=== PATIENT | female | born 1950 | race Caucasian/White ===

== ENCOUNTER 2023-11-07 19:32 | Inpatient (IN) | payer MEDICARE, MEDICAID, SELFPAY ==
[2023-11-07 19:58] VITALS: BP 188/77; PULSE 77; RESP 18; TEMP 36.8; O2SAT 96
[2023-11-07 21:52] VITALS: BP 170/71; PULSE 74; RESP 18; O2SAT 98
[2023-11-07] MEDS: Albuterol Sulfate 90 MCG 8 GM INHALER 2 PUFF INHALE (22:56)
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
[2023-11-08] MEDS: Acetaminophen 325 MG TABLET 650 MG PO ×2 (05:09→11:20)
[2023-11-08 08:00] VITALS: BP 153/76; PULSE 71; RESP 18; TEMP 36.4; O2SAT 98
[2023-11-08] MEDS: Loratadine 10 MG TABLET PO (08:22)
[2023-11-08] MEDS: Cyanocobalamin (Vitamin B-12) 1,000 MCG TABLET 1000 MCG PO (08:22)
[2023-11-08] MEDS: Cholecalciferol (Vitamin D3) 25 MCG TABLET PO (08:22)
[2023-11-08 08:36] LABS: Estimated Average Glucose 103 mg/dL; Hemoglobin A1C 114.7067 umol/L; Hemoglobin A1c % 5.2 % (<6.0); Total Hemoglobin (HGBA1C) 3445.2923 umol/L
[2023-11-08 08:48] LABS: Alanine Aminotransferase 20 U/L (0-31); Albumin Level 4.5 g/dL (3.5-5.0); Alkaline Phosphatase 65 U/L (39-117); Anion Gap 10 (12-20); Aspartate Amino Transferase 27 U/L (5-31); Bilirubin Total 0.5 mg/dL (0.0-1.0); Blood Urea Nitrogen 9 mg/dL (9-16); Calcium 9.6 mg/dL (8.4-10.2); Carbon Dioxide 29 mmol/L (22-29); Chloride 108 mmol/L (96-108); Cholesterol 183 mg/dL (<200); Estimated Glomerular Filt Rate > 60; Glucose Fasting 92 mg/dL (60-99); HDL Cholesterol 46 mg/dL (>40); LDL Cholesterol Calculated 103 mg/dL (<100); Potassium 4.2 mmol/L (3.3-5.1); Sodium 143 mmol/L (135-145); Total Protein 7.1 g/dL (6.5-8.0); Triglycerides 171 mg/dL (<150)
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
[2023-11-08] MEDS: Albuterol Sulfate 90 MCG 8 GM INHALER 2 PUFF INHALE (14:40)
[2023-11-08 20:00] VITALS: BP 137/72; PULSE 71; RESP 18; TEMP 36.8; O2SAT 99
[2023-11-09 08:49] VITALS: BP 146/65; PULSE 77; RESP 18; TEMP 36.4; O2SAT 100
[2023-11-09] MEDS: Cyanocobalamin (Vitamin B-12) 1,000 MCG TABLET 1000 MCG PO (09:33)
[2023-11-09] MEDS: Loratadine 10 MG TABLET PO (09:33)
[2023-11-09] MEDS: Cholecalciferol (Vitamin D3) 25 MCG TABLET PO (09:33)
[2023-11-09 13:58] VITALS: BMI 25.2
[2023-11-09] MEDS: Acetaminophen 325 MG TABLET 650 MG PO (14:15)
--- NOTE | 2023-11-09 15:44 | P.PNPSI_ITS ---
Subjective Subjective Date of Service: 11/09/23 Reason For Visit: Bipolar disorder Subjective Notes: Conditional Voluntary Interim History: The nursing staff reported the patient had been social pleasant, slept 2 hours. The hospital social worker reported that she was discharged last week from another hospital to the [facility] living room. On interview the patient remains with fast speech but easily redirectable. Mental Status Exam Mental Status Exam Patient Appearance: Appropriate Patient Orientation: Person and Situation Level of Consciousness: Awake and Appropriate Patient Behavior: Guarded and Passive Mood Description: Withdrawn Affect Description: Constricted Patient Cognition Impaired: Yes Ability to Follow Directions: Good Speech Pattern: Clear Hallucinations: None Delusions: Not Present Thought Process: Distracted and Slowed Thinking Thought Content: positive for [place] and positive for Poverty of Content Judgement: Fair Diagnostics Vital Signs (24Hr): Vital Signs - 24 hr 11/08/23 20:00 11/09/23 08:49 Temperature 98.3 F 97.6 F Pulse Rate 71 77 Respiratory Rate 18 18 Blood Pressure 137/72 146/65 H Pulse Oximetry 99 100 Oxygen Delivery Method Room Air Room Air BMI result Body Mass Index 25.2 Labs 11/08/23 08:20 Labs: Laboratory Results - last 48 hr 11/08/23 08:20 Sodium 143 Potassium 4.2 Chloride 108 Carbon Dioxide 29 Anion Gap 10 L BUN 9 Creatinine 0.81 Estim Creat Clear Calc TNP Estimated GFR > 60 Fasting Glucose 92 Estimat Average Glucose 103 Hemoglobin A1c % 5.2 Calcium 9.6 Total Bilirubin 0.5 AST 27 ALT 20 Alkaline Phosphatase 65 Total Protein 7.1 Albumin 4.5 Triglycerides 171 H Cholesterol 183 LDL Cholesterol, Calc 103 H HDL Cholesterol 46 TSH 2.90 Medications Medications Current Medications Acetaminophen (Acetaminophen 325 Mg Tablet) 650 mg PO Q6H PRN PRN Reason: Headache/Pain Mild Scale (1-3) Last Admin: 11/09/23 14:15 Dose: 650 mg Al Hydroxide/Mg Hydroxide (Magnesium Hydrox/Alum Hydrox 30 Ml Oral.Susp) 30 ml PO Q6H PRN PRN Reason: Heartburn/Nausea Albuterol Sulfate (Albuterol Sulfate 90 Mcg 8 Gm Inhaler) 2 puff INHALE Q4H PRN PRN Reason: wheezing Last Admin: 11/08/23 14:40 Dose: 2 puff Cyanocobalamin (Cyanocobalamin (Vitamin B-12) 1,000 Mcg Tablet) 1,000 mcg PO DAILY [facility] Last Admin: 11/09/23 09:33 Dose: 1,000 mcg Loratadine (Loratadine 10 Mg Tablet) 10 mg PO DAILY [facility] Last Admin: 11/09/23 09:33 Dose: 10 mg Magnesium Hydroxide (Milk Of Magnesia 30 Ml Oral.Susp) 30 ml PO DAILY PRN PRN Reason: Constipation Nicotine (Nicotine 21 Mg Patch.Td24) 21 mg TRANSDERMA DAILY PRN PRN Reason: smoking cessation Nicotine Polacrilex (Nicotine Polacrilex 2 Mg Gum) 4 mg BUCCAL Q2H PRN PRN Reason: Nicotine Cravings Olanzapine (Olanzapine 2.5 Mg Tablet) 2.5 mg PO TID PRN PRN Reason: agitation Olanzapine (Olanzapine 2.5 Mg Tablet) 2.5 mg PO BEDTIME [facility] Last Admin: 11/08/23 20:32 Dose: Not Given Trazodone HCl (Trazodone Hcl 25 Mg Halftab) 25 mg PO BEDTIME MRX1 PRN PRN Reason: Insomnia Vitamin D (Cholecalciferol (Vitamin D3) 25 Mcg Tablet) 25 mcg PO DAILY [facility] Last Admin: 11/09/23 09:33 Dose: 25 mcg Allergies Allergies Allergy/AdvReac Type Severity Reaction Status Date / Time gluten Allergy Unknown Verified 11/07/23 21:02 ibuprofen Allergy Unknown Verified 11/07/23 21:02 lactose Allergy Unknown Verified 11/07/23 21:02 lamotrigine Allergy Unknown Verified 11/07/23 21:02 Peanut (Legumes) Allergy Unknown Verified 11/07/23 21:02 Assessment & Plan Assessment & Plan (1) Bipolar disorder: Status: Acute Code(s): F31.9 - Bipolar disorder, unspecified (2) Alcohol use disorder in remission: Status: Acute Code(s): F10.91 - Alcohol use, unspecified, in remission Plan The patient is an elderly female with a past history of bipolar disorder and chronic homelessness who was admitted from the emergency room of [facility] after she came in complaining of some somatic complaints but it was evident that she was grossly manic. She is chronically homeless with poor social support. Plan 1. Gather collateral information. 2. The patient is able to contract for safety and she sinus CV 50 minute checks. 3. Continue with Zyprexa as prescribed. 4. Blood work 5. Reassessment with results. Reason for continued inpatient stay Substantial Risk for: inability to function, rapid decompensation and med/psych decompensation Time Spent With Patient Time: Total time managing care of this patient today __20__ minutes.
--- NOTE | 2023-11-09 15:49 | HO.PSYCHPN ---
Subjective Subjective Date of Service: 11/09/23 Reason For Visit: Bipolar disorder Subjective Notes: Conditional Voluntary Diagnostics Vital Signs (24Hr): Vital Signs - 24 hr 11/08/23 20:00 11/09/23 08:49 Temperature 98.3 F 97.6 F Pulse Rate 71 77 Respiratory Rate 18 18 Blood Pressure 137/72 146/65 H Pulse Oximetry 99 100 Oxygen Delivery Method Room Air Room Air BMI result Body Mass Index 25.2 Labs 11/08/23 08:20 Labs: Laboratory Results - last 48 hr 11/08/23 08:20 Sodium 143 Potassium 4.2 Chloride 108 Carbon Dioxide 29 Anion Gap 10 L BUN 9 Creatinine 0.81 Estim Creat Clear Calc TNP Estimated GFR > 60 Fasting Glucose 92 Estimat Average Glucose 103 Hemoglobin A1c % 5.2 Calcium 9.6 Total Bilirubin 0.5 AST 27 ALT 20 Alkaline Phosphatase 65 Total Protein 7.1 Albumin 4.5 Triglycerides 171 H Cholesterol 183 LDL Cholesterol, Calc 103 H HDL Cholesterol 46 TSH 2.90 Medications Medications Current Medications Acetaminophen (Acetaminophen 325 Mg Tablet) 650 mg PO Q6H PRN PRN Reason: Headache/Pain Mild Scale (1-3) Last Admin: 11/09/23 14:15 Dose: 650 mg Al Hydroxide/Mg Hydroxide (Magnesium Hydrox/Alum Hydrox 30 Ml Oral.Susp) 30 ml PO Q6H PRN PRN Reason: Heartburn/Nausea Albuterol Sulfate (Albuterol Sulfate 90 Mcg 8 Gm Inhaler) 2 puff INHALE Q4H PRN PRN Reason: wheezing Last Admin: 11/08/23 14:40 Dose: 2 puff Cyanocobalamin (Cyanocobalamin (Vitamin B-12) 1,000 Mcg Tablet) 1,000 mcg PO DAILY [facility] Last Admin: 11/09/23 09:33 Dose: 1,000 mcg Loratadine (Loratadine 10 Mg Tablet) 10 mg PO DAILY [facility] Last Admin: 11/09/23 09:33 Dose: 10 mg Magnesium Hydroxide (Milk Of Magnesia 30 Ml Oral.Susp) 30 ml PO DAILY PRN PRN Reason: Constipation Nicotine (Nicotine 21 Mg Patch.Td24) 21 mg TRANSDERMA DAILY PRN PRN Reason: smoking cessation Nicotine Polacrilex (Nicotine Polacrilex 2 Mg Gum) 4 mg BUCCAL Q2H PRN PRN Reason: Nicotine Cravings Olanzapine (Olanzapine 2.5 Mg Tablet) 2.5 mg PO TID PRN PRN Reason: agitation Olanzapine (Olanzapine 2.5 Mg Tablet) 2.5 mg PO BEDTIME [facility] Last Admin: 11/08/23 20:32 Dose: Not Given Trazodone HCl (Trazodone Hcl 25 Mg Halftab) 25 mg PO BEDTIME MRX1 PRN PRN Reason: Insomnia Vitamin D (Cholecalciferol (Vitamin D3) 25 Mcg Tablet) 25 mcg PO DAILY [facility] Last Admin: 11/09/23 09:33 Dose: 25 mcg Allergies Allergies Allergy/AdvReac Type Severity Reaction Status Date / Time gluten Allergy Unknown Verified 11/07/23 21:02 ibuprofen Allergy Unknown Verified 11/07/23 21:02 lactose Allergy Unknown Verified 11/07/23 21:02 lamotrigine Allergy Unknown Verified 11/07/23 21:02 Peanut (Legumes) Allergy Unknown Verified 11/07/23 21:02 Assessment & Plan Assessment & Plan (1) Bipolar disorder: Status: Acute Code(s): F31.9 - Bipolar disorder, unspecified (2) Alcohol use disorder in remission: Status: Acute Code(s): F10.91 - Alcohol use, unspecified, in remission Plan The patient is an elderly female with a past history of bipolar disorder and chronic homelessness who was admitted from the emergency room of [facility] after she came in complaining of some somatic complaints but it was evident that she was grossly manic. She is chronically homeless with poor social support. Plan 1. Gather collateral information. 2. The patient is able to contract for safety and she sinus CV 50 minute checks. 3. Continue with Zyprexa as prescribed. 4. Blood work 5. Reassessment with results. Time Spent With Patient Time: Total time managing care of this patient today ____ minutes.
[2023-11-09 20:00] VITALS: BP 118/63; PULSE 78; RESP 16; TEMP 36.2; O2SAT 100
[2023-11-10] MEDS: Cholecalciferol (Vitamin D3) 25 MCG TABLET PO (08:15)
[2023-11-10] MEDS: Loratadine 10 MG TABLET PO (08:15)
[2023-11-10 08:23] VITALS: BP 157/81; PULSE 84; RESP 16; TEMP 36.7; O2SAT 96
--- NOTE | 2023-11-10 09:16 | P.PNPSI_ITS ---
Subjective Subjective Date of Service: 11/10/23 Reason For Visit: Bipolar disorder Subjective Notes: Conditional Voluntary Interim History: The nursing staff reported the patient had been refusing Zyprexa but she slept poorly last night, easily redirectable with fast speech. On interview the patient denies new symptoms Mental Status Exam Mental Status Exam Patient Appearance: Appropriate Patient Orientation: Person and Situation Level of Consciousness: Awake and Appropriate Patient Behavior: Guarded and Passive Mood Description: Withdrawn Affect Description: Constricted Patient Cognition Impaired: Yes Ability to Follow Directions: Good Speech Pattern: Clear Hallucinations: None Delusions: Not Present Thought Process: Racing, Distracted and Evasive Thought Content: positive for Circumstantial Judgement: Poor Diagnostics Vital Signs (24Hr): Vital Signs - 24 hr 11/09/23 20:00 Temperature 97.2 F Pulse Rate 78 Respiratory Rate 16 Blood Pressure 118/63 Pulse Oximetry 100 Oxygen Delivery Method Room Air BMI result Body Mass Index 25.2 Labs 11/08/23 08:20 Medications Medications Current Medications Acetaminophen (Acetaminophen 325 Mg Tablet) 650 mg PO Q6H PRN PRN Reason: Headache/Pain Mild Scale (1-3) Last Admin: 11/09/23 14:15 Dose: 650 mg Al Hydroxide/Mg Hydroxide (Magnesium Hydrox/Alum Hydrox 30 Ml Oral.Susp) 30 ml PO Q6H PRN PRN Reason: Heartburn/Nausea Albuterol Sulfate (Albuterol Sulfate 90 Mcg 8 Gm Inhaler) 2 puff INHALE Q4H PRN PRN Reason: wheezing Last Admin: 11/08/23 14:40 Dose: 2 puff Cyanocobalamin (Cyanocobalamin (Vitamin B-12) 1,000 Mcg Tablet) 1,000 mcg PO DAILY [facility] Last Admin: 11/09/23 09:33 Dose: 1,000 mcg Loratadine (Loratadine 10 Mg Tablet) 10 mg PO DAILY [facility] Last Admin: 11/09/23 09:33 Dose: 10 mg Magnesium Hydroxide (Milk Of Magnesia 30 Ml Oral.Susp) 30 ml PO DAILY PRN PRN Reason: Constipation Nicotine (Nicotine 21 Mg Patch.Td24) 21 mg TRANSDERMA DAILY PRN PRN Reason: smoking cessation Nicotine Polacrilex (Nicotine Polacrilex 2 Mg Gum) 4 mg BUCCAL Q2H PRN PRN Reason: Nicotine Cravings Olanzapine (Olanzapine 2.5 Mg Tablet) 2.5 mg PO TID PRN PRN Reason: agitation Olanzapine (Olanzapine 2.5 Mg Tablet) 2.5 mg PO BEDTIME [facility] Last Admin: 11/09/23 20:44 Dose: Not Given Trazodone HCl (Trazodone Hcl 25 Mg Halftab) 25 mg PO BEDTIME MRX1 PRN PRN Reason: Insomnia Vitamin D (Cholecalciferol (Vitamin D3) 25 Mcg Tablet) 25 mcg PO DAILY [facility] Last Admin: 11/09/23 09:33 Dose: 25 mcg Zinc Acetate/Diphenhydramine (Diphenhydramine Hcl 2 % Cream 28 Gm Tube) 1 appl TOPICAL QID PRN; Protocol PRN Reason: Itching Allergies Allergies Allergy/AdvReac Type Severity Reaction Status Date / Time gluten Allergy Unknown Verified 11/07/23 21:02 ibuprofen Allergy Unknown Verified 11/07/23 21:02 lactose Allergy Unknown Verified 11/07/23 21:02 lamotrigine Allergy Unknown Verified 11/07/23 21:02 Peanut (Legumes) Allergy Unknown Verified 11/07/23 21:02 Assessment & Plan Assessment & Plan (1) Bipolar disorder: Status: Acute Code(s): F31.9 - Bipolar disorder, unspecified (2) Alcohol use disorder in remission: Status: Acute Code(s): F10.91 - Alcohol use, unspecified, in remission Plan The patient is an elderly female, chronically homeless with a past history of mental illness who was transferred to this facility after she had medical problems and it was evident the patient was manic with dementia. Plan 1. Continue with same treatment. 2. Referred for placement. Reason for continued inpatient stay Substantial Risk for: inability to function, rapid decompensation and med/psych decompensation Time Spent With Patient Time: Total time managing care of this patient today __20__ minutes.
[2023-11-10] MEDS: Cyanocobalamin (Vitamin B-12) 1,000 MCG TABLET 1000 MCG PO (10:43)
[2023-11-10] MEDS: diphenhydrAMINE HCl 2 % Cream 28 GM TUBE 1 APPL TOPICAL (15:58)
[2023-11-10 20:00] VITALS: BP 124/72; PULSE 76; RESP 16; TEMP 36.8; O2SAT 96
[2023-11-11] MEDS: Acetaminophen 325 MG TABLET 650 MG PO ×2 (02:55→10:19)
[2023-11-11] MEDS: diphenhydrAMINE HCl 2 % Cream 28 GM TUBE 1 APPL TOPICAL (02:56)
[2023-11-11 08:16] VITALS: BP 158/74; PULSE 78; RESP 16; TEMP 36.9; O2SAT 100
[2023-11-11] MEDS: Cholecalciferol (Vitamin D3) 25 MCG TABLET PO (09:15)
[2023-11-11] MEDS: Cyanocobalamin (Vitamin B-12) 1,000 MCG TABLET 1000 MCG PO (09:15)
[2023-11-11] MEDS: Loratadine 10 MG TABLET PO (09:15)
[2023-11-11] MEDS: Albuterol Sulfate 90 MCG 8 GM INHALER 2 PUFF INHALE (11:07)
--- NOTE | 2023-11-11 15:56 | P.PNPSI_ITS ---
Subjective Subjective Date of Service: 11/11/23 Reason For Visit: Bipolar disorder Subjective Notes: Conditional Voluntary Interim History: The nursing staff reported the patient refused her Zyprexa at night she took Tylenol and Benadryl slept 6 hours. 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 On interview the patient denies new symptoms, waiting for placement. Mental Status Exam Mental Status Exam Patient Appearance: Appropriate Patient Orientation: Person and Situation Level of Consciousness: Awake and Appropriate Patient Behavior: Guarded and Passive Mood Description: Withdrawn Affect Description: Constricted Patient Cognition Impaired: Yes Ability to Follow Directions: Good Speech Pattern: Clear Hallucinations: None Delusions: Ideas of Reference Thought Process: Racing and Distracted Thought Content: positive for [place] and positive for Poverty of Content Judgement: Poor Diagnostics Vital Signs (24Hr): Vital Signs - 24 hr 11/10/23 20:00 11/11/23 08:16 Temperature 98.2 F 98.4 F Pulse Rate 76 78 Respiratory Rate 16 16 Blood Pressure 124/72 158/74 H Pulse Oximetry 96 100 Oxygen Delivery Method Room Air Room Air BMI result Body Mass Index 25.2 Labs 11/08/23 08:20 Medications Medications Current Medications Acetaminophen (Acetaminophen 325 Mg Tablet) 650 mg PO Q6H PRN PRN Reason: Headache/Pain Mild Scale (1-3) Last Admin: 11/11/23 10:19 Dose: 650 mg Al Hydroxide/Mg Hydroxide (Magnesium Hydrox/Alum Hydrox 30 Ml Oral.Susp) 30 ml PO Q6H PRN PRN Reason: Heartburn/Nausea Albuterol Sulfate (Albuterol Sulfate 90 Mcg 8 Gm Inhaler) 2 puff INHALE Q4H PRN PRN Reason: wheezing Last Admin: 11/11/23 11:07 Dose: 2 puff Cyanocobalamin (Cyanocobalamin (Vitamin B-12) 1,000 Mcg Tablet) 1,000 mcg PO DAILY [facility] Last Admin: 11/11/23 09:15 Dose: 1,000 mcg Loratadine (Loratadine 10 Mg Tablet) 10 mg PO DAILY [facility] Last Admin: 11/11/23 09:15 Dose: 10 mg Magnesium Hydroxide (Milk Of Magnesia 30 Ml Oral.Susp) 30 ml PO DAILY PRN PRN Reason: Constipation Nicotine (Nicotine 21 Mg Patch.Td24) 21 mg TRANSDERMA DAILY PRN PRN Reason: smoking cessation Nicotine Polacrilex (Nicotine Polacrilex 2 Mg Gum) 4 mg BUCCAL Q2H PRN PRN Reason: Nicotine Cravings Olanzapine (Olanzapine 2.5 Mg Tablet) 2.5 mg PO TID PRN PRN Reason: agitation Olanzapine (Olanzapine 2.5 Mg Tablet) 2.5 mg PO BEDTIME [facility] Last Admin: 11/10/23 20:19 Dose: Not Given Trazodone HCl (Trazodone Hcl 25 Mg Halftab) 25 mg PO BEDTIME MRX1 PRN PRN Reason: Insomnia Vitamin D (Cholecalciferol (Vitamin D3) 25 Mcg Tablet) 25 mcg PO DAILY [facility] Last Admin: 11/11/23 09:15 Dose: 25 mcg Zinc Acetate/Diphenhydramine (Diphenhydramine Hcl 2 % Cream 28 Gm Tube) 1 appl TOPICAL QID PRN; Protocol PRN Reason: Itching Last Admin: 11/11/23 02:56 Dose: 1 appl Allergies Allergies Allergy/AdvReac Type Severity Reaction Status Date / Time gluten Allergy Unknown Verified 11/07/23 21:02 ibuprofen Allergy Unknown Verified 11/07/23 21:02 lactose Allergy Unknown Verified 11/07/23 21:02 lamotrigine Allergy Unknown Verified 11/07/23 21:02 Peanut (Legumes) Allergy Unknown Verified 11/07/23 21:02 Assessment & Plan Assessment & Plan (1) Bipolar disorder: Status: Acute Code(s): F31.9 - Bipolar disorder, unspecified (2) Alcohol use disorder in remission: Status: Acute Code(s): F10.91 - Alcohol use, unspecified, in remission Plan The patient is an elderly female, chronically homeless with a past history of mental illness who was transferred to this facility after she had medical problems and it was evident the patient was manic with dementia. Plan 1. Continue with same treatment. 2. Referred for placement. Reason for continued inpatient stay Substantial Risk for: inability to function, rapid decompensation and med/psych decompensation Time Spent With Patient Time: Total time managing care of this patient today _20___ minutes.
[2023-11-11 20:00] VITALS: BP 134/64; PULSE 74; RESP 18; TEMP 36.3; O2SAT 99
[2023-11-12] MEDS: Acetaminophen 325 MG TABLET 650 MG PO ×2 (01:32→08:12)
[2023-11-12] MEDS: Albuterol Sulfate 90 MCG 8 GM INHALER 2 PUFF INHALE (05:12)
[2023-11-12 08:08] VITALS: BP 141/67; PULSE 79; RESP 18; TEMP 36.4; O2SAT 100
[2023-11-12] MEDS: Cyanocobalamin (Vitamin B-12) 1,000 MCG TABLET 1000 MCG PO (08:12)
[2023-11-12] MEDS: Cholecalciferol (Vitamin D3) 25 MCG TABLET PO (08:12)
[2023-11-12] MEDS: Loratadine 10 MG TABLET PO (08:12)
--- NOTE | 2023-11-12 10:57 | HO.PSYCHPN ---
Subjective Subjective Date of Service: 11/12/23 Reason For Visit: Bipolar disorder Subjective Notes: Conditional Voluntary Interim History: Patient was seen and discussed in rounds today. Records and plans were reviewed. She is awaiting placement. She refused her Zyprexa again. No major behavioral issues. This morning she is complaining of severe headache which did not respond to Tylenol and she is allergic to ibuprofen. I ordered 1 dose of Fioricet. Eating and sleeping adequately for the most part. She is upset about some medication changes that have been made for her but I did not change or add anything else. Review of Systems Review of Systems Severe headache Yes all other systems are reviewed and are negative Mental Status Exam Mental Status Exam Patient Appearance: Appropriate Patient Orientation: Person and Situation Level of Consciousness: Awake and Appropriate Patient Behavior: Guarded and Passive Mood Description: Withdrawn Affect Description: Constricted Patient Cognition Impaired: Yes Ability to Follow Directions: Good Speech Pattern: Clear Hallucinations: None Delusions: Ideas of Reference Thought Process: Racing and Distracted Thought Content: positive for [place] and positive for Poverty of Content Judgement: Poor Diagnostics Vital Signs (24Hr): Vital Signs - 24 hr 11/11/23 20:00 11/12/23 08:08 Temperature 97.3 F 97.6 F Pulse Rate 74 79 Respiratory Rate 18 18 Blood Pressure 134/64 141/67 H Pulse Oximetry 99 100 Oxygen Delivery Method Room Air Room Air BMI result Body Mass Index 25.2 Labs 11/08/23 08:20 Medications Medications Current Medications Acetaminophen (Acetaminophen 325 Mg Tablet) 650 mg PO Q6H PRN PRN Reason: Headache/Pain Mild Scale (1-3) Last Admin: 11/12/23 08:12 Dose: 650 mg Al Hydroxide/Mg Hydroxide (Magnesium Hydrox/Alum Hydrox 30 Ml Oral.Susp) 30 ml PO Q6H PRN PRN Reason: Heartburn/Nausea Albuterol Sulfate (Albuterol Sulfate 90 Mcg 8 Gm Inhaler) 2 puff INHALE Q4H PRN PRN Reason: wheezing Last Admin: 11/12/23 05:12 Dose: 2 puff Cyanocobalamin (Cyanocobalamin (Vitamin B-12) 1,000 Mcg Tablet) 1,000 mcg PO DAILY [facility] Last Admin: 11/12/23 08:12 Dose: 1,000 mcg Loratadine (Loratadine 10 Mg Tablet) 10 mg PO DAILY [facility] Last Admin: 11/12/23 08:12 Dose: 10 mg Magnesium Hydroxide (Milk Of Magnesia 30 Ml Oral.Susp) 30 ml PO DAILY PRN PRN Reason: Constipation Nicotine (Nicotine 21 Mg Patch.Td24) 21 mg TRANSDERMA DAILY PRN PRN Reason: smoking cessation Nicotine Polacrilex (Nicotine Polacrilex 2 Mg Gum) 4 mg BUCCAL Q2H PRN PRN Reason: Nicotine Cravings Olanzapine (Olanzapine 2.5 Mg Tablet) 2.5 mg PO TID PRN PRN Reason: agitation Olanzapine (Olanzapine 2.5 Mg Tablet) 2.5 mg PO BEDTIME [facility] Last Admin: 11/11/23 20:57 Dose: Not Given Trazodone HCl (Trazodone Hcl 25 Mg Halftab) 25 mg PO BEDTIME MRX1 PRN PRN Reason: Insomnia Vitamin D (Cholecalciferol (Vitamin D3) 25 Mcg Tablet) 25 mcg PO DAILY [facility] Last Admin: 11/12/23 08:12 Dose: 25 mcg Zinc Acetate/Diphenhydramine (Diphenhydramine Hcl 2 % Cream 28 Gm Tube) 1 appl TOPICAL QID PRN; Protocol PRN Reason: Itching Last Admin: 11/11/23 02:56 Dose: 1 appl Allergies Allergies Allergy/AdvReac Type Severity Reaction Status Date / Time nut - unspecified Allergy Severe Anaphylaxis Verified 11/12/23 09:54 tree nut Allergy Severe Anaphylaxis Verified 11/12/23 09:53 gluten Allergy Unknown Verified 11/07/23 21:02 ibuprofen Allergy Unknown Verified 11/07/23 21:02 lactose Allergy Unknown Verified 11/07/23 21:02 lamotrigine Allergy Unknown Verified 11/07/23 21:02 Peanut (Legumes) Allergy Unknown Verified 11/07/23 21:02 Assessment & Plan Assessment & Plan (1) Bipolar disorder: Status: Acute Code(s): F31.9 - Bipolar disorder, unspecified (2) Alcohol use disorder in remission: Status: Acute Code(s): F10.91 - Alcohol use, unspecified, in remission Plan The patient is an elderly female, chronically homeless with a past history of mental illness who was transferred to this facility after she had medical problems and it was evident the patient was manic with dementia. Plan 1. Continue with same treatment. 2. Referred for placement. 11/11: Continue current regimen and plans Reason for continued inpatient stay Substantial Risk for: med/psych decompensation Time Spent With Patient Time: Total time managing care of this patient today ____ minutes.
[2023-11-12] MEDS: Butalb/Acetamin/Caff 50/325/40 TABLET 1 TAB PO (11:55)
[2023-11-12 20:00] VITALS: BP 148/88; PULSE 83; RESP 16; TEMP 36.8; O2SAT 99
[2023-11-13 07:45] VITALS: BP 144/66; PULSE 73; RESP 18; TEMP 36.6; O2SAT 97
--- NOTE | 2023-11-13 08:24 | P.PNPSI_ITS ---
Subjective Subjective Date of Service: 11/13/23 Reason For Visit: Bipolar disorder Subjective Notes: Conditional Voluntary Interim History: Patient was seen and discussed in rounds today. Records and plans were reviewed. She states that she is confused as to why she is on psychiatric unit. She went through a hole written list of questions and problems that led to her coming here. She is also wanting to know why she was not put on her Paxil and BuSpar which she will talk to her doctor tomorrow. She has been refusing the olanzapine. She had a severe headache yesterday that was not relieved by Tylenol but was with Fioricet. Review of Systems Review of Systems Yes all other systems are reviewed and are negative Mental Status Exam Mental Status Exam Patient Appearance: Appropriate Patient Orientation: Person and Situation Level of Consciousness: Awake and Appropriate Patient Behavior: Guarded and Passive Mood Description: Withdrawn Affect Description: Constricted Patient Cognition Impaired: Yes Ability to Follow Directions: Good Speech Pattern: Clear Hallucinations: None Delusions: Ideas of Reference Thought Process: Racing and Distracted Thought Content: positive for [place] and positive for Poverty of Content Judgement: Poor Diagnostics Vital Signs (24Hr): Vital Signs - 24 hr 11/12/23 20:00 11/13/23 07:45 Temperature 98.2 F 97.8 F Pulse Rate 83 73 Respiratory Rate 16 18 Blood Pressure 148/88 H 144/66 H Pulse Oximetry 99 97 Oxygen Delivery Method Room Air Room Air BMI result Body Mass Index 25.2 Labs 11/08/23 08:20 Medications Medications Current Medications Acetaminophen (Acetaminophen 325 Mg Tablet) 650 mg PO Q6H PRN PRN Reason: Headache/Pain Mild Scale (1-3) Last Admin: 11/12/23 08:12 Dose: 650 mg Al Hydroxide/Mg Hydroxide (Magnesium Hydrox/Alum Hydrox 30 Ml Oral.Susp) 30 ml PO Q6H PRN PRN Reason: Heartburn/Nausea Albuterol Sulfate (Albuterol Sulfate 90 Mcg 8 Gm Inhaler) 2 puff INHALE Q4H PRN PRN Reason: wheezing Last Admin: 11/12/23 05:12 Dose: 2 puff Cyanocobalamin (Cyanocobalamin (Vitamin B-12) 1,000 Mcg Tablet) 1,000 mcg PO DAILY [facility] Last Admin: 11/12/23 08:12 Dose: 1,000 mcg Loratadine (Loratadine 10 Mg Tablet) 10 mg PO DAILY [facility] Last Admin: 11/12/23 08:12 Dose: 10 mg Magnesium Hydroxide (Milk Of Magnesia 30 Ml Oral.Susp) 30 ml PO DAILY PRN PRN Reason: Constipation Nicotine (Nicotine 21 Mg Patch.Td24) 21 mg TRANSDERMA DAILY PRN PRN Reason: smoking cessation Nicotine Polacrilex (Nicotine Polacrilex 2 Mg Gum) 4 mg BUCCAL Q2H PRN PRN Reason: Nicotine Cravings Olanzapine (Olanzapine 2.5 Mg Tablet) 2.5 mg PO TID PRN PRN Reason: agitation Olanzapine (Olanzapine 2.5 Mg Tablet) 2.5 mg PO BEDTIME [facility] Last Admin: 11/12/23 20:35 Dose: Not Given Trazodone HCl (Trazodone Hcl 25 Mg Halftab) 25 mg PO BEDTIME MRX1 PRN PRN Reason: Insomnia Vitamin D (Cholecalciferol (Vitamin D3) 25 Mcg Tablet) 25 mcg PO DAILY [facility] Last Admin: 11/12/23 08:12 Dose: 25 mcg Zinc Acetate/Diphenhydramine (Diphenhydramine Hcl 2 % Cream 28 Gm Tube) 1 appl TOPICAL QID PRN; Protocol PRN Reason: Itching Last Admin: 11/11/23 02:56 Dose: 1 appl Allergies Allergies Allergy/AdvReac Type Severity Reaction Status Date / Time nut - unspecified Allergy Severe Anaphylaxis Verified 11/12/23 09:54 tree nut Allergy Severe Anaphylaxis Verified 11/12/23 09:53 gluten Allergy Unknown Verified 11/07/23 21:02 ibuprofen Allergy Unknown Verified 11/07/23 21:02 lactose Allergy Unknown Verified 11/07/23 21:02 lamotrigine Allergy Unknown Verified 11/07/23 21:02 Peanut (Legumes) Allergy Unknown Verified 11/07/23 21:02 Assessment & Plan Assessment & Plan (1) Bipolar disorder: Status: Acute Code(s): F31.9 - Bipolar disorder, unspecified (2) Alcohol use disorder in remission: Status: Acute Code(s): F10.91 - Alcohol use, unspecified, in remission Plan The patient is an elderly female, chronically homeless with a past history of mental illness who was transferred to this facility after she had medical problems and it was evident the patient was manic with dementia. Plan 1. Continue with same treatment. 2. Referred for placement. 11/11: Continue current regimen and plans 11/12: Continue current regimen and plans Reason for continued inpatient stay Substantial Risk for: med/psych decompensation Time Spent With Patient Time: Total time managing care of this patient today ____ minutes.
[2023-11-13] MEDS: Loratadine 10 MG TABLET PO (08:38)
[2023-11-13] MEDS: Cyanocobalamin (Vitamin B-12) 1,000 MCG TABLET 1000 MCG PO (08:38)
[2023-11-13] MEDS: Cholecalciferol (Vitamin D3) 25 MCG TABLET PO (08:38)
[2023-11-13] MEDS: Acetaminophen 325 MG TABLET 650 MG PO (09:18)
[2023-11-13] MEDS: Albuterol Sulfate 90 MCG 8 GM INHALER 2 PUFF INHALE (09:18)
[2023-11-13] MEDS: Butalb/Acetamin/Caff 50/325/40 TABLET 1 TAB PO (11:16)
[2023-11-13 20:00] VITALS: BP 143/80; PULSE 84; RESP 16; TEMP 36.8; O2SAT 98
[2023-11-13] MEDS: Lidocaine 4 % Patch ADH..PATCH 2 PATCH TRANSDERMA (23:00)
[2023-11-14 08:05] VITALS: BP 160/82; PULSE 85; RESP 18; TEMP 36.8; O2SAT 99
[2023-11-14] MEDS: Loratadine 10 MG TABLET PO (08:36)
[2023-11-14] MEDS: Cholecalciferol (Vitamin D3) 25 MCG TABLET PO (08:36)
[2023-11-14] MEDS: Cyanocobalamin (Vitamin B-12) 1,000 MCG TABLET 1000 MCG PO (08:36)
[2023-11-14] MEDS: Albuterol Sulfate 90 MCG 8 GM INHALER 2 PUFF INHALE (08:40)
[2023-11-14] MEDS: Acetaminophen 325 MG TABLET 650 MG PO ×2 (09:38→21:42)
--- NOTE | 2023-11-14 13:56 | HO.PSYCHPN ---
Subjective Subjective Date of Service: 11/14/23 Reason For Visit: Bipolar disorder Subjective Notes: Conditional Voluntary Interim History: The nursing staff reported the patient refused her medications at night she has been pleasant, cooperative. The occupational therapist did an Pop test and she scored 5.0 her Mason test is 23/30. Her roommate needed to be changed since the patient was blocking her to live her room, very intrusive but redirectable. No insight into her condition. On interview the patient states that she wants to find placement as soon as possible but she is technically homeless. Mental Status Exam Mental Status Exam Patient Appearance: Appropriate Patient Orientation: Person and Situation Level of Consciousness: Awake and Appropriate Patient Behavior: Guarded and Passive Mood Description: Withdrawn Affect Description: Constricted Patient Cognition Impaired: Yes Ability to Follow Directions: Good Speech Pattern: Clear Hallucinations: None Delusions: Not Present Thought Process: Distracted and Slowed Thinking Thought Content: positive for [place] and positive for Poverty of Content Judgement: Fair Diagnostics Vital Signs (24Hr): Vital Signs - 24 hr 11/13/23 20:00 11/14/23 08:05 Temperature 98.2 F 98.2 F Pulse Rate 84 85 Respiratory Rate 16 18 Blood Pressure 143/80 H 160/82 H Pulse Oximetry 98 99 Oxygen Delivery Method Room Air Room Air BMI result Body Mass Index 25.2 Labs 11/08/23 08:20 Medications Medications Current Medications Acetaminophen (Acetaminophen 325 Mg Tablet) 650 mg PO Q6H PRN PRN Reason: Headache/Pain Mild Scale (1-3) Last Admin: 11/14/23 09:38 Dose: 650 mg Al Hydroxide/Mg Hydroxide (Magnesium Hydrox/Alum Hydrox 30 Ml Oral.Susp) 30 ml PO Q6H PRN PRN Reason: Heartburn/Nausea Albuterol Sulfate (Albuterol Sulfate 90 Mcg 8 Gm Inhaler) 2 puff INHALE Q4H PRN PRN Reason: wheezing Last Admin: 11/14/23 08:40 Dose: 2 puff Cyanocobalamin (Cyanocobalamin (Vitamin B-12) 1,000 Mcg Tablet) 1,000 mcg PO DAILY [facility] Last Admin: 11/14/23 08:36 Dose: 1,000 mcg Loratadine (Loratadine 10 Mg Tablet) 10 mg PO DAILY [facility] Last Admin: 11/14/23 08:36 Dose: 10 mg Magnesium Hydroxide (Milk Of Magnesia 30 Ml Oral.Susp) 30 ml PO DAILY PRN PRN Reason: Constipation Nicotine (Nicotine 21 Mg Patch.Td24) 21 mg TRANSDERMA DAILY PRN PRN Reason: smoking cessation Nicotine Polacrilex (Nicotine Polacrilex 2 Mg Gum) 4 mg BUCCAL Q2H PRN PRN Reason: Nicotine Cravings Olanzapine (Olanzapine 2.5 Mg Tablet) 2.5 mg PO TID PRN PRN Reason: agitation Olanzapine (Olanzapine 2.5 Mg Tablet) 2.5 mg PO BEDTIME [facility] Last Admin: 11/13/23 20:04 Dose: Not Given Trazodone HCl (Trazodone Hcl 25 Mg Halftab) 25 mg PO BEDTIME MRX1 PRN PRN Reason: Insomnia Vitamin D (Cholecalciferol (Vitamin D3) 25 Mcg Tablet) 25 mcg PO DAILY [facility] Last Admin: 11/14/23 08:36 Dose: 25 mcg Zinc Acetate/Diphenhydramine (Diphenhydramine Hcl 2 % Cream 28 Gm Tube) 1 appl TOPICAL QID PRN; Protocol PRN Reason: Itching Last Admin: 11/11/23 02:56 Dose: 1 appl Allergies Allergies Allergy/AdvReac Type Severity Reaction Status Date / Time nut - unspecified Allergy Severe Anaphylaxis Verified 11/12/23 09:54 tree nut Allergy Severe Anaphylaxis Verified 11/12/23 09:53 gluten Allergy Unknown Verified 11/07/23 21:02 ibuprofen Allergy Unknown Verified 11/07/23 21:02 lactose Allergy Unknown Verified 11/07/23 21:02 lamotrigine Allergy Unknown Verified 11/07/23 21:02 Peanut (Legumes) Allergy Unknown Verified 11/07/23 21:02 Assessment & Plan Assessment & Plan (1) Bipolar disorder: Status: Acute Code(s): F31.9 - Bipolar disorder, unspecified (2) Alcohol use disorder in remission: Status: Acute Code(s): F10.91 - Alcohol use, unspecified, in remission Plan The patient is an elderly female, chronically homeless with a past history of mental illness who was transferred to this facility after she had medical problems and it was evident the patient was manic with dementia. Plan 1. Continue with same treatment. 2. Referred for placement. 3. Encourage compliance Reason for continued inpatient stay Substantial Risk for: inability to function, rapid decompensation and med/psych decompensation Time Spent With Patient Time: Total time managing care of this patient today __20__ minutes.
[2023-11-14 20:00] VITALS: BP 146/77; PULSE 79; TEMP 36.3; O2SAT 99
[2023-11-15 08:03] VITALS: BP 160/84; PULSE 88; RESP 18; TEMP 36.1; O2SAT 98
[2023-11-15] MEDS: Cyanocobalamin (Vitamin B-12) 1,000 MCG TABLET 1000 MCG PO (08:30)
[2023-11-15] MEDS: Cholecalciferol (Vitamin D3) 25 MCG TABLET PO (08:31)
[2023-11-15] MEDS: Loratadine 10 MG TABLET PO (08:31)
[2023-11-15] MEDS: Albuterol Sulfate 90 MCG 8 GM INHALER 2 PUFF INHALE ×2 (08:36→14:02)
--- NOTE | 2023-11-15 11:36 | HO.PSYCHPN ---
Subjective Subjective Date of Service: 11/15/23 Reason For Visit: Bipolar disorder Subjective Notes: Conditional Voluntary Interim History: The nursing staff reported the patient has refused Zyprexa she remains labile with anxiety and reported depression. She slept well. The social science analyst reported that [facility] will assess her today. On interview the patient denies new symptoms she states that she is not bipolar that she was misdiagnosed but it is evident that she has hypomania. Even though, no behavioral disturbances. Mental Status Exam Mental Status Exam Patient Appearance: Well Grooomed and Appropriate Patient Orientation: Person and Situation Level of Consciousness: Awake and Appropriate Patient Behavior: Guarded and Passive Mood Description: Calm Affect Description: Constricted Patient Cognition Impaired: Yes Ability to Follow Directions: Good Speech Pattern: Clear Hallucinations: None Delusions: Not Present Thought Process: Distracted and Evasive Thought Content: positive for [place] and positive for Poverty of Content Judgement: Fair Diagnostics Vital Signs (24Hr): Vital Signs - 24 hr 11/14/23 20:00 11/15/23 08:03 Temperature 97.3 F 96.9 F Pulse Rate 79 88 Respiratory Rate 18 Blood Pressure 146/77 H 160/84 H Pulse Oximetry 99 98 Oxygen Delivery Method Room Air Room Air BMI result Body Mass Index 25.2 Labs 11/08/23 08:20 Medications Medications Current Medications Acetaminophen (Acetaminophen 325 Mg Tablet) 650 mg PO Q6H PRN PRN Reason: Headache/Pain Mild Scale (1-3) Last Admin: 11/14/23 21:42 Dose: 650 mg Al Hydroxide/Mg Hydroxide (Magnesium Hydrox/Alum Hydrox 30 Ml Oral.Susp) 30 ml PO Q6H PRN PRN Reason: Heartburn/Nausea Albuterol Sulfate (Albuterol Sulfate 90 Mcg 8 Gm Inhaler) 2 puff INHALE Q4H PRN PRN Reason: wheezing Last Admin: 11/15/23 08:36 Dose: 2 puff Cyanocobalamin (Cyanocobalamin (Vitamin B-12) 1,000 Mcg Tablet) 1,000 mcg PO DAILY [facility] Last Admin: 11/15/23 08:30 Dose: 1,000 mcg Loratadine (Loratadine 10 Mg Tablet) 10 mg PO DAILY [facility] Last Admin: 11/15/23 08:31 Dose: 10 mg Magnesium Hydroxide (Milk Of Magnesia 30 Ml Oral.Susp) 30 ml PO DAILY PRN PRN Reason: Constipation Nicotine (Nicotine 21 Mg Patch.Td24) 21 mg TRANSDERMA DAILY PRN PRN Reason: smoking cessation Nicotine Polacrilex (Nicotine Polacrilex 2 Mg Gum) 4 mg BUCCAL Q2H PRN PRN Reason: Nicotine Cravings Olanzapine (Olanzapine 2.5 Mg Tablet) 2.5 mg PO TID PRN PRN Reason: agitation Olanzapine (Olanzapine 2.5 Mg Tablet) 2.5 mg PO BEDTIME [facility] Last Admin: 11/14/23 21:01 Dose: Not Given Trazodone HCl (Trazodone Hcl 25 Mg Halftab) 25 mg PO BEDTIME MRX1 PRN PRN Reason: Insomnia Vitamin D (Cholecalciferol (Vitamin D3) 25 Mcg Tablet) 25 mcg PO DAILY [facility] Last Admin: 11/15/23 08:31 Dose: 25 mcg Zinc Acetate/Diphenhydramine (Diphenhydramine Hcl 2 % Cream 28 Gm Tube) 1 appl TOPICAL QID PRN; Protocol PRN Reason: Itching Last Admin: 11/11/23 02:56 Dose: 1 appl Allergies Allergies Allergy/AdvReac Type Severity Reaction Status Date / Time nut - unspecified Allergy Severe Anaphylaxis Verified 11/12/23 09:54 tree nut Allergy Severe Anaphylaxis Verified 11/12/23 09:53 gluten Allergy Unknown Verified 11/07/23 21:02 ibuprofen Allergy Unknown Verified 11/07/23 21:02 lactose Allergy Unknown Verified 11/07/23 21:02 lamotrigine Allergy Unknown Verified 11/07/23 21:02 Peanut (Legumes) Allergy Unknown Verified 11/07/23 21:02 Assessment & Plan Assessment & Plan (1) Bipolar disorder: Status: Acute Code(s): F31.9 - Bipolar disorder, unspecified (2) Alcohol use disorder in remission: Status: Acute Code(s): F10.91 - Alcohol use, unspecified, in remission Plan The patient is an elderly female, chronically homeless with a past history of mental illness who was transferred to this facility after she had medical problems and it was evident the patient was manic with dementia. Plan 1. Continue with same treatment. 2. Referred for placement. 3. Encourage compliance Reason for continued inpatient stay Substantial Risk for: inability to function, rapid decompensation and med/psych decompensation Time Spent With Patient Time: Total time managing care of this patient today __20__ minutes.
[2023-11-15] MEDS: Acetaminophen 325 MG TABLET 650 MG PO ×2 (14:00→20:15)
--- NOTE | 2023-11-15 17:30 | PC.NURSE ---
The patient signed a Three Day Notice today.
[2023-11-15 20:00] VITALS: BP 146/82; PULSE 83; RESP 18; TEMP 36.1; O2SAT 98
[2023-11-16] MEDS: Acetaminophen 325 MG TABLET 650 MG PO ×2 (05:13→15:33)
[2023-11-16 08:00] VITALS: BP 147/77; PULSE 82; RESP 18; TEMP 36.4; O2SAT 99
[2023-11-16] MEDS: Cyanocobalamin (Vitamin B-12) 1,000 MCG TABLET 1000 MCG PO (09:38)
[2023-11-16] MEDS: Cholecalciferol (Vitamin D3) 25 MCG TABLET PO (09:39)
[2023-11-16] MEDS: Loratadine 10 MG TABLET PO (09:39)
--- NOTE | 2023-11-16 13:52 | P.PNPSI_ITS ---
Subjective Subjective Date of Service: 11/16/23 Reason For Visit: Bipolar disorder Subjective Notes: Conditional Voluntary Interim History: Nursing staff reported the patient signed a 3 day notice last night but today in the morning she recanted. She had been talkative hyperverbal slept 7 hours. She has refused her medications. The vp digital marketing social media and crm is working with her for placement. She will have a visitor [facility] for tomorrow. On interview the patient denies new symptoms, waiting for placement. Mental Status Exam Mental Status Exam Patient Appearance: Well Grooomed and Appropriate Patient Orientation: Person and Situation Level of Consciousness: Awake and Appropriate Patient Behavior: Guarded and Passive Mood Description: Withdrawn Affect Description: Constricted Patient Cognition Impaired: Yes Ability to Follow Directions: Good Speech Pattern: Clear Hallucinations: None Delusions: Not Present Thought Process: Distracted and Slowed Thinking Thought Content: positive for [place] and positive for Poverty of Content Judgement: Fair Diagnostics Vital Signs (24Hr): Vital Signs - 24 hr 11/15/23 20:00 11/16/23 08:00 Temperature 97 F 97.6 F Pulse Rate 83 82 Respiratory Rate 18 18 Blood Pressure 146/82 H 147/77 H Pulse Oximetry 98 99 Oxygen Delivery Method Room Air Room Air BMI result Body Mass Index 25.2 Labs 11/08/23 08:20 Medications Medications Current Medications Acetaminophen (Acetaminophen 325 Mg Tablet) 650 mg PO Q6H PRN PRN Reason: Headache/Pain Mild Scale (1-3) Last Admin: 11/16/23 05:13 Dose: 650 mg Al Hydroxide/Mg Hydroxide (Magnesium Hydrox/Alum Hydrox 30 Ml Oral.Susp) 30 ml PO Q6H PRN PRN Reason: Heartburn/Nausea Albuterol Sulfate (Albuterol Sulfate 90 Mcg 8 Gm Inhaler) 2 puff INHALE Q4H PRN PRN Reason: wheezing Last Admin: 11/15/23 14:02 Dose: 2 puff Cyanocobalamin (Cyanocobalamin (Vitamin B-12) 1,000 Mcg Tablet) 1,000 mcg PO DAILY [facility] Last Admin: 11/16/23 09:38 Dose: 1,000 mcg Loratadine (Loratadine 10 Mg Tablet) 10 mg PO DAILY [facility] Last Admin: 11/16/23 09:39 Dose: 10 mg Magnesium Hydroxide (Milk Of Magnesia 30 Ml Oral.Susp) 30 ml PO DAILY PRN PRN Reason: Constipation Nicotine (Nicotine 21 Mg Patch.Td24) 21 mg TRANSDERMA DAILY PRN PRN Reason: smoking cessation Nicotine Polacrilex (Nicotine Polacrilex 2 Mg Gum) 4 mg BUCCAL Q2H PRN PRN Reason: Nicotine Cravings Olanzapine (Olanzapine 2.5 Mg Tablet) 2.5 mg PO TID PRN PRN Reason: agitation Olanzapine (Olanzapine 2.5 Mg Tablet) 2.5 mg PO BEDTIME [facility] Last Admin: 11/15/23 20:15 Dose: Not Given Trazodone HCl (Trazodone Hcl 25 Mg Halftab) 25 mg PO BEDTIME MRX1 PRN PRN Reason: Insomnia Vitamin D (Cholecalciferol (Vitamin D3) 25 Mcg Tablet) 25 mcg PO DAILY [facility] Last Admin: 11/16/23 09:39 Dose: 25 mcg Zinc Acetate/Diphenhydramine (Diphenhydramine Hcl 2 % Cream 28 Gm Tube) 1 appl TOPICAL QID PRN; Protocol PRN Reason: Itching Last Admin: 11/11/23 02:56 Dose: 1 appl Allergies Allergies Allergy/AdvReac Type Severity Reaction Status Date / Time nut - unspecified Allergy Severe Anaphylaxis Verified 11/12/23 09:54 tree nut Allergy Severe Anaphylaxis Verified 11/12/23 09:53 gluten Allergy Unknown Verified 11/07/23 21:02 ibuprofen Allergy Unknown Verified 11/07/23 21:02 lactose Allergy Unknown Verified 11/07/23 21:02 lamotrigine Allergy Unknown Verified 11/07/23 21:02 Peanut (Legumes) Allergy Unknown Verified 11/07/23 21:02 Assessment & Plan Assessment & Plan (1) Bipolar disorder: Status: Acute Code(s): F31.9 - Bipolar disorder, unspecified (2) Alcohol use disorder in remission: Status: Acute Code(s): F10.91 - Alcohol use, unspecified, in remission Plan The patient is an elderly female, chronically homeless with a past history of mental illness who was transferred to this facility after she had medical problems and it was evident the patient was manic with dementia. Plan 1. Continue with same treatment. 2. Referred for placement. 3. Encourage compliance Reason for continued inpatient stay Substantial Risk for: inability to function, rapid decompensation and med/psych decompensation Time Spent With Patient Time: Total time managing care of this patient today __20__ minutes.
[2023-11-16] MEDS: Albuterol Sulfate 90 MCG 8 GM INHALER 2 PUFF INHALE (15:36)
[2023-11-16 15:37] VITALS: BP 132/65; PULSE 88; RESP 18; TEMP 36.7; O2SAT 97
[2023-11-16] MEDS: diphenhydrAMINE HCl 2 % Cream 28 GM TUBE 1 APPL TOPICAL (17:48)
[2023-11-16 20:33] VITALS: BP 132/63; PULSE 80; TEMP 36.5; O2SAT 100
[2023-11-17] MEDS: Acetaminophen 325 MG TABLET 650 MG PO ×2 (06:11→12:26)
[2023-11-17 08:29] VITALS: BP 168/99; PULSE 91; RESP 16; TEMP 36.8; O2SAT 97
[2023-11-17] MEDS: Cyanocobalamin (Vitamin B-12) 1,000 MCG TABLET 1000 MCG PO (10:19)
[2023-11-17] MEDS: Loratadine 10 MG TABLET PO (10:20)
[2023-11-17] MEDS: Cholecalciferol (Vitamin D3) 25 MCG TABLET PO (10:20)
--- NOTE | 2023-11-17 12:11 | PC.NURSE ---
Pt's blood pressure was 168/[address] Bernal was made aware as pt does not have any cardiac meds ordered. Rechecked pt's blood pressure and it went down to 146/87 without any interventions. made aware.
[2023-11-17 13:02] VITALS: BP 152/89; PULSE 105; TEMP 36.1
--- NOTE | 2023-11-17 13:07 | HO.PSYCHPN ---
Subjective Subjective Date of Service: 11/17/23 Reason For Visit: Bipolar disorder Subjective Notes: Conditional Voluntary Interim History: Nursing staff reported the patient had been pleasant, requesting BuSpar and Paxil. She slept 8 hours. The staff reported headaches at 03:00 o'clock and received some Tylenol with for improvement. The social work lecturer reported that [facility] will come today and assess her. On interview the patient reported that she had back pain and requested lidocaine patches. No changes in her mental status. Mental Status Exam Mental Status Exam Patient Appearance: Appropriate Patient Orientation: Person and Situation Level of Consciousness: Awake and Appropriate Patient Behavior: Guarded and Passive Mood Description: Withdrawn Affect Description: Constricted Patient Cognition Impaired: Yes Ability to Follow Directions: Good Speech Pattern: Clear Hallucinations: None Delusions: Not Present Thought Process: Distracted and Slowed Thinking Thought Content: positive for [place] and positive for Poverty of Content Judgement: Fair Diagnostics Vital Signs (24Hr): Vital Signs - 24 hr 11/16/23 15:37 11/16/23 20:33 11/17/23 08:29 Temperature 98.1 F 97.7 F 98.3 F Pulse Rate 88 80 91 Respiratory Rate 18 16 Blood Pressure 132/65 132/63 168/99 H Pulse Oximetry 97 100 97 Oxygen Delivery Method Room Air Room Air Room Air 11/17/23 13:02 Temperature 97.0 F Pulse Rate 105 H Respiratory Rate Blood Pressure 152/89 H Pulse Oximetry Oxygen Delivery Method Room Air BMI result Body Mass Index 25.2 Labs 11/08/23 08:20 Medications Medications Current Medications Acetaminophen (Acetaminophen 325 Mg Tablet) 650 mg PO Q6H PRN PRN Reason: Headache/Pain Mild Scale (1-3) Last Admin: 11/17/23 12:26 Dose: 650 mg Al Hydroxide/Mg Hydroxide (Magnesium Hydrox/Alum Hydrox 30 Ml Oral.Susp) 30 ml PO Q6H PRN PRN Reason: Heartburn/Nausea Albuterol Sulfate (Albuterol Sulfate 90 Mcg 8 Gm Inhaler) 2 puff INHALE Q4H PRN PRN Reason: wheezing Last Admin: 11/16/23 15:36 Dose: 2 puff Cyanocobalamin (Cyanocobalamin (Vitamin B-12) 1,000 Mcg Tablet) 1,000 mcg PO DAILY [facility] Last Admin: 11/17/23 10:19 Dose: 1,000 mcg Lidocaine (Lidocaine 4 % Patch Adh..Patch) 2 patch TRANSDERMA ONCE ONE; Protocol Stop: 11/17/23 13:06 Lidocaine (Lidocaine 4 % Patch Adh..Patch) 2 patch TRANSDERMA DAILY [facility]; Protocol Loratadine (Loratadine 10 Mg Tablet) 10 mg PO DAILY [facility] Last Admin: 11/17/23 10:20 Dose: 10 mg Magnesium Hydroxide (Milk Of Magnesia 30 Ml Oral.Susp) 30 ml PO DAILY PRN PRN Reason: Constipation Nicotine (Nicotine 21 Mg Patch.Td24) 21 mg TRANSDERMA DAILY PRN PRN Reason: smoking cessation Nicotine Polacrilex (Nicotine Polacrilex 2 Mg Gum) 4 mg BUCCAL Q2H PRN PRN Reason: Nicotine Cravings Olanzapine (Olanzapine 2.5 Mg Tablet) 2.5 mg PO TID PRN PRN Reason: agitation Olanzapine (Olanzapine 2.5 Mg Tablet) 2.5 mg PO BEDTIME [facility] Last Admin: 11/16/23 20:20 Dose: Not Given Trazodone HCl (Trazodone Hcl 25 Mg Halftab) 25 mg PO BEDTIME MRX1 PRN PRN Reason: Insomnia Vitamin D (Cholecalciferol (Vitamin D3) 25 Mcg Tablet) 25 mcg PO DAILY [facility] Last Admin: 11/17/23 10:20 Dose: 25 mcg Zinc Acetate/Diphenhydramine (Diphenhydramine Hcl 2 % Cream 28 Gm Tube) 1 appl TOPICAL QID PRN; Protocol PRN Reason: Itching Last Admin: 11/16/23 17:48 Dose: 1 appl Allergies Allergies Allergy/AdvReac Type Severity Reaction Status Date / Time nut - unspecified Allergy Severe Anaphylaxis Verified 11/12/23 09:54 tree nut Allergy Severe Anaphylaxis Verified 11/12/23 09:53 gluten Allergy Unknown Verified 11/07/23 21:02 ibuprofen Allergy Unknown Verified 11/07/23 21:02 lactose Allergy Unknown Verified 11/07/23 21:02 lamotrigine Allergy Unknown Verified 11/07/23 21:02 Peanut (Legumes) Allergy Unknown Verified 11/07/23 21:02 Assessment & Plan Assessment & Plan (1) Bipolar disorder: Status: Acute Code(s): F31.9 - Bipolar disorder, unspecified (2) Alcohol use disorder in remission: Status: Acute Code(s): F10.91 - Alcohol use, unspecified, in remission Plan The patient is an elderly female, chronically homeless with a past history of mental illness who was transferred to this facility after she had medical problems and it was evident the patient was manic with dementia. Plan 1. Continue with same treatment. 2. Referred for placement. 3. Encourage compliance 4. Lidocaine patch for pain Reason for continued inpatient stay Substantial Risk for: inability to function, rapid decompensation and med/psych decompensation Time Spent With Patient Time: Total time managing care of this patient today __20__ minutes.
[2023-11-17 13:08] VITALS: BMI 24.8
[2023-11-17] MEDS: Lidocaine 4 % Patch ADH..PATCH 2 PATCH TRANSDERMA (13:24)
[2023-11-17 20:00] VITALS: BP 123/65; PULSE 86; RESP 16; TEMP 36.6; O2SAT 99
[2023-11-18] MEDS: Acetaminophen 325 MG TABLET 650 MG PO ×3 (04:35→16:25)
[2023-11-18 09:10] VITALS: BP 146/78; PULSE 80; RESP 15; TEMP 36.9; O2SAT 100
[2023-11-18] MEDS: Cyanocobalamin (Vitamin B-12) 1,000 MCG TABLET 1000 MCG PO (09:11)
[2023-11-18] MEDS: Loratadine 10 MG TABLET PO (09:11)
[2023-11-18] MEDS: Cholecalciferol (Vitamin D3) 25 MCG TABLET PO (09:11)
[2023-11-18] MEDS: busPIRone HCl 5 MG TABLET PO ×3 (09:16→20:04)
--- NOTE | 2023-11-18 14:48 | P.PNPSI_ITS ---
Subjective Subjective Date of Service: 11/18/23 Reason For Visit: Bipolar disorder Subjective Notes: Conditional Voluntary Interim History: The nursing staff reported the patient had been compliant partially with medications, she was anxious and weepy at times but very cheerful at others. The drug abuse social worker reported that she was accepted at [facility] for next week. On interview the patient denies new symptoms, waiting for placement Mental Status Exam Mental Status Exam Patient Appearance: Well Grooomed and Appropriate Patient Orientation: Person and Situation Level of Consciousness: Awake and Appropriate Patient Behavior: Guarded and Passive Mood Description: Withdrawn Affect Description: Constricted Patient Cognition Impaired: Yes Ability to Follow Directions: Good Speech Pattern: Clear Hallucinations: None Delusions: Grandiose Thought Process: Racing and Distracted Thought Content: positive for [place] and positive for Poverty of Content Judgement: Fair Diagnostics Vital Signs (24Hr): Vital Signs - 24 hr 11/17/23 20:00 11/18/23 09:10 Temperature 97.9 F 98.5 F Pulse Rate 86 80 Respiratory Rate 16 15 Blood Pressure 123/65 146/78 H Pulse Oximetry 99 100 Oxygen Delivery Method Room Air Room Air BMI result Body Mass Index 24.8 Labs 11/08/23 08:20 Medications Medications Current Medications Acetaminophen (Acetaminophen 325 Mg Tablet) 650 mg PO Q6H PRN PRN Reason: Headache/Pain Mild Scale (1-3) Last Admin: 11/18/23 10:57 Dose: 650 mg Al Hydroxide/Mg Hydroxide (Magnesium Hydrox/Alum Hydrox 30 Ml Oral.Susp) 30 ml PO Q6H PRN PRN Reason: Heartburn/Nausea Albuterol Sulfate (Albuterol Sulfate 90 Mcg 8 Gm Inhaler) 2 puff INHALE Q4H PRN PRN Reason: wheezing Last Admin: 11/16/23 15:36 Dose: 2 puff Buspirone HCl (Buspirone Hcl 5 Mg Tablet) 5 mg PO TID [facility] Last Admin: 11/18/23 09:16 Dose: 5 mg Cyanocobalamin (Cyanocobalamin (Vitamin B-12) 1,000 Mcg Tablet) 1,000 mcg PO DAILY [facility] Last Admin: 11/18/23 09:11 Dose: 1,000 mcg Lidocaine (Lidocaine 4 % Patch Adh..Patch) 2 patch TRANSDERMA DAILY [facility]; Protocol Last Admin: 11/18/23 09:14 Dose: Not Given Loratadine (Loratadine 10 Mg Tablet) 10 mg PO DAILY [facility] Last Admin: 11/18/23 09:11 Dose: 10 mg Magnesium Hydroxide (Milk Of Magnesia 30 Ml Oral.Susp) 30 ml PO DAILY PRN PRN Reason: Constipation Nicotine (Nicotine 21 Mg Patch.Td24) 21 mg TRANSDERMA DAILY PRN PRN Reason: smoking cessation Nicotine Polacrilex (Nicotine Polacrilex 2 Mg Gum) 4 mg BUCCAL Q2H PRN PRN Reason: Nicotine Cravings Olanzapine (Olanzapine 2.5 Mg Tablet) 2.5 mg PO TID PRN PRN Reason: agitation Olanzapine (Olanzapine 2.5 Mg Tablet) 2.5 mg PO BEDTIME [facility] Last Admin: 11/17/23 20:25 Dose: Not Given Trazodone HCl (Trazodone Hcl 25 Mg Halftab) 25 mg PO BEDTIME MRX1 PRN PRN Reason: Insomnia Vitamin D (Cholecalciferol (Vitamin D3) 25 Mcg Tablet) 25 mcg PO DAILY [facility] Last Admin: 11/18/23 09:11 Dose: 25 mcg Zinc Acetate/Diphenhydramine (Diphenhydramine Hcl 2 % Cream 28 Gm Tube) 1 appl TOPICAL QID PRN; Protocol PRN Reason: Itching Last Admin: 11/16/23 17:48 Dose: 1 appl Allergies Allergies Allergy/AdvReac Type Severity Reaction Status Date / Time nut - unspecified Allergy Severe Anaphylaxis Verified 11/12/23 09:54 tree nut Allergy Severe Anaphylaxis Verified 11/12/23 09:53 gluten Allergy Unknown Verified 11/07/23 21:02 ibuprofen Allergy Unknown Verified 11/07/23 21:02 lactose Allergy Unknown Verified 11/07/23 21:02 lamotrigine Allergy Unknown Verified 11/07/23 21:02 Peanut (Legumes) Allergy Unknown Verified 11/07/23 21:02 Assessment & Plan Assessment & Plan (1) Bipolar disorder: Status: Acute Code(s): F31.9 - Bipolar disorder, unspecified (2) Alcohol use disorder in remission: Status: Acute Code(s): F10.91 - Alcohol use, unspecified, in remission Plan The patient is an elderly female, chronically homeless with a past history of mental illness who was transferred to this facility after she had medical problems and it was evident the patient was manic with dementia. Plan 1. Continue with same treatment. 2. Referred for placement. 3. Encourage compliance 4. Lidocaine patch for pain Reason for continued inpatient stay Substantial Risk for: inability to function, rapid decompensation and med/psych decompensation Time Spent With Patient Time: Total time managing care of this patient today __20__ minutes.
[2023-11-18 20:00] VITALS: BP 126/61; PULSE 72; RESP 16; TEMP 36.2; O2SAT 100
[2023-11-19] MEDS: Albuterol Sulfate 90 MCG 8 GM INHALER 2 PUFF INHALE ×2 (02:47→12:23)
[2023-11-19 04:30] VITALS: BP 176/94; PULSE 90; RESP 16; TEMP 35.6; O2SAT 97
--- NOTE | 2023-11-19 04:42 | PC.NURSE ---
events transpired at 314 approximately 30 minutes after receiving 2 puffs of albuterol from inhaler with spacer. at 246 pt presented to nursing station c/o of mils SOB and wheezing. pt requested to use her Ventolin inhaler. at 314 pt again presented to nurses station stating that she was having an anxiety attack and that her eucerin cream was causing her to have itching. pt is anxious and talking rapidly. dorsum and skin surfaces inspected. no hives or dermatological abnormalities noted. resp effort is regular unlabored. there are no signs of compromising airway or impending hemodynamic collapse. pt was assisted by staff to shower. under female staff supervision, pt indulged her self in a long hot shower. after shower- 1. pt anxiety level has tempered downward 2. pt is convinced that inhaler caused her difficulties tonight 3. she states that she feels fine now 4. she states that she does have a headache 5. vital signs taken 96.1 p 90 bpm rr 16 sao2 97% b/p 176/94 6. pt offered Benadryl cream but declines 7. tylenol 650 mg po for headache will recheck b/p 0530 and continue to monitor
[2023-11-19] MEDS: Acetaminophen 325 MG TABLET 650 MG PO ×3 (04:54→20:06)
[2023-11-19 05:00] VITALS: BP 150/68; PULSE 80; RESP 16; TEMP 36.1; O2SAT 99
--- NOTE | 2023-11-19 11:06 | P.PNPSI_ITS ---
Subjective Subjective Date of Service: 11/19/23 Reason For Visit: Bipolar disorder Subjective Notes: Conditional Voluntary Healthcare Proxy: No Guardianship: No Interim History: Patient seen intermittently agitated anxious and ruminating refusing olanzapine some periods of irritability agitation on the unit somatically preoccupied Medication Compliance: Intermittent Mental Status Exam Mental Status Exam Patient Appearance: Well Grooomed and Appropriate Patient Orientation: Person and Situation Level of Consciousness: Awake and Appropriate Patient Behavior: Appropriate Mood Description: Labile and Apprehensive Affect Description: Constricted Patient Cognition Impaired: Yes Ability to Follow Directions: Good Speech Pattern: Clear Hallucinations: None Delusions: Grandiose Thought Process: Racing and Distracted Thought Content: positive for [place] Depressive Symptoms: Increased Anxiety and Increased Irritability Judgement: Fair Judgement and Insight: Question regarding insight into whether she has a cycling mood disorder does accept that she has a history of depression with anxiety family history of bipolar disorder Diagnostics Vital Signs (24Hr): Vital Signs - 24 hr 11/18/23 20:00 11/19/23 04:30 11/19/23 05:00 Temperature 97.2 F 96.1 F L 97 F Pulse Rate 72 90 80 Respiratory Rate 16 16 16 Blood Pressure 126/61 176/94 H 150/68 H Pulse Oximetry 100 97 99 Oxygen Delivery Method Room Air Room Air Room Air BMI result Body Mass Index 24.8 Labs 11/08/23 08:20 Medications Medications Current Medications Acetaminophen (Acetaminophen 325 Mg Tablet) 650 mg PO Q6H PRN PRN Reason: Headache/Pain Mild Scale (1-3) Last Admin: 11/19/23 04:54 Dose: 650 mg Al Hydroxide/Mg Hydroxide (Magnesium Hydrox/Alum Hydrox 30 Ml Oral.Susp) 30 ml PO Q6H PRN PRN Reason: Heartburn/Nausea Albuterol Sulfate (Albuterol Sulfate 90 Mcg 8 Gm Inhaler) 2 puff INHALE Q4H PRN PRN Reason: wheezing Last Admin: 11/19/23 02:47 Dose: 2 puff Buspirone HCl (Buspirone Hcl 5 Mg Tablet) 5 mg PO TID [facility] Last Admin: 11/18/23 20:04 Dose: 5 mg Cyanocobalamin (Cyanocobalamin (Vitamin B-12) 1,000 Mcg Tablet) 1,000 mcg PO DAILY [facility] Last Admin: 11/18/23 09:11 Dose: 1,000 mcg Lidocaine (Lidocaine 4 % Patch Adh..Patch) 2 patch TRANSDERMA DAILY [facility]; Protocol Last Admin: 11/18/23 09:14 Dose: Not Given Loratadine (Loratadine 10 Mg Tablet) 10 mg PO DAILY [facility] Last Admin: 11/18/23 09:11 Dose: 10 mg Magnesium Hydroxide (Milk Of Magnesia 30 Ml Oral.Susp) 30 ml PO DAILY PRN PRN Reason: Constipation Nicotine (Nicotine 21 Mg Patch.Td24) 21 mg TRANSDERMA DAILY PRN PRN Reason: smoking cessation Nicotine Polacrilex (Nicotine Polacrilex 2 Mg Gum) 4 mg BUCCAL Q2H PRN PRN Reason: Nicotine Cravings Olanzapine (Olanzapine 2.5 Mg Tablet) 2.5 mg PO TID PRN PRN Reason: agitation Olanzapine (Olanzapine 2.5 Mg Tablet) 2.5 mg PO BEDTIME [facility] Last Admin: 11/18/23 20:05 Dose: Not Given Trazodone HCl (Trazodone Hcl 25 Mg Halftab) 25 mg PO BEDTIME MRX1 PRN PRN Reason: Insomnia Vitamin D (Cholecalciferol (Vitamin D3) 25 Mcg Tablet) 25 mcg PO DAILY [facility] Last Admin: 11/18/23 09:11 Dose: 25 mcg Zinc Acetate/Diphenhydramine (Diphenhydramine Hcl 2 % Cream 28 Gm Tube) 1 appl TOPICAL QID PRN; Protocol PRN Reason: Itching Last Admin: 11/16/23 17:48 Dose: 1 appl Allergies Allergies Allergy/AdvReac Type Severity Reaction Status Date / Time nut - unspecified Allergy Severe Anaphylaxis Verified 11/12/23 09:54 tree nut Allergy Severe Anaphylaxis Verified 11/12/23 09:53 gluten Allergy Unknown Verified 11/07/23 21:02 ibuprofen Allergy Unknown Verified 11/07/23 21:02 lactose Allergy Unknown Verified 11/07/23 21:02 lamotrigine Allergy Unknown Verified 11/07/23 21:02 Peanut (Legumes) Allergy Unknown Verified 11/07/23 21:02 Assessment & Plan Assessment & Plan (1) Bipolar disorder: Status: Acute Code(s): F31.9 - Bipolar disorder, unspecified (2) Alcohol use disorder in remission: Status: Acute Code(s): F10.91 - Alcohol use, unspecified, in remission (3) Low back pain: Status: Acute Code(s): M54.50 - Low back pain, unspecified Plan Patient adamantly denies manic symptoms by history some periods of agitation disorganization severe anxiety she states she was stable on Paxil for many years this was recently discontinued reportedly she is on BuSpar Patient was well oriented with a clear sensorium very clear in detail oriented Consider Depakote patient might be bipolar 2 might have done well with the combination mood stabilizer an SSRI Patient educated on: diagnosis and medication risk/benefits Informed Consent: further education needed Reason for continued inpatient stay Substantial Risk for: inability to function and rapid decompensation Time Spent With Patient Time: Total time managing care of this patient today _25___ minutes.
[2023-11-19 12:19] VITALS: BP 153/84; PULSE 98; RESP 18; TEMP 36.2; O2SAT 99
[2023-11-19] MEDS: Cyanocobalamin (Vitamin B-12) 1,000 MCG TABLET 1000 MCG PO (12:19)
[2023-11-19] MEDS: Cholecalciferol (Vitamin D3) 25 MCG TABLET PO (12:19)
[2023-11-19] MEDS: Loratadine 10 MG TABLET PO (12:20)
[2023-11-19] MEDS: busPIRone HCl 5 MG TABLET PO (12:20)
--- NOTE | 2023-11-19 14:47 | PC.NURSE ---
Radha reported she gets frequent headaches and Tylenol is only partially effective and is concerned as headaches are recurrent. Denied any associated symptoms such as dizziness or double vision. Dr. Moreau notified.
[2023-11-19] MEDS: busPIRone HCl 10 MG TABLET PO ×2 (15:28→20:06)
[2023-11-19] MEDS: Calcium Oyster Shell Elemental 500 MG TABLET PO (15:28)
[2023-11-19] MEDS: Multivitamin TABLET 1 TAB PO (15:28)
[2023-11-19 20:00] VITALS: BP 156/84; PULSE 86; RESP 16; TEMP 36.6; O2SAT 99
[2023-11-20 08:55] VITALS: BP 137/87; PULSE 86; RESP 17; TEMP 36.2; O2SAT 100
[2023-11-20] MEDS: Cholecalciferol (Vitamin D3) 25 MCG TABLET PO (08:56)
[2023-11-20] MEDS: Loratadine 10 MG TABLET PO (08:57)
[2023-11-20] MEDS: busPIRone HCl 10 MG TABLET PO ×3 (08:57→20:49)
[2023-11-20] MEDS: Calcium Oyster Shell Elemental 500 MG TABLET PO (08:57)
[2023-11-20] MEDS: Cyanocobalamin (Vitamin B-12) 1,000 MCG TABLET 1000 MCG PO (08:57)
[2023-11-20] MEDS: Multivitamin TABLET 1 TAB PO (08:57)
[2023-11-20] MEDS: Albuterol Sulfate 90 MCG 8 GM INHALER 2 PUFF INHALE (09:08)
[2023-11-20] MEDS: diphenhydrAMINE HCl 2 % Cream 28 GM TUBE 1 APPL TOPICAL ×2 (09:09→15:15)
--- NOTE | 2023-11-20 09:56 | P.PNPSI_ITS ---
Subjective Subjective Date of Service: 11/20/23 Reason For Visit: Bipolar disorder Subjective Notes: Conditional Voluntary Interim History: Patient seen psychiatric follow-up. Patient is somewhat disorganized pressured states she has been diagnosed with ADD in the past. Patient is still quite insistent that she did best on Paxil for many years. Patient not euphoric mildly pressured she is aware that she has been accepted in an assisted living setting Mental Status Exam Mental Status Exam Patient Appearance: Well Grooomed and Appropriate Patient Orientation: Person and Situation Level of Consciousness: Awake and Appropriate Patient Behavior: Appropriate Mood Description: Apprehensive Affect Description: Expansive (mildy) Patient Cognition Impaired: Yes Ability to Follow Directions: Good Speech Pattern: Clear Hallucinations: None Delusions: Grandiose Thought Process: Racing and Distracted Thought Content: positive for [place] Depressive Symptoms: Increased Anxiety and Increased Irritability Judgement: Fair Judgement and Insight: Question regarding insight into whether she has a cycling mood disorder does accept that she has a history of depression with anxiety family history of bipolar disorder Diagnostics Vital Signs (24Hr): Vital Signs - 24 hr 11/19/23 12:19 11/19/23 20:00 11/20/23 08:55 Temperature 97.1 F 98 F 97.2 F Pulse Rate 98 86 86 Respiratory Rate 18 16 17 Blood Pressure 153/84 H 156/84 H 137/87 Pulse Oximetry 99 99 100 Oxygen Delivery Method Room Air Room Air BMI result Body Mass Index 24.8 Labs 11/08/23 08:20 Medications Medications Current Medications Acetaminophen (Acetaminophen 325 Mg Tablet) 650 mg PO Q6H PRN PRN Reason: Headache/Pain Mild Scale (1-3) Last Admin: 11/19/23 20:06 Dose: 650 mg Al Hydroxide/Mg Hydroxide (Magnesium Hydrox/Alum Hydrox 30 Ml Oral.Susp) 30 ml PO Q6H PRN PRN Reason: Heartburn/Nausea Albuterol Sulfate (Albuterol Sulfate 90 Mcg 8 Gm Inhaler) 2 puff INHALE Q4H PRN PRN Reason: wheezing Last Admin: 11/20/23 09:08 Dose: 2 puff Buspirone HCl (Buspirone Hcl 10 Mg Tablet) 10 mg PO TID [facility] Last Admin: 11/20/23 08:57 Dose: 10 mg Calcium Carbonate (Calcium Oyster Shell Elemental 500 Mg Tablet) 500 mg PO DAILY [facility] Last Admin: 11/20/23 08:57 Dose: 500 mg Cyanocobalamin (Cyanocobalamin (Vitamin B-12) 1,000 Mcg Tablet) 1,000 mcg PO DAILY [facility] Last Admin: 11/20/23 08:57 Dose: 1,000 mcg Lidocaine (Lidocaine 4 % Patch Adh..Patch) 2 patch TRANSDERMA DAILY [facility]; Protocol Last Admin: 11/20/23 09:02 Dose: Not Given Loratadine (Loratadine 10 Mg Tablet) 10 mg PO DAILY [facility] Last Admin: 11/20/23 08:57 Dose: 10 mg Magnesium Hydroxide (Milk Of Magnesia 30 Ml Oral.Susp) 30 ml PO DAILY PRN PRN Reason: Constipation Multivitamins/Vitamin C (Multivitamin Tablet) 1 tab PO DAILY [facility] Last Admin: 11/20/23 08:57 Dose: 1 tab Nicotine (Nicotine 21 Mg Patch.Td24) 21 mg TRANSDERMA DAILY PRN PRN Reason: smoking cessation Nicotine Polacrilex (Nicotine Polacrilex 2 Mg Gum) 4 mg BUCCAL Q2H PRN PRN Reason: Nicotine Cravings Olanzapine (Olanzapine 2.5 Mg Tablet) 2.5 mg PO TID PRN PRN Reason: agitation Olanzapine (Olanzapine 2.5 Mg Tablet) 2.5 mg PO BEDTIME [facility] Last Admin: 11/19/23 21:49 Dose: Not Given Trazodone HCl (Trazodone Hcl 25 Mg Halftab) 25 mg PO BEDTIME MRX1 PRN PRN Reason: Insomnia Vitamin D (Cholecalciferol (Vitamin D3) 25 Mcg Tablet) 25 mcg PO DAILY [facility] Last Admin: 11/20/23 08:56 Dose: 25 mcg Zinc Acetate/Diphenhydramine (Diphenhydramine Hcl 2 % Cream 28 Gm Tube) 1 appl TOPICAL QID PRN; Protocol PRN Reason: Itching Last Admin: 11/20/23 09:09 Dose: 1 appl Allergies Allergies Allergy/AdvReac Type Severity Reaction Status Date / Time nut - unspecified Allergy Severe Anaphylaxis Verified 11/12/23 09:54 tree nut Allergy Severe Anaphylaxis Verified 11/12/23 09:53 gluten Allergy Unknown Verified 11/07/23 21:02 ibuprofen Allergy Unknown Verified 11/07/23 21:02 lactose Allergy Unknown Verified 11/07/23 21:02 lamotrigine Allergy Unknown Verified 11/07/23 21:02 Peanut (Legumes) Allergy Unknown Verified 11/07/23 21:02 Assessment & Plan Assessment & Plan (1) Bipolar disorder: Status: Acute Code(s): F31.9 - Bipolar disorder, unspecified (2) Alcohol use disorder in remission: Status: Acute Code(s): F10.91 - Alcohol use, unspecified, in remission (3) Low back pain: Status: Acute Code(s): M54.50 - Low back pain, unspecified Plan Patient adamantly denies manic symptoms by history some periods of agitation disorganization severe anxiety she states she was stable on Paxil for many years this was recently discontinued reportedly she is on BuSpar Patient was well oriented with a clear sensorium very clear in detail oriented Consider Depakote patient might be bipolar 2 might have done well with the combination mood stabilizer an SSRI Patient will need psychiatric follow-up somewhat anxious and circumstantial question hypomania. Informed Consent: further education needed Reason for continued inpatient stay Substantial Risk for: inability to function and rapid decompensation Time Spent With Patient Time: Total time managing care of this patient today _25___ minutes.
[2023-11-20] MEDS: Acetaminophen 325 MG TABLET 650 MG PO ×2 (11:48→20:49)
[2023-11-20 20:00] VITALS: BP 143/66; PULSE 89; RESP 16; TEMP 36.8; O2SAT 99
[2023-11-21] MEDS: diphenhydrAMINE HCl 2 % Cream 28 GM TUBE 1 APPL TOPICAL (03:54)
[2023-11-21 08:39] VITALS: BP 132/66; PULSE 80; RESP 20; TEMP 36.1; O2SAT 100
[2023-11-21] MEDS: Cholecalciferol (Vitamin D3) 25 MCG TABLET PO (08:41)
[2023-11-21] MEDS: Multivitamin TABLET 1 TAB PO (08:42)
[2023-11-21] MEDS: Calcium Oyster Shell Elemental 500 MG TABLET PO (08:42)
[2023-11-21] MEDS: Cyanocobalamin (Vitamin B-12) 1,000 MCG TABLET 1000 MCG PO (08:42)
[2023-11-21] MEDS: busPIRone HCl 10 MG TABLET PO ×3 (08:43→20:52)
[2023-11-21] MEDS: Loratadine 10 MG TABLET PO (08:43)
[2023-11-21] MEDS: Acetaminophen 325 MG TABLET 650 MG PO ×2 (09:45→16:09)
--- NOTE | 2023-11-21 09:55 | HO.PSYCHPN ---
Subjective Subjective Date of Service: 11/21/23 Reason For Visit: Bipolar disorder Subjective Notes: Conditional Voluntary Interim History: The nursing staff reported the patient had been hyperverbal, with manic symptoms requesting Paxil. She also complains of somatic complaints, she reported that was NC used after using the albuterol. She slept 6 hours. On interview she demanded the start of Paxil I told her that it could be restarted as an outpatient and at this moment since she is not taking mood stabilizers it could worsen her overall condition. She has no insight into her condition. Mental Status Exam Mental Status Exam Patient Appearance: Appropriate Patient Orientation: Person and Situation Level of Consciousness: Awake and Appropriate Patient Behavior: Cooperative Mood Description: Calm Affect Description: Labile Ability to Follow Directions: Good Speech Pattern: Clear Hallucinations: None Delusions: Not Present Thought Process: Distracted and Slowed Thinking Thought Content: positive for [place] and positive for Poverty of Content Judgement: Poor Diagnostics Vital Signs (24Hr): Vital Signs - 24 hr 11/20/23 20:00 11/21/23 08:39 Temperature 98.2 F 97.0 F Pulse Rate 89 80 Respiratory Rate 16 20 Blood Pressure 143/66 H 132/66 Pulse Oximetry 99 100 Oxygen Delivery Method Room Air Room Air BMI result Body Mass Index 24.8 Labs 11/08/23 08:20 Medications Medications Current Medications Acetaminophen (Acetaminophen 325 Mg Tablet) 650 mg PO Q6H PRN PRN Reason: Headache/Pain Mild Scale (1-3) Last Admin: 11/21/23 09:45 Dose: 650 mg Al Hydroxide/Mg Hydroxide (Magnesium Hydrox/Alum Hydrox 30 Ml Oral.Susp) 30 ml PO Q6H PRN PRN Reason: Heartburn/Nausea Albuterol Sulfate (Albuterol Sulfate 90 Mcg 8 Gm Inhaler) 2 puff INHALE Q4H PRN PRN Reason: wheezing Last Admin: 11/20/23 09:08 Dose: 2 puff Buspirone HCl (Buspirone Hcl 10 Mg Tablet) 10 mg PO TID [facility] Last Admin: 11/21/23 08:43 Dose: 10 mg Calcium Carbonate (Calcium Oyster Shell Elemental 500 Mg Tablet) 500 mg PO DAILY [facility] Last Admin: 11/21/23 08:42 Dose: 500 mg Cyanocobalamin (Cyanocobalamin (Vitamin B-12) 1,000 Mcg Tablet) 1,000 mcg PO DAILY [facility] Last Admin: 11/21/23 08:42 Dose: 1,000 mcg Lidocaine (Lidocaine 4 % Patch Adh..Patch) 2 patch TRANSDERMA DAILY [facility]; Protocol Last Admin: 11/21/23 08:44 Dose: Not Given Loratadine (Loratadine 10 Mg Tablet) 10 mg PO DAILY [facility] Last Admin: 11/21/23 08:43 Dose: 10 mg Magnesium Hydroxide (Milk Of Magnesia 30 Ml Oral.Susp) 30 ml PO DAILY PRN PRN Reason: Constipation Multivitamins/Vitamin C (Multivitamin Tablet) 1 tab PO DAILY [facility] Last Admin: 11/21/23 08:42 Dose: 1 tab Nicotine (Nicotine 21 Mg Patch.Td24) 21 mg TRANSDERMA DAILY PRN PRN Reason: smoking cessation Nicotine Polacrilex (Nicotine Polacrilex 2 Mg Gum) 4 mg BUCCAL Q2H PRN PRN Reason: Nicotine Cravings Olanzapine (Olanzapine 2.5 Mg Tablet) 2.5 mg PO TID PRN PRN Reason: agitation Olanzapine (Olanzapine 2.5 Mg Tablet) 2.5 mg PO BEDTIME [facility] Last Admin: 11/20/23 20:51 Dose: Not Given Trazodone HCl (Trazodone Hcl 25 Mg Halftab) 25 mg PO BEDTIME MRX1 PRN PRN Reason: Insomnia Vitamin D (Cholecalciferol (Vitamin D3) 25 Mcg Tablet) 25 mcg PO DAILY [facility] Last Admin: 11/21/23 08:41 Dose: 25 mcg Zinc Acetate/Diphenhydramine (Diphenhydramine Hcl 2 % Cream 28 Gm Tube) 1 appl TOPICAL QID PRN; Protocol PRN Reason: Itching Last Admin: 11/21/23 03:54 Dose: 1 appl Allergies Allergies Allergy/AdvReac Type Severity Reaction Status Date / Time nut - unspecified Allergy Severe Anaphylaxis Verified 11/12/23 09:54 tree nut Allergy Severe Anaphylaxis Verified 11/12/23 09:53 gluten Allergy Unknown Verified 11/07/23 21:02 ibuprofen Allergy Unknown Verified 11/07/23 21:02 lactose Allergy Unknown Verified 11/07/23 21:02 lamotrigine Allergy Unknown Verified 11/07/23 21:02 Peanut (Legumes) Allergy Unknown Verified 11/07/23 21:02 Assessment & Plan Assessment & Plan (1) Bipolar disorder: Status: Acute Code(s): F31.9 - Bipolar disorder, unspecified (2) Alcohol use disorder in remission: Status: Acute Code(s): F10.91 - Alcohol use, unspecified, in remission (3) Low back pain: Status: Acute Code(s): M54.50 - Low back pain, unspecified Plan Patient adamantly denies manic symptoms by history some periods of agitation disorganization severe anxiety she states she was stable on Paxil for many years this was recently discontinued reportedly she is on BuSpar Patient was well oriented with a clear sensorium very clear in detail oriented Consider Depakote patient might be bipolar 2 might have done well with the combination mood stabilizer an SSRI Patient will need psychiatric follow-up somewhat anxious and circumstantial question hypomania. Plan 1. Continue with same treatment. We are encouraging compliance but she does not have insight into her condition 2. The case management social worker reported that most likely she will be discharged next Tuesday. Reason for continued inpatient stay Substantial Risk for: inability to function, rapid decompensation and med/psych decompensation Time Spent With Patient Time: Total time managing care of this patient today _20___ minutes.
[2023-11-21] MEDS: Albuterol Sulfate 90 MCG 8 GM INHALER 2 PUFF INHALE ×2 (10:42→17:24)
[2023-11-21 20:00] VITALS: BP 122/58; PULSE 80; RESP 18; TEMP 36.1; O2SAT 97
[2023-11-22] MEDS: diphenhydrAMINE HCl 2 % Cream 28 GM TUBE 1 APPL TOPICAL ×2 (06:26→22:52)
[2023-11-22 08:58] VITALS: BP 149/66; PULSE 95; RESP 16; TEMP 36.5; O2SAT 100
[2023-11-22] MEDS: Cholecalciferol (Vitamin D3) 25 MCG TABLET PO (08:59)
[2023-11-22] MEDS: Loratadine 10 MG TABLET PO (09:00)
[2023-11-22] MEDS: Calcium Oyster Shell Elemental 500 MG TABLET PO (09:00)
[2023-11-22] MEDS: Cyanocobalamin (Vitamin B-12) 1,000 MCG TABLET 1000 MCG PO (09:01)
[2023-11-22] MEDS: busPIRone HCl 10 MG TABLET PO ×3 (09:01→20:07)
[2023-11-22] MEDS: Multivitamin TABLET 1 TAB PO (09:01)
[2023-11-22] MEDS: Acetaminophen 325 MG TABLET 650 MG PO ×2 (09:09→20:53)
--- NOTE | 2023-11-22 17:05 | P.PNPSI_ITS ---
Subjective Subjective Date of Service: 11/22/23 Reason For Visit: Bipolar disorder Subjective Notes: Conditional Voluntary Interim History: The nursing staff reported the patient had been requesting Paxil even though that she is manic. She slept well. The social work specialist reported that she had been accepted at [facility] and most likely she will be transferred later this week or early next week. On interview the patient denies new symptoms pleasant cooperative. She denies having bipolar disorder but she is stable at this point. Mental Status Exam Mental Status Exam Patient Appearance: Appropriate Patient Orientation: Person and Situation Level of Consciousness: Awake and Appropriate Patient Behavior: Guarded and Passive Mood Description: Withdrawn and Constricted Affect Description: Calm Patient Cognition Impaired: Yes Ability to Follow Directions: Good Speech Pattern: Clear Hallucinations: None Delusions: Not Present Thought Process: Distracted and Slowed Thinking Thought Content: positive for [place] and positive for Poverty of Content Judgement: Fair Diagnostics Vital Signs (24Hr): Vital Signs - 24 hr 11/21/23 20:00 11/22/23 08:58 Temperature 96.9 F 97.7 F Pulse Rate 80 95 Respiratory Rate 18 16 Blood Pressure 122/58 L 149/66 H Pulse Oximetry 97 100 Oxygen Delivery Method Room Air Room Air BMI result Body Mass Index 24.8 Labs 11/08/23 08:20 Medications Medications Current Medications Acetaminophen (Acetaminophen 325 Mg Tablet) 650 mg PO Q6H PRN PRN Reason: Headache/Pain Mild Scale (1-3) Last Admin: 11/22/23 09:09 Dose: 650 mg Al Hydroxide/Mg Hydroxide (Magnesium Hydrox/Alum Hydrox 30 Ml Oral.Susp) 30 ml PO Q6H PRN PRN Reason: Heartburn/Nausea Albuterol Sulfate (Albuterol Sulfate 90 Mcg 8 Gm Inhaler) 2 puff INHALE Q4H PRN PRN Reason: wheezing Last Admin: 11/21/23 17:24 Dose: 2 puff Buspirone HCl (Buspirone Hcl 10 Mg Tablet) 10 mg PO TID [facility] Last Admin: 11/22/23 14:41 Dose: 10 mg Calcium Carbonate (Calcium Oyster Shell Elemental 500 Mg Tablet) 500 mg PO DAILY [facility] Last Admin: 11/22/23 09:00 Dose: 500 mg Cyanocobalamin (Cyanocobalamin (Vitamin B-12) 1,000 Mcg Tablet) 1,000 mcg PO DAILY [facility] Last Admin: 11/22/23 09:01 Dose: 1,000 mcg Lidocaine (Lidocaine 4 % Patch Adh..Patch) 2 patch TRANSDERMA DAILY [facility]; Protocol Last Admin: 11/22/23 11:35 Dose: Not Given Loratadine (Loratadine 10 Mg Tablet) 10 mg PO DAILY [facility] Last Admin: 11/22/23 09:00 Dose: 10 mg Magnesium Hydroxide (Milk Of Magnesia 30 Ml Oral.Susp) 30 ml PO DAILY PRN PRN Reason: Constipation Multivitamins/Vitamin C (Multivitamin Tablet) 1 tab PO DAILY [facility] Last Admin: 11/22/23 09:01 Dose: 1 tab Nicotine (Nicotine 21 Mg Patch.Td24) 21 mg TRANSDERMA DAILY PRN PRN Reason: smoking cessation Nicotine Polacrilex (Nicotine Polacrilex 2 Mg Gum) 4 mg BUCCAL Q2H PRN PRN Reason: Nicotine Cravings Olanzapine (Olanzapine 2.5 Mg Tablet) 2.5 mg PO TID PRN PRN Reason: agitation Olanzapine (Olanzapine 2.5 Mg Tablet) 2.5 mg PO BEDTIME [facility] Last Admin: 11/21/23 20:54 Dose: Not Given Trazodone HCl (Trazodone Hcl 25 Mg Halftab) 25 mg PO BEDTIME MRX1 PRN PRN Reason: Insomnia Vitamin D (Cholecalciferol (Vitamin D3) 25 Mcg Tablet) 25 mcg PO DAILY [facility] Last Admin: 11/22/23 08:59 Dose: 25 mcg Zinc Acetate/Diphenhydramine (Diphenhydramine Hcl 2 % Cream 28 Gm Tube) 1 appl TOPICAL QID PRN; Protocol PRN Reason: Itching Last Admin: 11/22/23 06:26 Dose: 1 appl Allergies Allergies Allergy/AdvReac Type Severity Reaction Status Date / Time nut - unspecified Allergy Severe Anaphylaxis Verified 11/12/23 09:54 tree nut Allergy Severe Anaphylaxis Verified 11/12/23 09:53 gluten Allergy Unknown Verified 11/07/23 21:02 ibuprofen Allergy Unknown Verified 11/07/23 21:02 lactose Allergy Unknown Verified 11/07/23 21:02 lamotrigine Allergy Unknown Verified 11/07/23 21:02 Peanut (Legumes) Allergy Unknown Verified 11/07/23 21:02 Assessment & Plan Assessment & Plan (1) Bipolar disorder: Status: Acute Code(s): F31.9 - Bipolar disorder, unspecified (2) Alcohol use disorder in remission: Status: Acute Code(s): F10.91 - Alcohol use, unspecified, in remission (3) Low back pain: Status: Acute Code(s): M54.50 - Low back pain, unspecified Plan Patient adamantly denies manic symptoms by history some periods of agitation disorganization severe anxiety she states she was stable on Paxil for many years this was recently discontinued reportedly she is on BuSpar Patient was well oriented with a clear sensorium very clear in detail oriented Consider Depakote patient might be bipolar 2 might have done well with the combination mood stabilizer an SSRI Patient will need psychiatric follow-up somewhat anxious and circumstantial question hypomania. Plan 1. Continue with same treatment. We are encouraging compliance but she does not have insight into her condition 2. The social work specialist reported that most likely s at the end of the week Reason for continued inpatient stay Substantial Risk for: inability to function, rapid decompensation and med/psych decompensation Time Spent With Patient Time: Total time managing care of this patient today __20__ minutes.
[2023-11-22] MEDS: Lidocaine 4 % Patch ADH..PATCH 2 PATCH TRANSDERMA (17:36)
[2023-11-22 20:00] VITALS: BP 150/82; PULSE 83; RESP 18; TEMP 36.1; O2SAT 98
[2023-11-22] MEDS: Albuterol Sulfate 90 MCG 8 GM INHALER 2 PUFF INHALE (21:26)
[2023-11-23] MEDS: diphenhydrAMINE HCl 2 % Cream 28 GM TUBE 1 APPL TOPICAL ×2 (05:33→15:55)
[2023-11-23 08:00] VITALS: BP 161/89; PULSE 82; RESP 18; TEMP 36.4; O2SAT 99
[2023-11-23] MEDS: Albuterol Sulfate 90 MCG 8 GM INHALER 2 PUFF INHALE ×2 (08:31→13:47)
[2023-11-23] MEDS: Acetaminophen 325 MG TABLET 650 MG PO ×3 (08:31→21:37)
[2023-11-23] MEDS: Loratadine 10 MG TABLET PO (08:33)
[2023-11-23] MEDS: Calcium Oyster Shell Elemental 500 MG TABLET PO (08:33)
[2023-11-23] MEDS: Cyanocobalamin (Vitamin B-12) 1,000 MCG TABLET 1000 MCG PO (08:33)
[2023-11-23] MEDS: Cholecalciferol (Vitamin D3) 25 MCG TABLET PO (08:33)
[2023-11-23] MEDS: Multivitamin TABLET 1 TAB PO (08:33)
[2023-11-23] MEDS: busPIRone HCl 10 MG TABLET PO ×4 (08:33→20:26)
--- NOTE | 2023-11-23 16:33 | P.PNPSI_ITS ---
Subjective Subjective Date of Service: 11/23/23 Reason For Visit: Bipolar disorder Subjective Notes: Conditional Voluntary Interim History: The nursing staff reported the patient has refused her Zyprexa, we filed the MOLST today. On interview the patient denies new symptoms, waiting for placement. Mental Status Exam Mental Status Exam Patient Appearance: Well Grooomed and Appropriate Patient Orientation: Person and Situation Level of Consciousness: Awake and Appropriate Patient Behavior: Guarded and Passive Mood Description: Withdrawn Affect Description: Constricted Patient Cognition Impaired: Yes Ability to Follow Directions: Good Speech Pattern: Clear Hallucinations: None Delusions: Not Present Thought Process: Distracted and Slowed Thinking Thought Content: positive for [place] and positive for Poverty of Content Judgement: Fair Diagnostics Vital Signs (24Hr): Vital Signs - 24 hr 11/22/23 20:00 11/23/23 08:00 Temperature 96.9 F 97.6 F Pulse Rate 83 82 Respiratory Rate 18 18 Blood Pressure 150/82 H 161/89 H Pulse Oximetry 98 99 Oxygen Delivery Method Room Air Room Air BMI result Body Mass Index 24.8 Labs 11/08/23 08:20 Medications Medications Current Medications Acetaminophen (Acetaminophen 325 Mg Tablet) 650 mg PO Q6H PRN PRN Reason: Headache/Pain Mild Scale (1-3) Last Admin: 11/23/23 15:31 Dose: 650 mg Al Hydroxide/Mg Hydroxide (Magnesium Hydrox/Alum Hydrox 30 Ml Oral.Susp) 30 ml PO Q6H PRN PRN Reason: Heartburn/Nausea Albuterol Sulfate (Albuterol Sulfate 90 Mcg 8 Gm Inhaler) 2 puff INHALE Q4H PRN PRN Reason: wheezing Last Admin: 11/23/23 13:47 Dose: 2 puff Buspirone HCl (Buspirone Hcl 10 Mg Tablet) 10 mg PO TID [facility] Last Admin: 11/23/23 15:32 Dose: 10 mg Buspirone HCl (Buspirone Hcl 10 Mg Tablet) 10 mg PO TID PRN PRN Reason: Anxiety Last Admin: 11/23/23 09:30 Dose: 10 mg Calcium Carbonate (Calcium Oyster Shell Elemental 500 Mg Tablet) 500 mg PO DAILY [facility] Last Admin: 11/23/23 08:33 Dose: 500 mg Cyanocobalamin (Cyanocobalamin (Vitamin B-12) 1,000 Mcg Tablet) 1,000 mcg PO DAILY [facility] Last Admin: 11/23/23 08:33 Dose: 1,000 mcg Lidocaine (Lidocaine 4 % Patch Adh..Patch) 2 patch TRANSDERMA DAILY [facility]; Protocol Last Admin: 11/23/23 08:33 Dose: Not Given Loratadine (Loratadine 10 Mg Tablet) 10 mg PO DAILY [facility] Last Admin: 11/23/23 08:33 Dose: 10 mg Magnesium Hydroxide (Milk Of Magnesia 30 Ml Oral.Susp) 30 ml PO DAILY PRN PRN Reason: Constipation Multivitamins/Vitamin C (Multivitamin Tablet) 1 tab PO DAILY [facility] Last Admin: 11/23/23 08:33 Dose: 1 tab Nicotine (Nicotine 21 Mg Patch.Td24) 21 mg TRANSDERMA DAILY PRN PRN Reason: smoking cessation Nicotine Polacrilex (Nicotine Polacrilex 2 Mg Gum) 4 mg BUCCAL Q2H PRN PRN Reason: Nicotine Cravings Olanzapine (Olanzapine 2.5 Mg Tablet) 2.5 mg PO TID PRN PRN Reason: agitation Olanzapine (Olanzapine 2.5 Mg Tablet) 2.5 mg PO BEDTIME [facility] Last Admin: 11/22/23 20:09 Dose: Not Given Trazodone HCl (Trazodone Hcl 25 Mg Halftab) 25 mg PO BEDTIME MRX1 PRN PRN Reason: Insomnia Vitamin D (Cholecalciferol (Vitamin D3) 25 Mcg Tablet) 25 mcg PO DAILY [facility] Last Admin: 11/23/23 08:33 Dose: 25 mcg Zinc Acetate/Diphenhydramine (Diphenhydramine Hcl 2 % Cream 28 Gm Tube) 1 appl TOPICAL QID PRN; Protocol PRN Reason: Itching Last Admin: 11/23/23 15:55 Dose: 1 appl Allergies Allergies Allergy/AdvReac Type Severity Reaction Status Date / Time nut - unspecified Allergy Severe Anaphylaxis Verified 11/12/23 09:54 tree nut Allergy Severe Anaphylaxis Verified 11/12/23 09:53 gluten Allergy Unknown Verified 11/07/23 21:02 ibuprofen Allergy Unknown Verified 11/07/23 21:02 lactose Allergy Unknown Verified 11/07/23 21:02 lamotrigine Allergy Unknown Verified 11/07/23 21:02 Peanut (Legumes) Allergy Unknown Verified 11/07/23 21:02 Assessment & Plan Assessment & Plan (1) Bipolar disorder: Status: Acute Code(s): F31.9 - Bipolar disorder, unspecified (2) Alcohol use disorder in remission: Status: Acute Code(s): F10.91 - Alcohol use, unspecified, in remission (3) Low back pain: Status: Acute Code(s): M54.50 - Low back pain, unspecified Plan Patient adamantly denies manic symptoms by history some periods of agitation disorganization severe anxiety she states she was stable on Paxil for many years this was recently discontinued reportedly she is on BuSpar Patient was well oriented with a clear sensorium very clear in detail oriented Consider Depakote patient might be bipolar 2 might have done well with the combination mood stabilizer an SSRI Patient will need psychiatric follow-up somewhat anxious and circumstantial question hypomania. Plan 1. Continue with same treatment. We are encouraging compliance but she does not have insight into her condition 2. The home health care social worker reported that most likely s at the end of the week Reason for continued inpatient stay Substantial Risk for: inability to function, rapid decompensation and med/psych decompensation Time Spent With Patient Time: Total time managing care of this patient today __20__ minutes.
[2023-11-23 20:00] VITALS: BP 141/70; PULSE 74; RESP 17; TEMP 36.2; O2SAT 96
[2023-11-24 08:05] VITALS: BP 145/96; PULSE 95; RESP 18; TEMP 36.7; O2SAT 99
[2023-11-24] MEDS: Cholecalciferol (Vitamin D3) 25 MCG TABLET PO (08:30)
[2023-11-24] MEDS: Calcium Oyster Shell Elemental 500 MG TABLET PO (08:30)
[2023-11-24] MEDS: Cyanocobalamin (Vitamin B-12) 1,000 MCG TABLET 1000 MCG PO (08:30)
[2023-11-24] MEDS: Multivitamin TABLET 1 TAB PO (08:30)
[2023-11-24] MEDS: busPIRone HCl 10 MG TABLET PO ×3 (08:30→19:32)
[2023-11-24] MEDS: Albuterol Sulfate 90 MCG 8 GM INHALER 2 PUFF INHALE (08:31)
[2023-11-24] MEDS: Lidocaine 4 % Patch ADH..PATCH 2 PATCH TRANSDERMA (08:31)
[2023-11-24] MEDS: Acetaminophen 325 MG TABLET 650 MG PO (09:56)
[2023-11-24 10:44] VITALS: BMI 24.9
--- NOTE | 2023-11-24 16:39 | P.PNPSI_ITS ---
Subjective Subjective Date of Service: 11/24/23 Reason For Visit: Bipolar disorder Subjective Notes: Conditional Voluntary Interim History: The nursing staff reported the patient had been compliant with treatment we are probably going to discharge her tomorrow. On interview the patient denies new symptoms, waiting for placement. Mental Status Exam Mental Status Exam Patient Appearance: Appropriate Patient Orientation: Person and Situation Level of Consciousness: Awake Patient Behavior: Guarded and Passive Mood Description: Withdrawn Affect Description: Constricted Patient Cognition Impaired: Yes Ability to Follow Directions: Good Speech Pattern: Clear Hallucinations: None Delusions: Not Present Thought Process: Racing and Distracted Thought Content: positive for Poverty of Content Judgement: Fair Diagnostics Vital Signs (24Hr): Vital Signs - 24 hr 11/23/23 20:00 11/24/23 08:05 Temperature 97.1 F 98.0 F Pulse Rate 74 95 Respiratory Rate 17 18 Blood Pressure 141/70 H 145/96 H Pulse Oximetry 96 99 Oxygen Delivery Method Room Air Room Air BMI result Body Mass Index 24.9 Labs 11/08/23 08:20 Medications Medications Current Medications Acetaminophen (Acetaminophen 325 Mg Tablet) 650 mg PO Q6H PRN PRN Reason: Headache/Pain Mild Scale (1-3) Last Admin: 11/24/23 09:56 Dose: 650 mg Al Hydroxide/Mg Hydroxide (Magnesium Hydrox/Alum Hydrox 30 Ml Oral.Susp) 30 ml PO Q6H PRN PRN Reason: Heartburn/Nausea Albuterol Sulfate (Albuterol Sulfate 90 Mcg 8 Gm Inhaler) 2 puff INHALE Q4H PRN PRN Reason: wheezing Last Admin: 11/24/23 08:31 Dose: 2 puff Buspirone HCl (Buspirone Hcl 10 Mg Tablet) 10 mg PO TID [facility] Last Admin: 11/24/23 14:19 Dose: 10 mg Buspirone HCl (Buspirone Hcl 10 Mg Tablet) 10 mg PO TID PRN PRN Reason: Anxiety Last Admin: 11/23/23 09:30 Dose: 10 mg Calcium Carbonate (Calcium Oyster Shell Elemental 500 Mg Tablet) 500 mg PO DAILY [facility] Last Admin: 11/24/23 08:30 Dose: 500 mg Cyanocobalamin (Cyanocobalamin (Vitamin B-12) 1,000 Mcg Tablet) 1,000 mcg PO DAILY [facility] Last Admin: 11/24/23 08:30 Dose: 1,000 mcg Lidocaine (Lidocaine 4 % Patch Adh..Patch) 2 patch TRANSDERMA DAILY [facility]; Protocol Last Admin: 11/24/23 08:31 Dose: 2 patch Magnesium Hydroxide (Milk Of Magnesia 30 Ml Oral.Susp) 30 ml PO DAILY PRN PRN Reason: Constipation Multivitamins/Vitamin C (Multivitamin Tablet) 1 tab PO DAILY [facility] Last Admin: 11/24/23 08:30 Dose: 1 tab Nicotine (Nicotine 21 Mg Patch.Td24) 21 mg TRANSDERMA DAILY PRN PRN Reason: smoking cessation Nicotine Polacrilex (Nicotine Polacrilex 2 Mg Gum) 4 mg BUCCAL Q2H PRN PRN Reason: Nicotine Cravings Olanzapine (Olanzapine 2.5 Mg Tablet) 2.5 mg PO TID PRN PRN Reason: agitation Olanzapine (Olanzapine 2.5 Mg Tablet) 2.5 mg PO BEDTIME PRN PRN Reason: psychosis Trazodone HCl (Trazodone Hcl 25 Mg Halftab) 25 mg PO BEDTIME MRX1 PRN PRN Reason: Insomnia Vitamin D (Cholecalciferol (Vitamin D3) 25 Mcg Tablet) 25 mcg PO DAILY [facility] Last Admin: 11/24/23 08:30 Dose: 25 mcg Zinc Acetate/Diphenhydramine (Diphenhydramine Hcl 2 % Cream 28 Gm Tube) 1 appl TOPICAL QID PRN; Protocol PRN Reason: Itching Last Admin: 11/23/23 15:55 Dose: 1 appl Allergies Allergies Allergy/AdvReac Type Severity Reaction Status Date / Time nut - unspecified Allergy Severe Anaphylaxis Verified 11/12/23 09:54 tree nut Allergy Severe Anaphylaxis Verified 11/12/23 09:53 gluten Allergy Unknown Verified 11/07/23 21:02 ibuprofen Allergy Unknown Verified 11/07/23 21:02 lactose Allergy Unknown Verified 11/07/23 21:02 lamotrigine Allergy Unknown Verified 11/07/23 21:02 Peanut (Legumes) Allergy Unknown Verified 11/07/23 21:02 Assessment & Plan Assessment & Plan (1) Bipolar disorder: Status: Acute Code(s): F31.9 - Bipolar disorder, unspecified (2) Alcohol use disorder in remission: Status: Acute Code(s): F10.91 - Alcohol use, unspecified, in remission (3) Low back pain: Status: Acute Code(s): M54.50 - Low back pain, unspecified Plan Patient adamantly denies manic symptoms by history some periods of agitation disorganization severe anxiety she states she was stable on Paxil for many years this was recently discontinued reportedly she is on BuSpar Patient was well oriented with a clear sensorium very clear in detail oriented Consider Depakote patient might be bipolar 2 might have done well with the combination mood stabilizer an SSRI Patient will need psychiatric follow-up somewhat anxious and circumstantial question hypomania. Plan 1. Continue with same treatment. We are encouraging compliance but she does not have insight into her condition 2. The social work instructor reported that most likely s at the end of the week Reason for continued inpatient stay Substantial Risk for: inability to function, rapid decompensation and med/psych decompensation Time Spent With Patient Time: Total time managing care of this patient today _20___ minutes.
[2023-11-24 19:31] VITALS: BP 164/74; PULSE 85; RESP 16; TEMP 36.5; O2SAT 99
[2023-11-25] MEDS: diphenhydrAMINE HCl 2 % Cream 28 GM TUBE 1 APPL TOPICAL ×2 (05:09→21:08)
[2023-11-25 08:04] VITALS: BP 123/76; PULSE 79; RESP 16; TEMP 36.8; O2SAT 100
[2023-11-25] MEDS: Calcium Oyster Shell Elemental 500 MG TABLET PO (08:05)
[2023-11-25] MEDS: Multivitamin TABLET 1 TAB PO (08:06)
[2023-11-25] MEDS: Cyanocobalamin (Vitamin B-12) 1,000 MCG TABLET 1000 MCG PO (08:06)
[2023-11-25] MEDS: Cholecalciferol (Vitamin D3) 25 MCG TABLET PO (08:06)
[2023-11-25] MEDS: busPIRone HCl 10 MG TABLET PO ×4 (08:06→23:05)
[2023-11-25] MEDS: Lidocaine 4 % Patch ADH..PATCH 2 PATCH TRANSDERMA (14:57)
--- NOTE | 2023-11-25 15:23 | P.PNPSI_ITS ---
Subjective Subjective Date of Service: 11/25/23 Reason For Visit: Bipolar disorder Subjective Notes: Conditional Voluntary Interim History: The nursing staff reported the patient slept 7 hours no changes in her mental status. The sr. social media & mobile manager reported the [facility] is taking into her application and probably she could be discharged next week over there. On interview the patient denies new symptoms, waiting for placement. Mental Status Exam Mental Status Exam Patient Appearance: Appropriate Patient Orientation: Person and Situation Level of Consciousness: Awake and Appropriate Patient Behavior: Guarded and Passive Mood Description: Withdrawn Affect Description: Constricted Patient Cognition Impaired: Yes Ability to Follow Directions: Good Speech Pattern: Clear Hallucinations: None Delusions: Not Present Thought Process: Distracted and Slowed Thinking Thought Content: positive for [place] and positive for Poverty of Content Judgement: Fair Diagnostics Vital Signs (24Hr): Vital Signs - 24 hr 11/24/23 19:31 11/25/23 08:04 Temperature 97.7 F 98.2 F Pulse Rate 85 79 Respiratory Rate 16 16 Blood Pressure 164/74 H 123/76 Pulse Oximetry 99 100 Oxygen Delivery Method Room Air Room Air BMI result Body Mass Index 24.9 Labs 11/08/23 08:20 Medications Medications Current Medications Acetaminophen (Acetaminophen 325 Mg Tablet) 650 mg PO Q6H PRN PRN Reason: Headache/Pain Mild Scale (1-3) Last Admin: 11/24/23 09:56 Dose: 650 mg Al Hydroxide/Mg Hydroxide (Magnesium Hydrox/Alum Hydrox 30 Ml Oral.Susp) 30 ml PO Q6H PRN PRN Reason: Heartburn/Nausea Albuterol Sulfate (Albuterol Sulfate 90 Mcg 8 Gm Inhaler) 2 puff INHALE Q4H PRN PRN Reason: wheezing Last Admin: 11/24/23 08:31 Dose: 2 puff Buspirone HCl (Buspirone Hcl 10 Mg Tablet) 10 mg PO TID [facility] Last Admin: 11/25/23 14:56 Dose: 10 mg Buspirone HCl (Buspirone Hcl 10 Mg Tablet) 10 mg PO TID PRN PRN Reason: Anxiety Last Admin: 11/23/23 09:30 Dose: 10 mg Calcium Carbonate (Calcium Oyster Shell Elemental 500 Mg Tablet) 500 mg PO DAILY [facility] Last Admin: 11/25/23 08:05 Dose: 500 mg Cyanocobalamin (Cyanocobalamin (Vitamin B-12) 1,000 Mcg Tablet) 1,000 mcg PO DAILY [facility] Last Admin: 11/25/23 08:06 Dose: 1,000 mcg Lidocaine (Lidocaine 4 % Patch Adh..Patch) 2 patch TRANSDERMA DAILY [facility]; Protocol Last Admin: 11/25/23 14:57 Dose: 2 patch Magnesium Hydroxide (Milk Of Magnesia 30 Ml Oral.Susp) 30 ml PO DAILY PRN PRN Reason: Constipation Multivitamins/Vitamin C (Multivitamin Tablet) 1 tab PO DAILY [facility] Last Admin: 11/25/23 08:06 Dose: 1 tab Nicotine (Nicotine 21 Mg Patch.Td24) 21 mg TRANSDERMA DAILY PRN PRN Reason: smoking cessation Nicotine Polacrilex (Nicotine Polacrilex 2 Mg Gum) 4 mg BUCCAL Q2H PRN PRN Reason: Nicotine Cravings Olanzapine (Olanzapine 2.5 Mg Tablet) 2.5 mg PO TID PRN PRN Reason: agitation Olanzapine (Olanzapine 2.5 Mg Tablet) 2.5 mg PO BEDTIME PRN PRN Reason: psychosis Trazodone HCl (Trazodone Hcl 25 Mg Halftab) 25 mg PO BEDTIME MRX1 PRN PRN Reason: Insomnia Vitamin D (Cholecalciferol (Vitamin D3) 25 Mcg Tablet) 25 mcg PO DAILY [facility] Last Admin: 11/25/23 08:06 Dose: 25 mcg Zinc Acetate/Diphenhydramine (Diphenhydramine Hcl 2 % Cream 28 Gm Tube) 1 appl TOPICAL QID PRN; Protocol PRN Reason: Itching Last Admin: 11/25/23 05:09 Dose: 1 appl Allergies Allergies Allergy/AdvReac Type Severity Reaction Status Date / Time nut - unspecified Allergy Severe Anaphylaxis Verified 11/12/23 09:54 tree nut Allergy Severe Anaphylaxis Verified 11/12/23 09:53 gluten Allergy Unknown Verified 11/07/23 21:02 ibuprofen Allergy Unknown Verified 11/07/23 21:02 lactose Allergy Unknown Verified 11/07/23 21:02 lamotrigine Allergy Unknown Verified 11/07/23 21:02 Peanut (Legumes) Allergy Unknown Verified 11/07/23 21:02 Assessment & Plan Assessment & Plan (1) Bipolar disorder: Status: Acute Code(s): F31.9 - Bipolar disorder, unspecified (2) Alcohol use disorder in remission: Status: Acute Code(s): F10.91 - Alcohol use, unspecified, in remission (3) Low back pain: Status: Acute Code(s): M54.50 - Low back pain, unspecified Plan Patient adamantly denies manic symptoms by history some periods of agitation disorganization severe anxiety she states she was stable on Paxil for many years this was recently discontinued reportedly she is on BuSpar Patient was well oriented with a clear sensorium very clear in detail oriented Consider Depakote patient might be bipolar 2 might have done well with the combination mood stabilizer an SSRI Patient will need psychiatric follow-up somewhat anxious and circumstantial question hypomania. Plan 1. Continue with same treatment. We are encouraging compliance but she does not have insight into her condition 2. The sr. social media & mobile manager reported that most likely s at the end of the week Reason for continued inpatient stay Substantial Risk for: inability to function, rapid decompensation and med/psych decompensation Time Spent With Patient Time: Total time managing care of this patient today __20__ minutes.
[2023-11-25 20:00] VITALS: BP 154/71; PULSE 71; RESP 18; TEMP 36.8; O2SAT 99
[2023-11-25] MEDS: Acetaminophen 325 MG TABLET 650 MG PO (23:04)
[2023-11-26 08:00] VITALS: BP 115/82; PULSE 80; RESP 18; TEMP 36.9; O2SAT 100
[2023-11-26] MEDS: Multivitamin TABLET 1 TAB PO (09:20)
[2023-11-26] MEDS: Cyanocobalamin (Vitamin B-12) 1,000 MCG TABLET 1000 MCG PO (09:20)
[2023-11-26] MEDS: busPIRone HCl 10 MG TABLET PO ×3 (09:20→21:15)
[2023-11-26] MEDS: Cholecalciferol (Vitamin D3) 25 MCG TABLET PO (09:20)
[2023-11-26] MEDS: Calcium Oyster Shell Elemental 500 MG TABLET PO (09:20)
[2023-11-26] MEDS: Acetaminophen 325 MG TABLET 650 MG PO (12:04)
--- NOTE | 2023-11-26 15:18 | P.PNPSI_ITS ---
Subjective Subjective Date of Service: 11/26/23 Reason For Visit: Bipolar disorder Interim History: Met with patient; discussed with team Patient is very talkative, rambling but on relevant topics. Patient says she wants Paxil however typewriter assembly and parts inspector explains that she may need a mood stabilizer 1st however she declines. She says she has had depression and anxiety since he was 8 years old and is grateful BuSpar was restarted which she said is helpful. Mental Status Exam Mental Status Exam Narrative: Pt is alert and oriented; behavior is hypomanic, talking nonstop but also cooperative, friendly and calm; patient is not in distress; dressed in casual attire, well groomed; mood is described as good and affect congruent, bright; eye contact appropriate; Speech is verbose and mildly pressured; normal volume and prosody; no psychomotor agitation/retardation present; thought process is goal directed but patient rambles and is circumstantial; Thought content is on tx, medications; otherwise pertinent to relevant topics and without any delusional content, paranoid ideations or grandiosity; denies any SI/HI. There is no evidence of perceptual disturbance. Patients insight and judgment impaired Diagnostics Vital Signs (24Hr): Vital Signs - 24 hr 11/25/23 20:00 11/26/23 08:00 Temperature 98.3 F 98.4 F Pulse Rate 71 80 Respiratory Rate 18 18 Blood Pressure 154/71 H 115/82 Pulse Oximetry 99 100 Oxygen Delivery Method Room Air Room Air BMI result Body Mass Index 24.9 Labs 11/08/23 08:20 Medications Medications Current Medications Acetaminophen (Acetaminophen 325 Mg Tablet) 650 mg PO Q6H PRN PRN Reason: Headache/Pain Mild Scale (1-3) Last Admin: 11/26/23 12:04 Dose: 650 mg Al Hydroxide/Mg Hydroxide (Magnesium Hydrox/Alum Hydrox 30 Ml Oral.Susp) 30 ml PO Q6H PRN PRN Reason: Heartburn/Nausea Albuterol Sulfate (Albuterol Sulfate 90 Mcg 8 Gm Inhaler) 2 puff INHALE Q4H PRN PRN Reason: wheezing Last Admin: 11/24/23 08:31 Dose: 2 puff Buspirone HCl (Buspirone Hcl 10 Mg Tablet) 10 mg PO TID [facility] Last Admin: 11/26/23 14:50 Dose: 10 mg Buspirone HCl (Buspirone Hcl 10 Mg Tablet) 10 mg PO TID PRN PRN Reason: Anxiety Last Admin: 11/25/23 23:05 Dose: 10 mg Calcium Carbonate (Calcium Oyster Shell Elemental 500 Mg Tablet) 500 mg PO DAILY [facility] Last Admin: 11/26/23 09:20 Dose: 500 mg Cyanocobalamin (Cyanocobalamin (Vitamin B-12) 1,000 Mcg Tablet) 1,000 mcg PO DAILY [facility] Last Admin: 11/26/23 09:20 Dose: 1,000 mcg Lidocaine (Lidocaine 4 % Patch Adh..Patch) 2 patch TRANSDERMA DAILY [facility]; Protocol Last Admin: 11/26/23 09:35 Dose: Not Given Magnesium Hydroxide (Milk Of Magnesia 30 Ml Oral.Susp) 30 ml PO DAILY PRN PRN Reason: Constipation Multivitamins/Vitamin C (Multivitamin Tablet) 1 tab PO DAILY [facility] Last Admin: 11/26/23 09:20 Dose: 1 tab Nicotine (Nicotine 21 Mg Patch.Td24) 21 mg TRANSDERMA DAILY PRN PRN Reason: smoking cessation Nicotine Polacrilex (Nicotine Polacrilex 2 Mg Gum) 4 mg BUCCAL Q2H PRN PRN Reason: Nicotine Cravings Olanzapine (Olanzapine 2.5 Mg Tablet) 2.5 mg PO TID PRN PRN Reason: agitation Olanzapine (Olanzapine 2.5 Mg Tablet) 2.5 mg PO BEDTIME PRN PRN Reason: psychosis Trazodone HCl (Trazodone Hcl 25 Mg Halftab) 25 mg PO BEDTIME MRX1 PRN PRN Reason: Insomnia Vitamin D (Cholecalciferol (Vitamin D3) 25 Mcg Tablet) 25 mcg PO DAILY [facility] Last Admin: 11/26/23 09:20 Dose: 25 mcg Zinc Acetate/Diphenhydramine (Diphenhydramine Hcl 2 % Cream 28 Gm Tube) 1 appl TOPICAL QID PRN; Protocol PRN Reason: Itching Last Admin: 11/25/23 21:08 Dose: 1 appl Allergies Allergies Allergy/AdvReac Type Severity Reaction Status Date / Time nut - unspecified Allergy Severe Anaphylaxis Verified 11/12/23 09:54 tree nut Allergy Severe Anaphylaxis Verified 11/12/23 09:53 gluten Allergy Unknown Verified 11/07/23 21:02 ibuprofen Allergy Unknown Verified 11/07/23 21:02 lactose Allergy Unknown Verified 11/07/23 21:02 lamotrigine Allergy Unknown Verified 11/07/23 21:02 Peanut (Legumes) Allergy Unknown Verified 11/07/23 21:02 Assessment & Plan Assessment & Plan (1) Bipolar disorder: Status: Acute Code(s): F31.9 - Bipolar disorder, unspecified (2) Alcohol use disorder in remission: Status: Acute Code(s): F10.91 - Alcohol use, unspecified, in remission (3) Low back pain: Status: Acute Code(s): M54.50 - Low back pain, unspecified Plan Patient adamantly denies manic symptoms by history some periods of agitation disorganization severe anxiety she states she was stable on Paxil for many years this was recently discontinued reportedly she is on BuSpar Patient was well oriented with a clear sensorium very clear in detail oriented Consider Depakote patient might be bipolar 2 might have done well with the combination mood stabilizer an SSRI Patient will need psychiatric follow-up somewhat anxious and circumstantial question hypomania. Hospital course: 11/25 patient refuses Zyprexa which typewriter assembly and parts inspector offered as a mood stabilizer; she wants Paxil but accepted that typewriter assembly and parts inspector does not think it is a good idea right now (since not on a mood stabilizer and appears to be hypomanic). Plan 1. Continue with same treatment. We are encouraging compliance but she does not have insight into her condition 2. The social media designer reported that most likely s at the end of the week Patient educated on: diagnosis and medication risk/benefits Informed Consent: understands, does not understand and further education needed Reason for continued inpatient stay Substantial Risk for: rapid decompensation Time Spent With Patient Time: Total time managing care of this patient today ____ minutes.
[2023-11-26] MEDS: Aspirin 325 MG TABLET PO (15:43)
[2023-11-26 20:00] VITALS: BP 129/69; PULSE 76; RESP 18; TEMP 36.4; O2SAT 99
[2023-11-27 08:00] VITALS: BP 144/65; PULSE 72; RESP 18; TEMP 36.1; O2SAT 100
[2023-11-27] MEDS: Cyanocobalamin (Vitamin B-12) 1,000 MCG TABLET 1000 MCG PO (08:54)
[2023-11-27] MEDS: busPIRone HCl 10 MG TABLET PO ×3 (08:54→20:34)
[2023-11-27] MEDS: Cholecalciferol (Vitamin D3) 25 MCG TABLET PO (08:54)
[2023-11-27] MEDS: Albuterol Sulfate 90 MCG 8 GM INHALER 2 PUFF INHALE (08:54)
[2023-11-27] MEDS: Multivitamin TABLET 1 TAB PO (08:55)
[2023-11-27] MEDS: Calcium Oyster Shell Elemental 500 MG TABLET PO (09:08)
[2023-11-27] MEDS: Acetaminophen 325 MG TABLET 650 MG PO ×2 (10:26→18:57)
[2023-11-27] MEDS: Lidocaine 4 % Patch ADH..PATCH 2 PATCH TRANSDERMA (14:14)
[2023-11-27] MEDS: Loratadine 10 MG TABLET PO (15:32)
--- NOTE | 2023-11-27 16:48 | P.PNPSI_ITS ---
Subjective Subjective Date of Service: 11/27/23 Reason For Visit: Bipolar disorder Interim History: Met with patient; discussed with team Patient continues to be verbose but is also pleasant and friendly; reports has allergies and asked for Claritin to be restarted which was. Mental Status Exam Mental Status Exam Narrative: Pt is alert and oriented; behavior is hypomanic, talking nonstop but also cooperative, friendly and calm; patient is not in distress; dressed in casual attire, well groomed; mood is described as good and affect congruent, bright; eye contact appropriate; Speech is verbose and mildly pressured; normal volume and prosody; no psychomotor agitation/retardation present; thought process is goal directed but patient rambles and is circumstantial; Thought content is on tx, medications; otherwise pertinent to relevant topics and without any delusional content, paranoid ideations or grandiosity; denies any SI/HI. There is no evidence of perceptual disturbance. Patients insight and judgment impaired Diagnostics Vital Signs (24Hr): Vital Signs - 24 hr 11/26/23 20:00 11/27/23 08:00 Temperature 97.6 F 96.9 F Pulse Rate 76 72 Respiratory Rate 18 18 Blood Pressure 129/69 144/65 H Pulse Oximetry 99 100 Oxygen Delivery Method Room Air Room Air BMI result Body Mass Index 24.9 Labs 11/08/23 08:20 Medications Medications Current Medications Acetaminophen (Acetaminophen 325 Mg Tablet) 650 mg PO Q6H PRN PRN Reason: Headache/Pain Mild Scale (1-3) Last Admin: 11/27/23 10:26 Dose: 650 mg Al Hydroxide/Mg Hydroxide (Magnesium Hydrox/Alum Hydrox 30 Ml Oral.Susp) 30 ml PO Q6H PRN PRN Reason: Heartburn/Nausea Albuterol Sulfate (Albuterol Sulfate 90 Mcg 8 Gm Inhaler) 2 puff INHALE Q4H PRN PRN Reason: wheezing Last Admin: 11/27/23 08:54 Dose: 2 puff Buspirone HCl (Buspirone Hcl 10 Mg Tablet) 10 mg PO TID [facility] Last Admin: 11/27/23 14:17 Dose: 10 mg Buspirone HCl (Buspirone Hcl 10 Mg Tablet) 10 mg PO TID PRN PRN Reason: Anxiety Last Admin: 11/25/23 23:05 Dose: 10 mg Calcium Carbonate (Calcium Oyster Shell Elemental 500 Mg Tablet) 500 mg PO DAILY [facility] Last Admin: 11/27/23 09:08 Dose: 500 mg Cyanocobalamin (Cyanocobalamin (Vitamin B-12) 1,000 Mcg Tablet) 1,000 mcg PO DAILY [facility] Last Admin: 11/27/23 08:54 Dose: 1,000 mcg Lidocaine (Lidocaine 4 % Patch Adh..Patch) 2 patch TRANSDERMA DAILY [facility]; Protocol Last Admin: 11/27/23 14:14 Dose: 2 patch Loratadine (Loratadine 10 Mg Tablet) 10 mg PO DAILY [facility] Magnesium Hydroxide (Milk Of Magnesia 30 Ml Oral.Susp) 30 ml PO DAILY PRN PRN Reason: Constipation Multivitamins/Vitamin C (Multivitamin Tablet) 1 tab PO DAILY [facility] Last Admin: 11/27/23 08:55 Dose: 1 tab Nicotine (Nicotine 21 Mg Patch.Td24) 21 mg TRANSDERMA DAILY PRN PRN Reason: smoking cessation Nicotine Polacrilex (Nicotine Polacrilex 2 Mg Gum) 4 mg BUCCAL Q2H PRN PRN Reason: Nicotine Cravings Olanzapine (Olanzapine 2.5 Mg Tablet) 2.5 mg PO TID PRN PRN Reason: agitation Olanzapine (Olanzapine 2.5 Mg Tablet) 2.5 mg PO BEDTIME PRN PRN Reason: psychosis Trazodone HCl (Trazodone Hcl 25 Mg Halftab) 25 mg PO BEDTIME MRX1 PRN PRN Reason: Insomnia Vitamin D (Cholecalciferol (Vitamin D3) 25 Mcg Tablet) 25 mcg PO DAILY [facility] Last Admin: 11/27/23 08:54 Dose: 25 mcg Zinc Acetate/Diphenhydramine (Diphenhydramine Hcl 2 % Cream 28 Gm Tube) 1 appl TOPICAL QID PRN; Protocol PRN Reason: Itching Last Admin: 11/25/23 21:08 Dose: 1 appl Allergies Allergies Allergy/AdvReac Type Severity Reaction Status Date / Time nut - unspecified Allergy Severe Anaphylaxis Verified 11/12/23 09:54 tree nut Allergy Severe Anaphylaxis Verified 11/12/23 09:53 gluten Allergy Unknown Verified 11/07/23 21:02 ibuprofen Allergy Unknown Verified 11/07/23 21:02 lactose Allergy Unknown Verified 11/07/23 21:02 lamotrigine Allergy Unknown Verified 11/07/23 21:02 Peanut (Legumes) Allergy Unknown Verified 11/07/23 21:02 Assessment & Plan Assessment & Plan (1) Bipolar disorder: Status: Acute Code(s): F31.9 - Bipolar disorder, unspecified (2) Alcohol use disorder in remission: Status: Acute Code(s): F10.91 - Alcohol use, unspecified, in remission (3) Low back pain: Status: Acute Code(s): M54.50 - Low back pain, unspecified Plan Patient adamantly denies manic symptoms by history some periods of agitation disorganization severe anxiety she states she was stable on Paxil for many years this was recently discontinued reportedly she is on BuSpar Patient was well oriented with a clear sensorium very clear in detail oriented Consider Depakote patient might be bipolar 2 might have done well with the combination mood stabilizer an SSRI Patient will need psychiatric follow-up somewhat anxious and circumstantial question hypomania. Hospital course: 11/25 patient refuses Zyprexa which life underwriter offered as a mood stabilizer; she wants Paxil but accepted that life underwriter does not think it is a good idea right now (since not on a mood stabilizer and appears to be hypomanic). 11/26 started Claritin Plan 1. Continue with same treatment. We are encouraging compliance but she does not have insight into her condition 2. The social media content manager reported that most likely s at the end of the week Patient educated on: diagnosis and medical condition Informed Consent: understands, does not understand and further education needed Reason for continued inpatient stay Substantial Risk for: rapid decompensation Time Spent With Patient Time: Total time managing care of this patient today ____ minutes.
[2023-11-27 20:00] VITALS: BP 143/71; PULSE 74; RESP 16; TEMP 35.9; O2SAT 99
[2023-11-28 08:14] VITALS: BP 133/79; PULSE 74; RESP 17; TEMP 36.1; O2SAT 98
[2023-11-28] MEDS: busPIRone HCl 10 MG TABLET PO ×3 (08:15→20:21)
[2023-11-28] MEDS: Cyanocobalamin (Vitamin B-12) 1,000 MCG TABLET 1000 MCG PO (08:16)
[2023-11-28] MEDS: Cholecalciferol (Vitamin D3) 25 MCG TABLET PO (08:16)
[2023-11-28] MEDS: Calcium Oyster Shell Elemental 500 MG TABLET PO (08:16)
[2023-11-28] MEDS: Multivitamin TABLET 1 TAB PO (08:16)
[2023-11-28] MEDS: Loratadine 10 MG TABLET PO (08:16)
[2023-11-28] MEDS: Lidocaine 4 % Patch ADH..PATCH 2 PATCH TRANSDERMA (09:41)
--- NOTE | 2023-11-28 12:11 | P.PNPSI_ITS ---
Subjective Subjective Date of Service: 11/28/23 Reason For Visit: Bipolar disorder Subjective Notes: Conditional Voluntary Interim History: The nursing staff reported the patient had been anxious, alert denies depression. She slept 6 hours. The protective services social worker reported that we were meals accepted her and she can be discharged next Tuesday. On interview the patient denies new symptoms, waiting for placement. Mental Status Exam Mental Status Exam Patient Appearance: Appropriate Patient Orientation: Person and Situation Level of Consciousness: Awake and Appropriate Patient Behavior: Guarded and Passive Mood Description: Withdrawn Affect Description: Constricted Patient Cognition Impaired: Yes Ability to Follow Directions: Good Speech Pattern: Clear Hallucinations: None Delusions: Not Present Thought Process: Distracted and Slowed Thinking Thought Content: positive for [place] and positive for Poverty of Content Judgement: Fair Diagnostics Vital Signs (24Hr): Vital Signs - 24 hr 11/27/23 20:00 11/28/23 08:14 Temperature 96.7 F L 96.9 F Pulse Rate 74 74 Respiratory Rate 16 17 Blood Pressure 143/71 H 133/79 Pulse Oximetry 99 98 Oxygen Delivery Method Room Air Room Air BMI result Body Mass Index 24.9 Labs 11/08/23 08:20 Medications Medications Current Medications Acetaminophen (Acetaminophen 325 Mg Tablet) 650 mg PO Q6H PRN PRN Reason: Headache/Pain Mild Scale (1-3) Last Admin: 11/27/23 18:57 Dose: 650 mg Al Hydroxide/Mg Hydroxide (Magnesium Hydrox/Alum Hydrox 30 Ml Oral.Susp) 30 ml PO Q6H PRN PRN Reason: Heartburn/Nausea Albuterol Sulfate (Albuterol Sulfate 90 Mcg 8 Gm Inhaler) 2 puff INHALE Q4H PRN PRN Reason: wheezing Last Admin: 11/27/23 08:54 Dose: 2 puff Buspirone HCl (Buspirone Hcl 10 Mg Tablet) 10 mg PO TID [facility] Last Admin: 11/28/23 08:15 Dose: 10 mg Buspirone HCl (Buspirone Hcl 10 Mg Tablet) 10 mg PO TID PRN PRN Reason: Anxiety Last Admin: 11/25/23 23:05 Dose: 10 mg Calcium Carbonate (Calcium Oyster Shell Elemental 500 Mg Tablet) 500 mg PO DAILY [facility] Last Admin: 11/28/23 08:16 Dose: 500 mg Cyanocobalamin (Cyanocobalamin (Vitamin B-12) 1,000 Mcg Tablet) 1,000 mcg PO DAILY [facility] Last Admin: 11/28/23 08:16 Dose: 1,000 mcg Lidocaine (Lidocaine 4 % Patch Adh..Patch) 2 patch TRANSDERMA DAILY [facility]; Protocol Last Admin: 11/28/23 09:41 Dose: 2 patch Loratadine (Loratadine 10 Mg Tablet) 10 mg PO DAILY [facility] Last Admin: 11/28/23 08:16 Dose: 10 mg Magnesium Hydroxide (Milk Of Magnesia 30 Ml Oral.Susp) 30 ml PO DAILY PRN PRN Reason: Constipation Multivitamins/Vitamin C (Multivitamin Tablet) 1 tab PO DAILY [facility] Last Admin: 11/28/23 08:16 Dose: 1 tab Nicotine (Nicotine 21 Mg Patch.Td24) 21 mg TRANSDERMA DAILY PRN PRN Reason: smoking cessation Nicotine Polacrilex (Nicotine Polacrilex 2 Mg Gum) 4 mg BUCCAL Q2H PRN PRN Reason: Nicotine Cravings Olanzapine (Olanzapine 2.5 Mg Tablet) 2.5 mg PO TID PRN PRN Reason: agitation Olanzapine (Olanzapine 2.5 Mg Tablet) 2.5 mg PO BEDTIME PRN PRN Reason: psychosis Trazodone HCl (Trazodone Hcl 25 Mg Halftab) 25 mg PO BEDTIME MRX1 PRN PRN Reason: Insomnia Vitamin D (Cholecalciferol (Vitamin D3) 25 Mcg Tablet) 25 mcg PO DAILY [facility] Last Admin: 11/28/23 08:16 Dose: 25 mcg Zinc Acetate/Diphenhydramine (Diphenhydramine Hcl 2 % Cream 28 Gm Tube) 1 appl TOPICAL QID PRN; Protocol PRN Reason: Itching Last Admin: 11/25/23 21:08 Dose: 1 appl Allergies Allergies Allergy/AdvReac Type Severity Reaction Status Date / Time nut - unspecified Allergy Severe Anaphylaxis Verified 11/12/23 09:54 tree nut Allergy Severe Anaphylaxis Verified 11/12/23 09:53 gluten Allergy Unknown Verified 11/07/23 21:02 ibuprofen Allergy Unknown Verified 11/07/23 21:02 lactose Allergy Unknown Verified 11/07/23 21:02 lamotrigine Allergy Unknown Verified 11/07/23 21:02 Peanut (Legumes) Allergy Unknown Verified 11/07/23 21:02 Assessment & Plan Assessment & Plan (1) Bipolar disorder: Status: Acute Code(s): F31.9 - Bipolar disorder, unspecified (2) Alcohol use disorder in remission: Status: Acute Code(s): F10.91 - Alcohol use, unspecified, in remission (3) Low back pain: Status: Acute Code(s): M54.50 - Low back pain, unspecified Plan Patient adamantly denies manic symptoms by history some periods of agitation disorganization severe anxiety she states she was stable on Paxil for many years this was recently discontinued reportedly she is on BuSpar Patient was well oriented with a clear sensorium very clear in detail oriented Consider Depakote patient might be bipolar 2 might have done well with the combination mood stabilizer an SSRI Patient will need psychiatric follow-up somewhat anxious and circumstantial question hypomania. Hospital course: 11/25 patient refuses Zyprexa which specifications writer offered as a mood stabilizer; she wants Paxil but accepted that specifications writer does not think it is a good idea right now (since not on a mood stabilizer and appears to be hypomanic). 11/26 started Claritin Plan 1. Continue with same treatment. We are encouraging compliance but she does not have insight into her condition 2. The protective services social worker reported that most likely s at the end of the week Reason for continued inpatient stay Substantial Risk for: inability to function, rapid decompensation and med/psych decompensation Time Spent With Patient Time: Total time managing care of this patient today __20__ minutes.
[2023-11-28] MEDS: Acetaminophen 325 MG TABLET 650 MG PO (13:28)
[2023-11-28 20:00] VITALS: BP 131/63; PULSE 72; RESP 18; TEMP 36.7; O2SAT 97
[2023-11-29 08:00] VITALS: BP 136/72; PULSE 69; RESP 17; TEMP 36.5; O2SAT 100
[2023-11-29] MEDS: busPIRone HCl 10 MG TABLET PO ×3 (08:05→20:48)
[2023-11-29] MEDS: Loratadine 10 MG TABLET PO (08:05)
[2023-11-29] MEDS: Cholecalciferol (Vitamin D3) 25 MCG TABLET PO (08:05)
[2023-11-29] MEDS: Multivitamin TABLET 1 TAB PO (08:05)
[2023-11-29] MEDS: Calcium Oyster Shell Elemental 500 MG TABLET PO (08:05)
[2023-11-29] MEDS: Cyanocobalamin (Vitamin B-12) 1,000 MCG TABLET 1000 MCG PO (08:05)
[2023-11-29] MEDS: Lidocaine 4 % Patch ADH..PATCH 2 PATCH TRANSDERMA (08:44)
--- NOTE | 2023-11-29 13:38 | P.PNPSI_ITS ---
Subjective Subjective Date of Service: 11/29/23 Reason For Visit: Bipolar disorder Subjective Notes: Conditional Voluntary Interim History: The nursing staff reported the patient slept 8 hours, she will be discharged next Tuesday as per director of social services referral. On interview the patient denies new symptoms, waiting for placement. Mental Status Exam Mental Status Exam Patient Appearance: Well Grooomed and Appropriate Patient Orientation: Person and Situation Level of Consciousness: Awake and Appropriate Patient Behavior: Guarded and Passive Mood Description: Withdrawn Affect Description: Constricted Patient Cognition Impaired: Yes Ability to Follow Directions: Good Speech Pattern: Clear Hallucinations: None Delusions: Not Present Thought Process: Evasive Thought Content: positive for [place] and positive for Poverty of Content Judgement: Fair Diagnostics Vital Signs (24Hr): Vital Signs - 24 hr 11/28/23 20:00 11/29/23 08:00 Temperature 98.1 F 97.7 F Pulse Rate 72 69 Respiratory Rate 18 17 Blood Pressure 131/63 136/72 Pulse Oximetry 97 100 Oxygen Delivery Method Room Air Room Air BMI result Body Mass Index 24.9 Labs 11/08/23 08:20 Medications Medications Current Medications Acetaminophen (Acetaminophen 325 Mg Tablet) 650 mg PO Q6H PRN PRN Reason: Headache/Pain Mild Scale (1-3) Last Admin: 11/28/23 13:28 Dose: 650 mg Al Hydroxide/Mg Hydroxide (Magnesium Hydrox/Alum Hydrox 30 Ml Oral.Susp) 30 ml PO Q6H PRN PRN Reason: Heartburn/Nausea Albuterol Sulfate (Albuterol Sulfate 90 Mcg 8 Gm Inhaler) 2 puff INHALE Q4H PRN PRN Reason: wheezing Last Admin: 11/27/23 08:54 Dose: 2 puff Buspirone HCl (Buspirone Hcl 10 Mg Tablet) 10 mg PO TID [facility] Last Admin: 11/29/23 08:05 Dose: 10 mg Buspirone HCl (Buspirone Hcl 10 Mg Tablet) 10 mg PO TID PRN PRN Reason: Anxiety Last Admin: 11/25/23 23:05 Dose: 10 mg Calcium Carbonate (Calcium Oyster Shell Elemental 500 Mg Tablet) 500 mg PO DAILY [facility] Last Admin: 11/29/23 08:05 Dose: 500 mg Cyanocobalamin (Cyanocobalamin (Vitamin B-12) 1,000 Mcg Tablet) 1,000 mcg PO DAILY [facility] Last Admin: 11/29/23 08:05 Dose: 1,000 mcg Lidocaine (Lidocaine 4 % Patch Adh..Patch) 2 patch TRANSDERMA DAILY [facility]; Protocol Last Admin: 11/29/23 08:44 Dose: 2 patch Loratadine (Loratadine 10 Mg Tablet) 10 mg PO DAILY [facility] Last Admin: 11/29/23 08:05 Dose: 10 mg Magnesium Hydroxide (Milk Of Magnesia 30 Ml Oral.Susp) 30 ml PO DAILY PRN PRN Reason: Constipation Multivitamins/Vitamin C (Multivitamin Tablet) 1 tab PO DAILY [facility] Last Admin: 11/29/23 08:05 Dose: 1 tab Nicotine (Nicotine 21 Mg Patch.Td24) 21 mg TRANSDERMA DAILY PRN PRN Reason: smoking cessation Nicotine Polacrilex (Nicotine Polacrilex 2 Mg Gum) 4 mg BUCCAL Q2H PRN PRN Reason: Nicotine Cravings Olanzapine (Olanzapine 2.5 Mg Tablet) 2.5 mg PO TID PRN PRN Reason: agitation Olanzapine (Olanzapine 2.5 Mg Tablet) 2.5 mg PO BEDTIME PRN PRN Reason: psychosis Trazodone HCl (Trazodone Hcl 25 Mg Halftab) 25 mg PO BEDTIME MRX1 PRN PRN Reason: Insomnia Vitamin D (Cholecalciferol (Vitamin D3) 25 Mcg Tablet) 25 mcg PO DAILY [facility] Last Admin: 11/29/23 08:05 Dose: 25 mcg Zinc Acetate/Diphenhydramine (Diphenhydramine Hcl 2 % Cream 28 Gm Tube) 1 appl TOPICAL QID PRN; Protocol PRN Reason: Itching Last Admin: 11/25/23 21:08 Dose: 1 appl Allergies Allergies Allergy/AdvReac Type Severity Reaction Status Date / Time nut - unspecified Allergy Severe Anaphylaxis Verified 11/12/23 09:54 tree nut Allergy Severe Anaphylaxis Verified 11/12/23 09:53 gluten Allergy Unknown Verified 11/07/23 21:02 ibuprofen Allergy Unknown Verified 11/07/23 21:02 lactose Allergy Unknown Verified 11/07/23 21:02 lamotrigine Allergy Unknown Verified 11/07/23 21:02 Peanut (Legumes) Allergy Unknown Verified 11/07/23 21:02 Assessment & Plan Assessment & Plan (1) Bipolar disorder: Status: Acute Code(s): F31.9 - Bipolar disorder, unspecified (2) Alcohol use disorder in remission: Status: Acute Code(s): F10.91 - Alcohol use, unspecified, in remission (3) Low back pain: Status: Acute Code(s): M54.50 - Low back pain, unspecified Plan Patient adamantly denies manic symptoms by history some periods of agitation disorganization severe anxiety she states she was stable on Paxil for many years this was recently discontinued reportedly she is on BuSpar Patient was well oriented with a clear sensorium very clear in detail oriented Consider Depakote patient might be bipolar 2 might have done well with the combination mood stabilizer an SSRI Patient will need psychiatric follow-up somewhat anxious and circumstantial question hypomania. Hospital course: 11/25 patient refuses Zyprexa which fiction writer offered as a mood stabilizer; she wants Paxil but accepted that fiction writer does not think it is a good idea right now (since not on a mood stabilizer and appears to be hypomanic). 11/26 started Claritin Plan 1. Continue with same treatment. We are encouraging compliance but she does not have insight into her condition 2. The director of social services reported that most likely s at the end of the week Reason for continued inpatient stay Substantial Risk for: inability to function, rapid decompensation and med/psych decompensation Time Spent With Patient Time: Total time managing care of this patient today __20__ minutes.
[2023-11-29] MEDS: Acetaminophen 325 MG TABLET 650 MG PO (15:17)
[2023-11-29 20:00] VITALS: BP 132/68; PULSE 80; RESP 18; TEMP 36.6; O2SAT 97
[2023-11-30 07:56] VITALS: BP 154/81; PULSE 83; RESP 16; TEMP 36.5; O2SAT 100
[2023-11-30] MEDS: busPIRone HCl 10 MG TABLET PO ×3 (08:31→21:08)
[2023-11-30] MEDS: Loratadine 10 MG TABLET PO (08:32)
[2023-11-30] MEDS: Cyanocobalamin (Vitamin B-12) 1,000 MCG TABLET 1000 MCG PO (08:32)
[2023-11-30] MEDS: Multivitamin TABLET 1 TAB PO (08:32)
[2023-11-30] MEDS: Cholecalciferol (Vitamin D3) 25 MCG TABLET PO (08:32)
[2023-11-30] MEDS: Calcium Oyster Shell Elemental 500 MG TABLET PO (08:32)
--- NOTE | 2023-11-30 15:06 | HO.PSYCHPN ---
Subjective Subjective Date of Service: 11/30/23 Reason For Visit: Bipolar disorder Subjective Notes: Conditional Voluntary Interim History: The nursing staff reported the patient was pleasant cooperative she had a headache and took Tylenol. The social and political studies professor reported that she could be discharged most likely next Tuesday. On interview the patient denies new symptoms, waiting for placement. Mental Status Exam Mental Status Exam Patient Appearance: Appropriate Patient Orientation: Person and Situation Level of Consciousness: Awake and Appropriate Patient Behavior: Guarded and Passive Mood Description: Withdrawn Affect Description: Constricted Patient Cognition Impaired: Yes Ability to Follow Directions: Good Speech Pattern: Clear Hallucinations: None Delusions: Not Present Thought Process: Distracted and Slowed Thinking Thought Content: positive for [place] and positive for Poverty of Content Judgement: Fair Diagnostics Vital Signs (24Hr): Vital Signs - 24 hr 11/29/23 20:00 11/30/23 07:56 Temperature 97.9 F 97.7 F Pulse Rate 80 83 Respiratory Rate 18 16 Blood Pressure 132/68 154/81 H Pulse Oximetry 97 100 Oxygen Delivery Method Room Air Room Air BMI result Body Mass Index 24.9 Labs 11/08/23 08:20 Medications Medications Current Medications Acetaminophen (Acetaminophen 325 Mg Tablet) 650 mg PO Q6H PRN PRN Reason: Headache/Pain Mild Scale (1-3) Last Admin: 11/29/23 15:17 Dose: 650 mg Al Hydroxide/Mg Hydroxide (Magnesium Hydrox/Alum Hydrox 30 Ml Oral.Susp) 30 ml PO Q6H PRN PRN Reason: Heartburn/Nausea Albuterol Sulfate (Albuterol Sulfate 90 Mcg 8 Gm Inhaler) 2 puff INHALE Q4H PRN PRN Reason: wheezing Last Admin: 11/27/23 08:54 Dose: 2 puff Buspirone HCl (Buspirone Hcl 10 Mg Tablet) 10 mg PO TID [facility] Last Admin: 11/30/23 08:31 Dose: 10 mg Buspirone HCl (Buspirone Hcl 10 Mg Tablet) 10 mg PO TID PRN PRN Reason: Anxiety Last Admin: 11/25/23 23:05 Dose: 10 mg Calcium Carbonate (Calcium Oyster Shell Elemental 500 Mg Tablet) 500 mg PO DAILY [facility] Last Admin: 11/30/23 08:32 Dose: 500 mg Cyanocobalamin (Cyanocobalamin (Vitamin B-12) 1,000 Mcg Tablet) 1,000 mcg PO DAILY [facility] Last Admin: 11/30/23 08:32 Dose: 1,000 mcg Lidocaine (Lidocaine 4 % Patch Adh..Patch) 2 patch TRANSDERMA DAILY [facility]; Protocol Last Admin: 11/30/23 08:33 Dose: Not Given Loratadine (Loratadine 10 Mg Tablet) 10 mg PO DAILY [facility] Last Admin: 11/30/23 08:32 Dose: 10 mg Magnesium Hydroxide (Milk Of Magnesia 30 Ml Oral.Susp) 30 ml PO DAILY PRN PRN Reason: Constipation Multivitamins/Vitamin C (Multivitamin Tablet) 1 tab PO DAILY [facility] Last Admin: 11/30/23 08:32 Dose: 1 tab Nicotine (Nicotine 21 Mg Patch.Td24) 21 mg TRANSDERMA DAILY PRN PRN Reason: smoking cessation Nicotine Polacrilex (Nicotine Polacrilex 2 Mg Gum) 4 mg BUCCAL Q2H PRN PRN Reason: Nicotine Cravings Olanzapine (Olanzapine 2.5 Mg Tablet) 2.5 mg PO TID PRN PRN Reason: agitation Olanzapine (Olanzapine 2.5 Mg Tablet) 2.5 mg PO BEDTIME PRN PRN Reason: psychosis Trazodone HCl (Trazodone Hcl 25 Mg Halftab) 25 mg PO BEDTIME MRX1 PRN PRN Reason: Insomnia Vitamin D (Cholecalciferol (Vitamin D3) 25 Mcg Tablet) 25 mcg PO DAILY [facility] Last Admin: 11/30/23 08:32 Dose: 25 mcg Zinc Acetate/Diphenhydramine (Diphenhydramine Hcl 2 % Cream 28 Gm Tube) 1 appl TOPICAL QID PRN; Protocol PRN Reason: Itching Last Admin: 11/25/23 21:08 Dose: 1 appl Allergies Allergies Allergy/AdvReac Type Severity Reaction Status Date / Time nut - unspecified Allergy Severe Anaphylaxis Verified 11/12/23 09:54 tree nut Allergy Severe Anaphylaxis Verified 11/12/23 09:53 gluten Allergy Unknown Verified 11/07/23 21:02 ibuprofen Allergy Unknown Verified 11/07/23 21:02 lactose Allergy Unknown Verified 11/07/23 21:02 lamotrigine Allergy Unknown Verified 11/07/23 21:02 Peanut (Legumes) Allergy Unknown Verified 11/07/23 21:02 Assessment & Plan Assessment & Plan (1) Bipolar disorder: Status: Acute Code(s): F31.9 - Bipolar disorder, unspecified (2) Alcohol use disorder in remission: Status: Acute Code(s): F10.91 - Alcohol use, unspecified, in remission (3) Low back pain: Status: Acute Code(s): M54.50 - Low back pain, unspecified Plan Patient adamantly denies manic symptoms by history some periods of agitation disorganization severe anxiety she states she was stable on Paxil for many years this was recently discontinued reportedly she is on BuSpar Patient was well oriented with a clear sensorium very clear in detail oriented Consider Depakote patient might be bipolar 2 might have done well with the combination mood stabilizer an SSRI Patient will need psychiatric follow-up somewhat anxious and circumstantial question hypomania. Hospital course: 11/25 patient refuses Zyprexa which magazine writer offered as a mood stabilizer; she wants Paxil but accepted that magazine writer does not think it is a good idea right now (since not on a mood stabilizer and appears to be hypomanic). 11/26 started Claritin Plan 1. Continue with same treatment. We are encouraging compliance but she does not have insight into her condition 2. The social and political studies professor reported that most likely s at the end of the week Reason for continued inpatient stay Substantial Risk for: inability to function, rapid decompensation and med/psych decompensation Time Spent With Patient Time: Total time managing care of this patient today _20___ minutes.
[2023-11-30] MEDS: Acetaminophen 325 MG TABLET 650 MG PO (16:16)
[2023-11-30 20:00] VITALS: BP 122/63; PULSE 79; RESP 18; TEMP 37; O2SAT 100
[2023-11-30] MEDS: diphenhydrAMINE HCl 2 % Cream 28 GM TUBE 1 APPL TOPICAL (21:09)
[2023-12-01 07:00] VITALS: BMI 24.8
[2023-12-01 08:00] VITALS: BP 137/79; PULSE 83; RESP 18; TEMP 36; O2SAT 100
[2023-12-01] MEDS: Calcium Oyster Shell Elemental 500 MG TABLET PO (08:34)
[2023-12-01] MEDS: Loratadine 10 MG TABLET PO (08:34)
[2023-12-01] MEDS: Cholecalciferol (Vitamin D3) 25 MCG TABLET PO (08:34)
[2023-12-01] MEDS: Cyanocobalamin (Vitamin B-12) 1,000 MCG TABLET 1000 MCG PO (08:34)
[2023-12-01] MEDS: busPIRone HCl 10 MG TABLET PO ×3 (08:35→20:53)
[2023-12-01] MEDS: Lidocaine 4 % Patch ADH..PATCH 2 PATCH TRANSDERMA (08:35)
[2023-12-01] MEDS: Multivitamin TABLET 1 TAB PO (08:35)
--- NOTE | 2023-12-01 12:18 | P.PNPSI_ITS ---
Subjective Subjective Date of Service: 12/01/23 Reason For Visit: Bipolar disorder Subjective Notes: Conditional Voluntary Interim History: The nursing staff reported the patient had been tearful in the afternoon but pleasant and redirectable. She slept 8 hours. The social service assistant reported that she is going to be discharged to remember meals tomorrow. On interview the patient has happy to know that she is going to be discharged pretty soon. No changes in mental status Mental Status Exam Mental Status Exam Patient Appearance: Well Grooomed and Appropriate Patient Orientation: Person and Situation Level of Consciousness: Awake and Appropriate Patient Behavior: Guarded and Passive Mood Description: Calm Affect Description: Constricted Patient Cognition Impaired: Yes Ability to Follow Directions: Good Speech Pattern: Clear Hallucinations: None Delusions: Not Present Thought Process: Distracted and Slowed Thinking Thought Content: positive for [place] and positive for Poverty of Content Judgement: Fair Diagnostics Vital Signs (24Hr): Vital Signs - 24 hr 11/30/23 20:00 12/01/23 08:00 Temperature 98.6 F 96.8 F Pulse Rate 79 83 Respiratory Rate 18 18 Blood Pressure 122/63 137/79 Pulse Oximetry 100 100 Oxygen Delivery Method Room Air Room Air BMI result Body Mass Index 24.9 Labs 11/08/23 08:20 Medications Medications Current Medications Acetaminophen (Acetaminophen 325 Mg Tablet) 650 mg PO Q6H PRN PRN Reason: Headache/Pain Mild Scale (1-3) Last Admin: 11/30/23 16:16 Dose: 650 mg Al Hydroxide/Mg Hydroxide (Magnesium Hydrox/Alum Hydrox 30 Ml Oral.Susp) 30 ml PO Q6H PRN PRN Reason: Heartburn/Nausea Albuterol Sulfate (Albuterol Sulfate 90 Mcg 8 Gm Inhaler) 2 puff INHALE Q4H PRN PRN Reason: wheezing Last Admin: 11/27/23 08:54 Dose: 2 puff Buspirone HCl (Buspirone Hcl 10 Mg Tablet) 10 mg PO TID [facility] Last Admin: 12/01/23 08:35 Dose: 10 mg Buspirone HCl (Buspirone Hcl 10 Mg Tablet) 10 mg PO TID PRN PRN Reason: Anxiety Last Admin: 11/25/23 23:05 Dose: 10 mg Calcium Carbonate (Calcium Oyster Shell Elemental 500 Mg Tablet) 500 mg PO DAILY [facility] Last Admin: 12/01/23 08:34 Dose: 500 mg Cyanocobalamin (Cyanocobalamin (Vitamin B-12) 1,000 Mcg Tablet) 1,000 mcg PO DAILY [facility] Last Admin: 12/01/23 08:34 Dose: 1,000 mcg Lidocaine (Lidocaine 4 % Patch Adh..Patch) 2 patch TRANSDERMA DAILY [facility]; Protocol Last Admin: 12/01/23 08:35 Dose: 2 patch Loratadine (Loratadine 10 Mg Tablet) 10 mg PO DAILY [facility] Last Admin: 12/01/23 08:34 Dose: 10 mg Magnesium Hydroxide (Milk Of Magnesia 30 Ml Oral.Susp) 30 ml PO DAILY PRN PRN Reason: Constipation Multivitamins/Vitamin C (Multivitamin Tablet) 1 tab PO DAILY [facility] Last Admin: 12/01/23 08:35 Dose: 1 tab Nicotine (Nicotine 21 Mg Patch.Td24) 21 mg TRANSDERMA DAILY PRN PRN Reason: smoking cessation Nicotine Polacrilex (Nicotine Polacrilex 2 Mg Gum) 4 mg BUCCAL Q2H PRN PRN Reason: Nicotine Cravings Olanzapine (Olanzapine 2.5 Mg Tablet) 2.5 mg PO TID PRN PRN Reason: agitation Olanzapine (Olanzapine 2.5 Mg Tablet) 2.5 mg PO BEDTIME PRN PRN Reason: psychosis Trazodone HCl (Trazodone Hcl 25 Mg Halftab) 25 mg PO BEDTIME MRX1 PRN PRN Reason: Insomnia Vitamin D (Cholecalciferol (Vitamin D3) 25 Mcg Tablet) 25 mcg PO DAILY [facility] Last Admin: 12/01/23 08:34 Dose: 25 mcg Zinc Acetate/Diphenhydramine (Diphenhydramine Hcl 2 % Cream 28 Gm Tube) 1 appl TOPICAL QID PRN; Protocol PRN Reason: Itching Last Admin: 11/30/23 21:09 Dose: 1 appl Allergies Allergies Allergy/AdvReac Type Severity Reaction Status Date / Time nut - unspecified Allergy Severe Anaphylaxis Verified 11/12/23 09:54 tree nut Allergy Severe Anaphylaxis Verified 11/12/23 09:53 gluten Allergy Unknown Verified 11/07/23 21:02 ibuprofen Allergy Unknown Verified 11/07/23 21:02 lactose Allergy Unknown Verified 11/07/23 21:02 lamotrigine Allergy Unknown Verified 11/07/23 21:02 Peanut (Legumes) Allergy Unknown Verified 11/07/23 21:02 Assessment & Plan Assessment & Plan (1) Bipolar disorder: Status: Acute Code(s): F31.9 - Bipolar disorder, unspecified (2) Alcohol use disorder in remission: Status: Acute Code(s): F10.91 - Alcohol use, unspecified, in remission (3) Low back pain: Status: Acute Code(s): M54.50 - Low back pain, unspecified Plan Patient adamantly denies manic symptoms by history some periods of agitation disorganization severe anxiety she states she was stable on Paxil for many years this was recently discontinued reportedly she is on BuSpar Patient was well oriented with a clear sensorium very clear in detail oriented Consider Depakote patient might be bipolar 2 might have done well with the combination mood stabilizer an SSRI Patient will need psychiatric follow-up somewhat anxious and circumstantial question hypomania. Hospital course: 11/25 patient refuses Zyprexa which display card writer offered as a mood stabilizer; she wants Paxil but accepted that display card writer does not think it is a good idea right now (since not on a mood stabilizer and appears to be hypomanic). 11/26 started Claritin Plan 1. Continue with same treatment. We are encouraging compliance but she does not have insight into her condition 2. The social service assistant reported that most likely s at the end of the week Reason for continued inpatient stay Substantial Risk for: inability to function, rapid decompensation and med/psych decompensation Time Spent With Patient Time: Total time managing care of this patient today __20__ minutes.
--- NOTE | 2023-12-01 15:07 | PM.PSYDC ---
DS: Providers Provider Date of Service: 12/01/23 Date of admission: 11/07/23 19:32 Date of discharge: 12/02/23 Primary care physician: Unknown Physician Consults: 11/07/23 21:38 Consult to Hospitalist Routine Comment: Consulting Provider: Hospitalist Reason For Exam: admission physical DS: Diagnosis Discharge Diagnosis (1) Bipolar disorder: Status: Acute (2) Alcohol use disorder in remission: Status: Acute (3) Low back pain: Status: Acute DS: Medications Discharge Medications Home Medications: Home Medications ?Medication ?Instructions ?Recorded ?Confirmed acetaminophen 500 mg tablet 500 mg PO Q6H PRN pain 11/07/23 11/07/23 olanzapine 2.5 mg tablet 1.25 mg PO BEDTIME 11/07/23 11/07/23 paroxetine HCl 30 mg tablet (Paxil) 30 mg PO DAILY 11/07/23 11/07/23 Previous Rx's ?Medication ?Instructions ?Recorded albuterol sulfate 90 mcg/actuation 2 puff inhalation Q4H PRN wheezing 11/30/23 aerosol inhaler (Ventolin HFA) 30 days #1 inhaler buspirone 10 mg tablet 10 mg PO TID 30 days #90 tabs 11/30/23 calcium carbonate (Oyster Shell 500 mg PO DAILY 30 days #30 tabs 11/30/23 Calcium 500) cetirizine 10 mg tablet 10 mg PO DAILY 30 days #30 tabs 11/30/23 cholecalciferol (vitamin D3) 25 25 mcg PO DAILY #30 tabs 11/30/23 mcg (1,000 unit) tablet cyanocobalamin (vitamin B-12) 1,000 mcg PO DAILY 30 days #30 tabs 11/30/23 1,000 mcg tablet diphenhydramine-zinc acetate 2 1 appl topical QID PRN Itching 30 11/30/23 %-0.1 % topical cream (Banophen days #28 grams Anti-Itch) lidocaine 4 % topical patch 2 patch transdermal DAILY 30 days 11/30/23 (Lidocaine Pain Relief) #30 ea multivitamin (Daily-Mary Ann tablet) 1 tab PO DAILY 30 days #30 tabs 11/30/23 olanzapine 2.5 mg tablet 2.5 mg PO BEDTIME PRN psychosis 30 11/30/23 days #30 tabs Mental Status Exam Mental Status Exam Patient Appearance: Well Grooomed and Appropriate Patient Orientation: Person and Situation Level of Consciousness: Awake and Appropriate Patient Behavior: Guarded and Passive Mood Description: Calm Affect Description: Labile Patient Cognition Impaired: Yes Ability to Follow Directions: Good Speech Pattern: Clear Hallucinations: None Delusions: Not Present Thought Process: Distracted Thought Content: positive for [place] Judgement: Fair DS: Summary Hospital Course Hospital Course: The patient is a 71-year-old female with a past history of bipolar disorder who was initially seen after being discharged from another facility 24 hours before at another hospital. She was assessed by the crisis team over there and transferred here for psychiatric stabilization. Please see the HPI of the admission note for further details. On admission the patient adamantly denied suicidal or homicidal ideation it was clear that she had hypomanic symptoms elicited by flight of ideas, increased speech and elated mood but she was able to be redirected with no safety concerns. I offer her olanzapine and she takes it sparingly. She was asking for Paxil that her previous prescriber gave to her. I tried to explain him that it was contraindicated in her hypomanic state. Even though the patient did not have too much insight into her condition but she was safe. We discussed at length risks, benefits, side-effects and alternatives and she wanted to take only BuSpar for anxiety and and Zyprexa as a p.r.n.. Since the patient was fairly stable even though that she had some hypomanic symptoms we start working on discharge planning. Eventually the social work manager could find him on assisted living facility that accepted her. Since there were no safety concerns discharge planning was discussed. Time spent discussing smoking cessation with patient: 3 to 10 minutes Status at Discharge Cognitive/behavioral status at discharge: At baseline Functional status at discharge: independent ambulation Overall status at discharge: patient is back to baseline Time Spent with Patient Time attestation: Total time managing care of this patient today __30__ minutes. Discharge Plan Discharge Patient Disposition: [facility] Discharge Diagnosis: Bipolar disorder Homelessness Referrals: Dr Dori Gray [facility] [Other] - 12/14/23 2:00 pm (Your next virtual appointment with your PCP is scheduled for 12/14/23 at 2PM.) [facility] [Other] - 12/02/23 (Transfer to [facility] on 12/02/23.) [facility] [Other] - 12/03/23 4:00 pm (Your next appointment with [facility] for therapy is 12/03/23 at 4pm. ) Discharge Medications: New olanzapine 2.5 mg Tablet 2.5 mg PO BEDTIME PRN (Reason: psychosis) 30 Days Qty: 30 0RF calcium carbonate [Oyster Shell Calcium 500] 500 mg calcium (1,250 mg) Tablet 500 mg PO DAILY 30 Days Qty: 30 0RF Banophen Anti-Itch 2-0.1 % Cream 1 appl topical QID PRN (Reason: Itching) 30 Days Qty: 28 0RF Protocol: Apply to: Apply to: affected areas lidocaine [Lidocaine Pain Relief] 4 % Adhesive Patch,Medicated 2 patch transdermal DAILY 30 Days Qty: 30 0RF Protocol: Apply to: Apply to: back multivitamin [Daily-Mary Ann] Tablet 1 tab PO DAILY 30 Days Qty: 30 0RF Continued cetirizine 10 mg tablet 10 mg PO DAILY 30 Days Qty: 30 0RF cyanocobalamin (vitamin B-12) 1,000 mcg tablet 1,000 mcg PO DAILY 30 Days Qty: 30 0RF acetaminophen 500 mg tablet 500 mg PO Q6H PRN (Reason: pain) Qty: 60 0RF buspirone 10 mg tablet 10 mg PO TID 30 Days Qty: 90 0RF albuterol sulfate [Ventolin HFA] 90 mcg/actuation HFA aerosol inhaler 2 puff INHALATION Q4H PRN (Reason: wheezing) 30 Days Qty: 1 0RF cholecalciferol (vitamin D3) 25 mcg (1,000 unit) tablet 25 mcg PO DAILY Qty: 30 0RF Discontinued olanzapine 2.5 mg tablet 1.25 mg PO BEDTIME paroxetine HCl [Paxil] 30 mg tablet 30 mg PO DAILY Discharge Orders: Discharge Order (Routine); Ordered 12/02/23 Ordered By: Edi Bernal Diet: Advance to usual diet Activity on Discharge: As tolerated Stand Alone Forms: Patient Portal Discharge page Print Language: Romanian Care Plan Goals: Care plan goals achieved in this admission Health Concerns: Continue treatment with primary care physician and other outpatient providers Plan of Treatment: Continue with outpatient psychiatric services Assessment: Elderly female with a past history of bipolar disorder with limited insight into her condition admitted for exacerbation of rebekah but she was safe and her panic/hypomanic symptoms were very mild. She was chronically homeless and she was able to find a new facility. At this moment ready to be discharged to the community no active safety concerns
[2023-12-01] MEDS: diphenhydrAMINE HCl 2 % Cream 28 GM TUBE 1 APPL TOPICAL (15:21)
[2023-12-01 20:00] VITALS: BP 137/74; PULSE 96; RESP 16; TEMP 36; O2SAT 98
[2023-12-02 08:00] VITALS: BP 132/75; PULSE 86; RESP 18; TEMP 36; O2SAT 99
[2023-12-02] MEDS: Lidocaine 4 % Patch ADH..PATCH 2 PATCH TRANSDERMA (09:37)
[2023-12-02] MEDS: Multivitamin TABLET 1 TAB PO (09:39)
[2023-12-02] MEDS: Calcium Oyster Shell Elemental 500 MG TABLET PO (09:39)
[2023-12-02] MEDS: Loratadine 10 MG TABLET PO (09:39)
[2023-12-02] MEDS: busPIRone HCl 10 MG TABLET PO (09:39)
[2023-12-02] MEDS: Cyanocobalamin (Vitamin B-12) 1,000 MCG TABLET 1000 MCG PO (09:40)
[2023-12-02] MEDS: Cholecalciferol (Vitamin D3) 25 MCG TABLET PO (09:40)
[2023-12-02] MEDS: Acetaminophen 325 MG TABLET 650 MG PO (12:54)
--- NOTE | 2023-12-02 13:22 | PC.NURSE ---
Pt aware of discharge, reported readiness for D/C. D/C instructions given to the patient, Norma verbalized understanding of D/C instructions. Took belongings with her. Edi from [facility] took pt's suitcase with her tablet, flip phone, white and black chargers and clothes. Norma left the unit at 13:00.
== END 2023-12-02 13:00 | DRG 885 ==
PROVIDERS: Psychiatry & Neurology Psychiatry; Admitting Provider Psychiatry & Neurology Psychiatry; Visit Provider Psychiatry & Neurology Psychiatry
DX: F31.9 Bipolar disorder, unspecified (principal); Z59.02 Unsheltered homelessness; F10.91 Alcohol use, unspecified, in remission; N18.30 Chronic kidney disease, stage 3 unspecified; M54.50 Low back pain, unspecified; J44.9 Chronic obstructive pulmonary disease, unspecified; Z75.1 Person awaiting admission to adequate facility elsewhere; Z62.810 Personal history of physical and sexual abuse in childhood; Z87.891 Personal history of nicotine dependence; Z79.899 Other long term (current) drug therapy
CPT/HCPCS: 36415; 80053; 80061; 83036; 84443

== ENCOUNTER → 2023-11-07 19:32 | Outpatient (BNV) | payer MEDICARE, MEDICAID, SELFPAY | PROVIDERS: Admitting Provider Psychiatry & Neurology Psychiatry; Visit Provider Psychiatry & Neurology Psychiatry | DX: F31.13 Bipolar disorder, current episode manic without psychotic features, severe (principal); F10.91 Alcohol use, unspecified, in remission; M54.50 Low back pain, unspecified | CPT/HCPCS: 90792; 99231; 99232; 99238 ==

== ENCOUNTER → 2023-11-07 19:32 | Outpatient (BNV) | payer MEDICARE, MEDICAID, SELFPAY | PROVIDERS: Admitting Provider Psychiatry & Neurology Psychiatry; Visit Provider Psychiatry & Neurology Psychiatry | DX: F31.13 Bipolar disorder, current episode manic without psychotic features, severe (principal); F10.91 Alcohol use, unspecified, in remission; M54.50 Low back pain, unspecified | CPT/HCPCS: 99231 ==

== ENCOUNTER → 2023-11-07 19:32 | Outpatient (BNV) | payer MEDICARE, MEDICAID, SELFPAY | PROVIDERS: Admitting Provider Psychiatry & Neurology Psychiatry; Visit Provider Physician Assistant | DX: Z00.00 Encounter for general adult medical examination without abnormal findings (principal) | CPT/HCPCS: 99429 ==

== ENCOUNTER 2023-12-13 05:04 | Emergency (ER) | payer MEDICARE, MEDICAID, SELFPAY ==
[2023-12-13] VITALS (8 sets, daily range): BP systolic 101–145; BP diastolic 43–60; PULSE 54–66; RESP 14–22; TEMP 36.3–37; O2SAT 94–100; BMI 24.9
--- NOTE | ~2023-12-13 | CT_ITS ---
EXAMINATION: CT CHEST WITH CONTRAST CLINICAL INFORMATION: Abnormal chest x-ray , chest pain COMPARISON: None available. TECHNIQUE: Multidetector volumetric CT imaging of the chest was obtained after the administration of 50 mL of Omnipaque 350 intravenous contrast without immediate adverse reactions. Axial MIP volume rendering provided. Sagittal and coronal reformatted images were obtained. This CT examination was performed using dose optimization techniques as appropriate, variously including the following: *Automated exposure control *Adjustment of mA and/or kV according to patient size (this includes techniques or standardized protocols for targeted exams where dose is matched to indication/reason for exam; i.e. extremities or head) *Use of iterative reconstruction technique DLP: 202 mGy-cm FINDINGS: LUNGS: Upper lobe predominant interlobular septal thickening associated with groundglass. To lesser extent, there is additional subpleural interlobular septal thickening along the superior segment of bilateral lower lobes posteriorly. No organized airspace consolidation.. MEDIASTINUM: No mediastinal lymphadenopathy. Heart normal in size without pericardial effusion. No coronary calcifications. PLEURA: There is no pleural effusion. No pleural mass or thickening. AXILLA: No lymphadenopathy. UPPER ABDOMEN: Small hiatal hernia OSSEOUS STRUCTURES: Unremarkable. CT/CT chest w IV con IMPRESSION: Interstitial findings predominantly within the upper lobes, which are nonspecific. Can be seen in the setting of an infectious or inflammatory etiology. No organized airspace consolidation. Fleischner guidelines were followed. Electronically signed by: Bryson Avnia DO 12/13/2023 01:49 PM EDT Workstation: [id number]
--- NOTE | ~2023-12-13 | XR_ITS ---
EXAMINATION: XR CHEST 1 VIEW CLINICAL INFORMATION: Chest pain. COMPARISON: None TECHNIQUE: Frontal view of the chest was obtained. FINDINGS: No significant acute abnormality is noted involving the heart, lungs, mediastinum, bony thorax or soft tissues. There may be an old healed left humeral fracture. Biapical pleural-parenchymal scarring is present. XR/XR chest 1V IMPRESSION: No acute intrathoracic disease Electronically signed by: Eugenio Moore MD 12/13/2023 11:29 AM EDT
--- NOTE | 2023-12-13 05:13 | ECG_ITS ---
Test Reason : CHESTPAIN Blood Pressure : / mmHG Vent. Rate : 063 BPM Atrial Rate : 063 BPM P-R Int : 184 ms QRS Dur : 080 ms QT Int : 438 ms P-R-T Axes : 034 012 004 degrees QTc Int : 448 ms Normal sinus rhythm Normal ECG No previous ECGs available Referred By: Generic ED Physician Electronically Signed By:Abiodun Sandoval
[2023-12-13 05:33] LABS: MANUAL DIFF FLAG NO
[2023-12-13 05:34] LABS: Basophils Percent Auto 0.3 % (0-2); Eosinophils Absolute Auto 0.1 X10*3/uL (0.0-0.4); Eosinophils Percent Auto 3.2 % (0-4); Hematocrit 36.6 % (37.0-47.0); Hemoglobin 12.6 g/dl (12.0-16.0); Imm Gran Abs Auto 0.01 X10*3/uL (0.00-0.03); Imm Gran Pct Auto 0.3 % (0.0-0.4); Lymphocytes Absolute Auto 1.2 X10*3/uL (1.2-4.9); Mean Corpuscular HGB Conc 34.4 g/dl (31.0-35.0); Mean Corpuscular Volume 87.1 fL (80.0-98.0); Mean Platelet Volume 9.9 fL (9.4-12.3); Monocytes Absolute Auto 0.3 X10*3/uL (0.1-1.2); Monocytes Percent Auto 9.7 % (2-11); Neutrophils Absolute Auto 1.9 x10*3/uL (2.0-8.3); Neutrophils Percent Auto 53.5 % (45-73); Platelet Count 209 X10*3/uL (160-400); Red Cell Distribution Width 13.8 % (11.0-16.0); White Blood Count 3.5 X10*3/uL (4.8-10.8)
[2023-12-13 05:45] LABS: Alanine Aminotransferase 18 U/L (0-31); Alkaline Phosphatase 65 U/L (39-117); Anion Gap 14 (12-20); Aspartate Amino Transferase 27 U/L (5-31); Bilirubin Total 0.5 mg/dL (0.0-1.0); Blood Urea Nitrogen 13 mg/dL (9-16); Calcium 9.1 mg/dL (8.4-10.2); Carbon Dioxide 23 mmol/L (22-29); Chloride 110 mmol/L (96-108); Creatinine Clr Calc Pharmacy 54.6; Estimated Glomerular Filt Rate > 60; Glucose Random 100 mg/dL (60-115); Potassium 3.7 mmol/L (3.3-5.1); Sodium 143 mmol/L (135-145); Total Protein 6.3 g/dL (6.5-8.0)
[2023-12-13 05:51] LABS: Troponin-I High Sensitivity 2.9 ng/L (<3.5-17.0)
--- NOTE | 2023-12-13 07:01 | ED.CHESTPAIN ---
HPI - Chest Pain General Chief Complaint: Chest Pain Stated Complaint: cp sob Time Seen by Provider: 12/13/23 06:33 Source: patient Mode of arrival: ambulatory Limitations: no limitations History of Present Illness ED Provider: Sara Dickey PA-C HPI narrative: 73-year-old female with history of bipolar disorder, alcohol use disorder in remission, asthma/COPD, low back pain who presents to the ER from her assisted living for evaluation of an episode of nonradiating substernal chest pain that started at 04:00. Patient reports she woke up at 02:00, could not fall back asleep so she did 2 hours of prayer. After she was done and went to go back to sleep, she developed a heavy numbness in the middle of her chest, described as an 8/10. Pain did not radiate and was not associated with any shortness of breath, diaphoresis or nausea. She states she got increasingly anxious and nervous about the pain. She was not short of breath or coughing but decided to try her inhaler. No resolution of the pain so she called 911. He states the pain was worse with touching the middle of her chest as well as taking big deep breaths. EMS administered aspirin and sublingual nitroglycerin. The pain slowly improved and resolved upon arrival to the ER. No history of similar episodes. No known history of coronary disease MD complaint: chest pain Pertinent past history: asthma Onset (ago): hour(s) Timing of current episode: episodic Onset: during rest Pain location: substernal Pain radiation: none Severity: severe Pain scale (0-10): 8 Quality: heaviness Relieving factors: nitroglycerin and rest Exacerbating factors: nothing Associated symptoms: other (Anxiety) Treatment prior to arrival: aspirin and nitroglycerin Risk Factors Coronary artery disease risk factors: none Thoracic aortic dissection risk factors: none Related Data Previous Rx's ?Medication ?Instructions ?Recorded acetaminophen 500 mg tablet 500 mg PO Q6H PRN pain #60 tabs 11/30/23 albuterol sulfate 90 mcg/actuation 2 puff inhalation Q4H PRN wheezing 11/30/23 aerosol inhaler (Ventolin HFA) 30 days #1 inhaler buspirone 10 mg tablet 10 mg PO TID 30 days #90 tabs 11/30/23 calcium carbonate (Oyster Shell 500 mg PO DAILY 30 days #30 tabs 11/30/23 Calcium 500) cetirizine 10 mg tablet 10 mg PO DAILY 30 days #30 tabs 11/30/23 cholecalciferol (vitamin D3) 25 25 mcg PO DAILY #30 tabs 11/30/23 mcg (1,000 unit) tablet cyanocobalamin (vitamin B-12) 1,000 mcg PO DAILY 30 days #30 tabs 11/30/23 1,000 mcg tablet diphenhydramine-zinc acetate 2 1 appl topical QID PRN Itching 30 11/30/23 %-0.1 % topical cream (Banophen days #28 grams Anti-Itch) lidocaine 4 % topical patch 2 patch transdermal DAILY 30 days 11/30/23 (Lidocaine Pain Relief) #30 ea multivitamin (Daily-Mary Ann tablet) 1 tab PO DAILY 30 days #30 tabs 11/30/23 olanzapine 2.5 mg tablet 2.5 mg PO BEDTIME PRN psychosis 30 11/30/23 days #30 tabs azithromycin 250 mg tablet See Rx Instructions PO .COMPLEX #6 12/13/23 (Zithromax Z-Enrique) tabs Allergies Allergy/AdvReac Type Severity Reaction Status Date / Time nut - unspecified Allergy Severe Anaphylaxis Verified 12/13/23 05:17 tree nut Allergy Severe Anaphylaxis Verified 12/13/23 05:17 gluten Allergy Unknown Verified 12/13/23 05:17 ibuprofen Allergy Unknown Verified 12/13/23 05:17 lactose Allergy Unknown Verified 12/13/23 05:17 lamotrigine Allergy Unknown Verified 12/13/23 05:17 Peanut (Legumes) Allergy Unknown Verified 12/13/23 05:17 [facility] Past Medical History Medical History Asthma-COPD overlap syndrome Social History Social History Household Members: Other Household Members Other:: homeless at this time Housing: Homeless Do you presently have visiting nurse or other home services: No Patient Tobacco Use Status: Former Tobacco user Tobacco use type: Cigarette Cigarettes Per Day: 10 Smoked in Last 30 Days: No e-Cigarette/Vaping Use: Never Used Second Hand Smoke Exposure: No Use of substances other than those prescribed or required for medical reasons: No Advance Directives: No Advance Directives Information Provided: No Do you have a plan to hurt others: No Plan service: No Physical Exam Vital Signs: Vital Signs: Last Vital Signs Temp 98.6 F 12/13/23 14:12 Pulse 66 12/13/23 14:12 Resp 14 12/13/23 14:12 BP 123/48 L 12/13/23 14:12 Pulse Ox 98 12/13/23 14:12 O2 Del Method Room Air 12/13/23 14:12 BMI result Body Mass Index 24.9 Appearance: Alert. Oriented X3. No acute distress. Head: normocephalic, atraumatic. Eyes: Pupils equal, round and reactive to light. ENT: Pharynx normal. No tonsillar swelling or exudate. Neck: Normal inspection. Neck supple. CVS: Normal heart rate and rhythm. Pulses normal. Respiratory: No respiratory distress. Breath sounds normal. Mild tenderness to sternal region Abdomen: Soft and nontender. +BS x4 Skin: Skin warm and dry. Normal skin color. Normal skin turgor. No rashes. Extremities: No lower extremity edema. No joint swelling. Neuro/psych: Oriented X 3. No motor deficit. No sensory deficit. CN II-XII intact. Normal speech and cognition. Medications Administered Discontinued Medications Generic Name Dose Route Start Last Admin Trade Name Freq PRN Reason Stop Dose Admin Iohexol 100 ml 12/13/23 12:40 12/13/23 12:40 Iohexol 350 Mg/Ml 100 Ml Infus..Btl IV 12/13/23 12:41 70 ml ONCE ONE Administration Medical Decision Making Medical Decision Making MDM Narrative: 73-year-old female with history of bipolar disorder, alcohol use disorder in remission, asthma/COPD, low back pain who presents to the ER from her assisted living for evaluation of an episode of nonradiating substernal chest pain that started at 04:00 after praying. No other associated symptoms other than anxiety that developed after the pain started. Patient received aspirin and nitroglycerin. Slow resolution of the symptoms and she feels well now. EKG without ischemic changes. Troponin 1st troponin is negative. Lab work is unremarkable. She remained chest pain-free while in the ER. Second troponin is negative. Low suspicion for cardiac etiology Chest x-ray read from on-site radiologist's reading a apical mass requiring CT scan of the chest which was ordered. CT scan of the chest was showing interstitial opacities in the apices, non specific and could be infectious versus inflammatory. No spiculated lung nodules noted. Results of the CT scan were discussed with the patient. Will prescribe Z-Enrique and have her follow-up with her primary care doctor for repeat imaging in the future. At this time she remained chest pain-free and feels well. Tolerating p.o. and did not have any recurrence of her chest pain. Stable for discharge back to her assisted living. Differential Diagnosis Differential Diagnoses: The differential diagnosis associated with the presentation includes anxiety, costochondritis, ACS, PE, myocarditis, pericarditis, PNA, lung cancer Admission/Observation Consideration of admission/observation: Escalation of care including admission/observation considered Lab Data MDM Lab Attestation statement: I reviewed the patient's lab results. Mild leukopenia and anemia, no major metabolic derangement, negative troponin x2 12/13/23 05:27 12/13/23 05:27 Labs: Lab Results 12/13/23 12/13/23 Range/Units 05:27 09:01 WBC 3.5 L (4.8-10.8) X10*3/uL RBC 4.20 (4.20-5.50) X10*6/uL Hgb 12.6 (12.0-16.0) g/dl Hct 36.6 L (37.0-47.0) % MCV 87.1 (80.0-98.0) fL MCH 30.0 (27.0-33.0) pg MCHC 34.4 (31.0-35.0) g/dl RDW 13.8 (11.0-16.0) % Plt Count 209 (160-400) X10*3/uL MPV 9.9 (9.4-12.3) fL Immature Gran % (Auto) 0.3 (0.0-0.4) % Neut % (Auto) 53.5 (45-73) % Lymph % (Auto) 33.0 (20-40) % Bailey % (Auto) 9.7 (2-11) % Eos % (Auto) 3.2 (0-4) % Baso % (Auto) 0.3 (0-2) % Lymph # (Auto) 1.2 (1.2-4.9) X10*3/uL Bailey # (Auto) 0.3 (0.1-1.2) X10*3/uL Eos # (Auto) 0.1 (0.0-0.4) X10*3/uL Baso # (Auto) 0.0 (0.0-0.2) X10*3/uL Abs Immat Gran (auto) 0.01 (0.00-0.03) X10*3/uL Absolute Neuts (auto) 1.9 L (2.0-8.3) x10*3/uL Absolute Nucleated RBC 0.000 (0.0-0.012) X10*3/uL Nucleated RBC % (auto) 0.0 (0.0-0.2) /100WBC Sodium 143 (135-145) mmol/L Potassium 3.7 (3.3-5.1) mmol/L Chloride 110 H (96-108) mmol/L Carbon Dioxide 23 (22-29) mmol/L Anion Gap 14 (12-20) BUN 13 (9-16) mg/dL Creatinine 0.77 (0.5-1.4) mg/dL Estim Creat Clear Calc 54.6 Estimated GFR > 60 Random Glucose 100 (60-115) mg/dL Calcium 9.1 (8.4-10.2) mg/dL Total Bilirubin 0.5 (0.0-1.0) mg/dL AST 27 (5-31) U/L ALT 18 (0-31) U/L Alkaline Phosphatase 65 (39-117) U/L Troponin I High Sens 2.9 < 2.7 (<3.5-17.0) ng/L Total Protein 6.3 L (6.5-8.0) g/dL Albumin 4.0 (3.5-5.0) g/dL Independent Interpretation I performed an independent interpretation of an: EKG, Plain X-Ray and CT Scan Interpretation: ekg with normal sinus rhythm, ventricular rate 63 beats per minute, normal IL interval, normal QTC, no ST segment elevations or depressions. Chest x-ray with ground-glass opacities in the bilateral upper lobes, no focal opacity Chest x-ray with right upper lobe opacity, could be scarring could be a mass Radiology Impression Discussion of test interpretation with radiology: I have reviewed the radiologist's reading. Independent Historian Clinical information obtained from an independent historian. History obtained from or confirmed by: EMS External Record Review External record reviewed: Inpatient record, Outpatient record and Prior outpatient labs Prescription Management I considered prescription management with: Pain Medication Chronic Conditions Patient?s care impacted by: Other (bipolar disorder) Social Determinants Patient?s care significantly limited by Social Determinants of Health including: Problems related to primary support group Scores Heart Score History: -1- moderately suspicious ECG: -0- normal Age: -2- > or = 65 Risk factory: -0- no risk factors known Troponin: -0- < or = normal limit Score: 3 Risk: 1.7% Critical Care Time Critical Care Time Critical Care Time: No Discharge Plan Discharge Clinical Impression: Chest pain Qualifiers: Chest pain type: unspecified Qualified Code(s): R07.9 - Chest pain, unspecified Patient Disposition: Home, Self-Care Instructions: Chest Pain (DC) Additional Instructions: Your lab workup and EKG today were reassuring Your CT scan showed nonspecific interstitial opacities which could be due to inflammation or infeciton Take the prescribed antibiotics as directed, complete the entire course and do not miss any doses Recommend following up with your primary care doctor If you develop new or worsening symptoms call 911 or come back to the ER for further evaluation. Prescriptions: New azithromycin [Zithromax Z-Enrique] 250 mg tablet See Rx Instructions .ROUTE .COMPLEX Qty: 6 0RF Rx Instructions: take 500 mg today (day 1), then 250 mg for 4 days (days 2-5) No Action olanzapine 2.5 mg Tablet 2.5 mg PO BEDTIME PRN (Reason: psychosis) 30 Days Qty: 30 0RF calcium carbonate [Oyster Shell Calcium 500] 500 mg calcium (1,250 mg) Tablet 500 mg PO DAILY 30 Days Qty: 30 0RF Banophen Anti-Itch 2-0.1 % Cream 1 appl topical QID PRN (Reason: Itching) 30 Days Qty: 28 0RF Protocol: Apply to: Apply to: affected areas lidocaine [Lidocaine Pain Relief] 4 % Adhesive Patch,Medicated 2 patch transdermal DAILY 30 Days Qty: 30 0RF Protocol: Apply to: Apply to: back multivitamin [Daily-Mary Ann] Tablet 1 tab PO DAILY 30 Days Qty: 30 0RF cetirizine 10 mg tablet 10 mg PO DAILY 30 Days Qty: 30 0RF cyanocobalamin (vitamin B-12) 1,000 mcg tablet 1,000 mcg PO DAILY 30 Days Qty: 30 0RF acetaminophen 500 mg tablet 500 mg PO Q6H PRN (Reason: pain) Qty: 60 0RF buspirone 10 mg tablet 10 mg PO TID 30 Days Qty: 90 0RF albuterol sulfate [Ventolin HFA] 90 mcg/actuation HFA aerosol inhaler 2 puff INHALATION Q4H PRN (Reason: wheezing) 30 Days Qty: 1 0RF cholecalciferol (vitamin D3) 25 mcg (1,000 unit) tablet 25 mcg PO DAILY Qty: 30 0RF Print Language: Vietnamese
[2023-12-13 09:30] LABS: Troponin-I High Sensitivity < 2.7 ng/L (<3.5-17.0)
[2023-12-13] MEDS: iohexoL 350 MG/ML 100 ML INFUS..BTL IV (12:40)
== END 2023-12-13 14:42 | disposition home or self-care (01) ==
PROVIDERS: Physician Assistant; Emergency Provider Emergency Medicine
DX: R07.89 Other chest pain (principal); R06.02 Shortness of breath; Z79.899 Other long term (current) drug therapy
CPT/HCPCS: 36415; 71045; 71260; 80053; 84484; 85025; 93005; 99284; 99285; Q9967

== ENCOUNTER → 2023-12-13 05:13 | Outpatient (BNV) | payer MEDICARE, MEDICAID, SELFPAY | PROVIDERS: Emergency Provider Emergency Medicine; Visit Provider Internal Medicine Cardiovascular Disease | DX: R07.9 Chest pain, unspecified (principal) | CPT/HCPCS: 93010 ==

== ENCOUNTER 2024-01-11 13:51 | Outpatient (REF) | payer MEDICARE, MEDICAID, SELFPAY ==
--- NOTE | ~2024-01-11 | MM_ITS ---
EXAMINATION: BONE DENSITOMETRY CLINICAL INDICATION: Osteoporosis. COMPARISON: This is the patient's baseline examination. TECHNIQUE: Using a [employer] DXA System (software version: 13.1) manufactured by [employer], dual-energy x-ray absorptiometry was performed of the lumbar spine and right hip. The images are of good technical quality. Summary results are attached. FINDINGS: RIGHT FEMUR, NECK: BMD 0.655 g/cm2, Z-score -0.8, T-score -2.8, osteoporosis. RIGHT FEMUR, TOTAL: BMD 0.671 g/cm2, Z-score -0.8, T-score -2.7, osteoporosis. AP SPINE L1-L4: BMD 1.068 g/cm2, Z-score 0.9, T-score -0.9, normal. IDENTIFIED RISK FACTORS: Height loss, history of fracture (adult), menopause, osteoporosis. HISTORY OF FRACTURE: Hip, shoulder, wrist. MEDICATIONS: Calcium supplements or multivitamin, vitamin D. MM/XR DEXA axial skeleton IMPRESSION: 1. DIAGNOSIS: Osteoporosis based on the lowest T-score value of -2.8 in the femoral neck applying World Health Organization criteria. 2. 10-YEAR FRACTURE RISK PREDICTION, FRAX: According to the guidelines, FRAX calculation should only be performed on patients in the osteopenia bone density category. Therefore, FRAX was not performed on this patient. 3. Treatment Recommendations: NOF guidelines recommend consideration for treatment in postmenopausal women and men age 50 and older presenting with the following: -A hip or vertebral (clinical or morphometric) fracture. -T-score less than or equal to -2.5 at the femoral neck or spine after appropriate evaluation to exclude secondary causes. -Low bone mass at the hip or spine and a 10-year fracture probability by FRAX of greater than or equal to 3% for hip fracture or greater than or equal to 20% for major osteoporotic fracture based on the [place] adapted WHO algorithm. 4. Other Recommendations: All treatment decisions require clinical judgment and consideration of individual patient factors, including patient preferences, comorbidities, previous drug use, risk factors not captured in the FRAX model (e.g. frailty, falls, vitamin D deficiency, increased bone turnover, interval significant decline in bone density) and possible under or overestimation of fracture risk by FRAX. Additional medical evaluation for secondary cause of low bone mineral density may be appropriate. FUTURE SCAN RECOMMENDATION: People with diagnosed cases of osteoporosis or at high risk for fracture should have regular bone mineral density tests. For patients eligible for Medicare, routine testing is allowed once every 2 years. The testing frequency can be increased to one year for patients who have rapidly progressing disease, those who are receiving or discontinuing medical therapy to restore bone mass, or have additional risk factors. Electronically signed by: Mily Ortega MD 01/13/2024 01:57 PM ZACHERY MCCLOUD
== END 2024-01-11 13:52 | disposition home or self-care (01) ==
LOC: HO.MAMMO 13:51
PROVIDERS: PCP Internal Medicine; Visit Provider Internal Medicine
DX: Z13.820 Encounter for screening for osteoporosis (principal); M80.00XD Age-related osteoporosis with current pathological fracture, unspecified site, subsequent encounter for fracture with routine healing; M81.0 Age-related osteoporosis without current pathological fracture; M85.89 Other specified disorders of bone density and structure, multiple sites
CPT/HCPCS: 77080

== ENCOUNTER 2024-02-29 15:33 | Outpatient (AMB) | payer MEDICARE, MEDICAID, SELFPAY ==
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
[2024-02-29 15:50] VITALS: BP 124/68; PULSE 59; RESP 12; O2SAT 99; BMI 24.6
== END 2024-02-29 16:22 | disposition home or self-care (01) ==
PROVIDERS: PCP Internal Medicine; Visit Provider Nurse Practitioner Family
DX: M85.80 Other specified disorders of bone density and structure, unspecified site (principal); H04.123 Dry eye syndrome of bilateral lacrimal glands; N18.31 Chronic kidney disease, stage 3a; F31.0 Bipolar disorder, current episode hypomanic; H25.9 Unspecified age-related cataract; F42.9 Obsessive-compulsive disorder, unspecified; F43.10 Post-traumatic stress disorder, unspecified; Z87.828 Personal history of other (healed) physical injury and trauma; H61.23 Impacted cerumen, bilateral; Z66 Do not resuscitate; F10.91 Alcohol use, unspecified, in remission; Z00.00 Encounter for general adult medical examination without abnormal findings

== ENCOUNTER → 2024-02-29 15:33 | Outpatient (BNVA) | payer MEDICARE, MEDICAID, SELFPAY | PROVIDERS: PCP Internal Medicine; Visit Provider Nurse Practitioner Family | DX: J44.89 Other specified chronic obstructive pulmonary disease (principal); M85.80 Other specified disorders of bone density and structure, unspecified site; H04.129 Dry eye syndrome of unspecified lacrimal gland; F41.9 Anxiety disorder, unspecified; F42.9 Obsessive-compulsive disorder, unspecified; F43.10 Post-traumatic stress disorder, unspecified; H25.9 Unspecified age-related cataract; N18.31 Chronic kidney disease, stage 3a; H61.23 Impacted cerumen, bilateral; F31.0 Bipolar disorder, current episode hypomanic; F10.91 Alcohol use, unspecified, in remission; Z66 Do not resuscitate; Z87.828 Personal history of other (healed) physical injury and trauma; Z59.00 Homelessness unspecified | CPT/HCPCS: 96127; 99202 ==

== ENCOUNTER 2024-03-09 10:04 | Outpatient (AMB) | payer MEDICARE, MEDICAID, SELFPAY ==
--- NOTE | 2024-03-09 10:10 | A.OFFVIS_ITS ---
Intake Vital Signs 03/09/24 10:14 Height 5 ft 2 in Weight 135 lb 6 oz BMI 24.8 BP 132/70 Blood Pressure Location Rt brachial Position Sitting Respiration 13 Pulse 69 Pulse Source Pulse Oximeter Pulse Oximetry (%) 98 Oxygen Delivery Method Room Air Intake Visit Reasons: 1 week AWV + ear lavage Intake Note: awv visit and ear lavage Meal Temperer Required: No Allergies nut - unspecified Allergy (Severe, Verified 03/09/24 10:11) Anaphylaxis tree nut Allergy (Severe, Verified 03/09/24 10:11) Anaphylaxis gluten Allergy (Verified 03/09/24 10:11) Unknown ibuprofen Allergy (Verified 03/09/24 10:11) Unknown lactose Allergy (Verified 03/09/24 10:11) Unknown lamotrigine Allergy (Verified 03/09/24 10:11) Unknown Peanut and Related Legumes [Peanut (Legumes)] Allergy (Verified 03/09/24 10:11) Unknown nuts Allergy (Severe, Uncoded 02/29/24 15:59) Hives Do you need a note to return to daycare/school/sports/work: No HPI HPI Comments History of Present Illness Details 73-year-old female with asthma/COPD over lap, CKD stage 3, bipolar disorder, alchohol use disorder in remission, chronically homeless, OCD, PTSD, trauma hx, osteopenia , cataracts, PVD Past Psychiatric History: The patient has several prior admissions into the hospital for rebekah. Here today for AWV. The Medicare Annual Wellness Visit (AWV) is a yearly appointment with a health professional to identify health risks and help reduce them and to create or update a personalized prevention plan. During a Medicare AWV, health p rofessionals should also review any current opioid prescriptions, detect any cognitive impairment, and establish or update medical and family history. SurgHx: Y FHx: Y SocHx: Y Health Maintenance: See scanned preventative medicine assessment with personalized health plan and screening schedule. Flu UTD Tdap 01/2023 Mammo declined Colon declined Dexa 10/08/22, updated today ACP: DNR, DNI HCP heather Ng [phone] heather Rivas [phone] AAA screen: NA EKG: done today [place] of Care: Psych Lanie McFarlan Therapy Optho Visual Acuity: + glasses, UTD on exams Hearing Screening: needs hearing aides; cannot afford at this time ACP: Y HCPTONY on file Dietary/Nutrition/Exercise Edu provided: Y During the course of the visit the patient was educated and counseled about appropriate screening and preventative services. Patient instructions were provided to the patient in written or electronic format. I have reviewed and verified the above information. History of Present Illness The patient is a 73-year-old female presenting for a Medicare annual wellness visit and bilateral ear lavage. Previously, the patient had significant obstructive ear wax, particularly in the right ear, which required intervention. During today's visit, it was noted that the wax has been removed successfully, and the eardrums are now visible and appear healthy. The patient's hearing issues seem improved following the lavage. The patient also experiences mild anxiety, which does not impede participation in regular activities. The anxiety seems to be managed with counseling and medication, with minimal interference in daily life. Social History - The patient lives independently. - No reported use of tobacco or alcohol. - Engages in exercise intermittently, us ing a treadmill at a speed of two miles per hour for 30 minutes. - Consumes a balanced diet, although wit h limited vegetable intake. - No current or past family planning act ivities relevant to current health. - No longer drives and participates as a passenger with consistent seatbelt use. Physical Exam General: Awake, alert. No apparent distress Eyes: Sclera and conjunctiva clear bilaterally Ears: Tympanic membranes intact and clear bilaterally s/p lavage Cardiovascular: Regular rate and rhythm Respiratory: Clear to auscultation bilaterally Abd soft nontender BLE skin intact, no edema, decreased PP bilat Pleasant and cooperative Results a1c ekg Plan - Schedule and perform EKG and blood wor k for cardiac screening. - Conduct a vision test as part of the [facility] assessment. - Continue management of anxiety with cu rrent therapeutic measures, as existing treatment appears effective. - Follow up in six months for routine as sessment and any necessary evaluations. Patient was informed and verbally consented to the use of an ambient scribe for clinic note documentation during this visit. Discussion Notes I discussed with the patient her wellness and preventive care strategies, und erscoring the importance of her current routine in maintaining her health. We reviewed her recent ear lavage's success, noting improvement in her auditory function. We agreed to continue her current treatment for anxiety, considering its effectiveness in managing her symptoms. I recommended routine screening tests, including an EKG and a fingerstick for diabetes, to further evaluate her cardiac health and glucose levels. The patient expressed understanding and agreement with the proposed plan. Patient Instructions - Please get your blood work and EKG don e today at the lab. - Follow up in six months for a routine wellness checkup. - Continue your current exercise and tary habits. - Maintain your medication and therapy s chedule for anxiety as previously arranged. - Seek medical attention if you experien ce any new or concerning symptoms. - Ensure seatbelt use as a passenger in any vehicles. An additional 20 minutes was spent addressing the problem(s) noted at todays visit. This includes time spent before the visit reviewing the chart, time spent during the visit, and time spent after the visit on documentation reviewing laboratory results, diagnostic imaging, medications, performing a medically necessary evaluation, counseling on diagnoses, care coordination, ordering appropriate tests, ordering appropriate medications, review of tests performed by other providers, reporting test results with the patient, communication with other healthcare providers. [facility] Medical History (Updated 03/09/24 @ 16:33 by Yessenia Zepeda, [facility]) Anxiety and depression Trigger finger Asthma-COPD overlap syndrome Surgical History (Updated 02/29/24 @ 15:49 by Sharlene Reynoso MA) H/O tubal ligation History of hip replacement Family History (Updated 02/29/24 @ 15:48 by Sharlene Reynoso MA) Mother Mental health disorder Thyroid disorder Sister Mental health disorder Cancer Sister Mental health disorder Cancer Son Substance abuse Mental health disorder Diabetes Maternal Grandmother Hypertension Maternal Grandfather Asthma Social History (Updated 02/29/24 @ 15:45 by Sharlene Reynoos MA) Household Members: Other Both parents involved: No Caregiver staying overnight: No Housing: Assisted Living Facility Are you a primary workforce investment act career manager to a significant other at home: No Do you presently have visiting nurse or other home services: No 75 years or older and lives alone: No Alcohol intake: never Patient Tobacco Use Status: Former Tobacco user Tobacco use type: Cigarette Cigarettes Per Day: 10 e-Cigarette/Vaping Use: Never Used Second Hand Smoke Exposure: No service: No Current occupational status: retired Cognitive needs: No Hearing needs: Yes Vision needs: No Questionnaire Medicare Wellness Checkup [age] What gender do you identify with?: female During the past 4 weeks, how much have you been bothered by emotional problems such as feeling anxious, depressed, irritable, sad or downhearted, and blue?: slightly During the past 4 weeks, has your physical & emotional health limited your social activities with family, friends, neighbors, or groups?: not at all During the past 4 weeks, how much bodily pain have you generally had?: no pain During the past 4 weeks, was someone available to help you if you needed & wanted help?: yes, as much as I wanted During the past 4 weeks, what was the hardest physical activity you could do for at least 2 minutes?: moderate Can you get to places out of walking distance without help? (For eg., can you travel alone on buses, taxis or drive your car?): Yes Can you go shopping for groceries or clothes without someone's help?: Yes Can you prepare your own meals?: Yes Can you do your housework without help?: Yes Because of any health problems, do you need the help of another person with your personal care needs such as eating, bathing, dressing or getting around the house?: No Can you handle your own money without help?: Yes During the past 4 weeks, how would you rate your health in general?: very good During the past 4 weeks how have things been going for you?: very well; could hardly better Are you having difficulties driving your car?: not applicable, I don't use a car Do you always fasten your seat belt when you are in a car?: yes, usually During past 4 weeks, have you been bothered by the following: never: Falling or dizzy when standing up, Sexual problems?, Trouble eating well?, Teeth or denture problems?, Problems using the telephone? and Tiredness or fatigue? Have you fallen 2 or more times in the past year?: No Are you afraid of falling?: No Are you a smoker?: no During the past 4 weeks, how many drinks of wine, beer, or other alcoholic beverages did you have?: no alcohol at all Do you exercise for about 20 minutes 3 or more times a week?: yes, some of the time Have you been given information to help with the following?: no: Hazards in your house that might hurt you? and no: Keeping track of your medications? How often do you have trouble taking medicines the way you have been told to take them?: I always take medicine as prescribed How confident are you that you can control & manage most of your health proble ms?: very confident What is your race?: White Activity of Daily Living Bathing - sponge bath, tub bath or shower: receives no assistance (gets in/out by self, if usual bathing means Dressing - getting clothes from closets & drawers, including inner/outer garments & fasteners.: gets clothes & gets completely dressed without help Toileting - going to the 'toilet room' for urine/bowel elimination & cleaning self/arranging clothes: goes to toilet room, cleans self, arranges clothes without help Transfer: moves in & out of bed and chair without help (may use support object) Continence: controls urination/bowel movements completely by self Feeding: feeds self without help Total Score: 0 Information obtained from: patient Using telephone: independent Traveling: needs assistance Shopping: independent Preparing meals: independent Housework: independent Taking medicine: independent Managing money: independent PHQ-9 Over the last 2 weeks, how often have you been bothered by any of the following problems? 21487 - PHQ-9 Billing: Patient declined-do not bill Source: Developed by Drs. Simeon Xavier, Renetta Gerber, Jeremiah Ta and colleagues, with an educational saima from [employer]. Annual Medicare Wellness Checklist In general, would you say your health is: Very Good How would you describe the condition of your mouth and teeth (including dentures): Very Good Do you exercise routinely?: Yes Do you use drugs or medications other than those prescribed?: No Do you use a seatbelt?: Yes Each night, how many hours of sleep do you get?: 8-10 Hours Do you snore, or has anyone told you that you snore?: No In the past 12 months, how many times have you fallen?: Zero In the past 7 days, how much pain have you felt?: Some How many servings of the following do you have in a week: Fast Food/ Pizza/ Snacks: None, Fruits/Vegetables: 5+ and Soda/ Sugar sweetened drinks: None How often is stress a problem for you in handling things: Your Health: Some times, Finance Stress: Never, Family Stress: Never and Work Stress: Never Physical Exam Vital Signs: Last Vital Signs Pulse 69 03/09/24 10:14 Resp 13 03/09/24 10:14 BP 132/70 03/09/24 10:14 Pulse Ox 98 03/09/24 10:14 Oxygen Delivery Method Room Air 03/09/24 10:14 BMI result Body Mass Index 24.8 Office Procedures Cerumen Removal From which ear canal was the cerumen removed: bilateral Removal: irrigation Notes: patient tolerated procedure well, no complications and ear canal clear 15588-Jcr Irrigation/Lavage EKG 58760-[id number], Complete Vision Screening Right Eye: 20/40 Left Eye: 20/40 Bilateral: 20/30 Color: Pass 75527 - Vision Screening Results AMB Hemoglobin A1c AMB Hemoglobin A1c 5.0 % Last Edit by Sharlene Reynoso MA on 03/09/24 11:03 Results Reviewed Results Reviewed: Laboratory Last Values Hgb A1c (Clinic) 5.0 % (4.0-6.0) 03/09/24 10:32 Assessment & Plan Assessment & Plan (1) Encounter for subsequent annual wellness visit (AWV) in Medicare patient: Code(s): Z00.00 - Encounter for general adult medical examination without abnormal findings (2) PVD (peripheral vascular disease): Comment: based on exam, hairless decreased pulses. Code(s): I73.9 - Peripheral vascular disease, unspecified (3) Impacted cerumen, bilateral: Code(s): H61.23 - Impacted cerumen, bilateral (4) Osteopenia: Code(s): M85.80 - Other specified disorders of bone density and structure, unspecified site Qualifiers: Osteopenia location: unspecified Qualified Code(s): M85.80 - Other specified disorders of bone density and structure, unspecified site (5) Asthma-COPD overlap syndrome: Code(s): J44.89 - Other specified chronic obstructive pulmonary disease Plan . Orders: Orders AMB Hemoglobin A1c Today Z13.9 - Encounter for screening, unspecified Quality Reporting (2019) Adult ([facility] 138/2/) Smoking risk assessment performed?: Yes Patient Tobacco Use Status: Former Tobacco user Depression screening performed: Yes Systolic BP not done?: No BMI screening not done: No Sexual Activity Screening ([facility] 153) Sexually active?: No Immunizations (CMS 147, 117) Annual Influenza Vaccine: Yes Measles Antibody Test: No Mumps Antibody Test: No Rubella Antibody Test: No Varicella Antibody Test: No Anti Hepatitis A IgG Antigen test: No Anti Hepatitis B Virus Surface Ab test: No Fall Risk Screening ([facility] 139) Last assessed Fall Risk: 03/09/24 Fall risk assessment: No Falls in past year Dementia Assessment ([facility] 149) Cognitive assessment recorded: Yes Assessment of cognition with standardized tool: Yes (08/18 6 CIT ) Ophthalmol:Cataracts Visual Acuity (133) Visual acuity exam performed: Yes (see results) Coding Level of Care Code Medicare Subsequent (G0439) Est Pt Level 3 (27692) Diagnoses Encounter for subsequent annual wellness visit (AWV) in Medicare patient Z00.00 PVD (peripheral vascular disease) I73.9 Impacted cerumen, bilateral H61.23 Osteopenia, unspecified location M85.80 Osteopenia location: unspecified Asthma-COPD overlap syndrome J44.89 CPT Codes Advance Care Planning - Advance Care Planning discussion: On file, no changes ([id number]) Advance Care Planning - Time spent: 1-15 minutes, not on file ([id number]) Office Procedure - CPT: 70441-Mff Irrigation/Lavage ([id number]) EKG - CPT: 38869-Rwhfmhpkuqkmkfmyi, Complete ([id number]) Vision Screening - Vision Screenin - Vision Screening ([id number]) Advance Care Planning Advance Care Planning discussion: On file, no changes Date of discussion: 03/09/24 Forms completed: Health Care Proxy and Comfort care/DNR Time spent: 1-15 minutes, not on file Actual minutes spent: 5
[2024-03-09 10:14] VITALS: BP 132/70; PULSE 69; RESP 13; O2SAT 98; BMI 24.8
--- OUTSIDE RECORDS SUMMARY | 2024-03-09 11:37 | XMS_ITS | Continuity of Care Document ---
Author Organization [facility] Address [address] [address] Phone Care Team Providers Care Line Construction Supervisor Name Role Phone Berta Brown NP Unavailable Unavailable Advance Directives Directive Yes / No Effective Date File Name No Information Encounters Encounter Description Practice Location Reason(s) For Visit Diagnoses Date Provider Providers Copied on Encounter [facility], [address], [id number], [place] tel:[phone] [facility] No Information Kevin Popeline. [address] [place] [address], [id number], [place]. tel:[phone] Family History Family Member Type Diagnosis Age At Onset No Information Payers Payer name Insurance type Covered libertarian ID Authoriza tion(s) No Information Social History Type Description Quantity Date Captured Comments Sex Female Smoking Status No Information Chief Complaint And Reason For Visit No Information Reason For Referral Reason For Referral No Information History Of Present Illness Encounter Date Complaint History Of Prese nt Illness No Information Functional Status Date Functional Assessmen t No Information Instructions Date Instruction Additional Infor mation No Information Assessments Type Assessment Date No Information Patient Care Teams Name Effective Dates (start - stop) Status Members No Information
== END 2024-03-09 11:11 | disposition home or self-care (01) ==
PROVIDERS: PCP Nurse Practitioner Family; Visit Provider Nurse Practitioner Family
DX: Z00.00 Encounter for general adult medical examination without abnormal findings (principal); I73.9 Peripheral vascular disease, unspecified; J44.89 Other specified chronic obstructive pulmonary disease; H61.23 Impacted cerumen, bilateral; M85.80 Other specified disorders of bone density and structure, unspecified site

== ENCOUNTER 2024-03-09 11:02 | Outpatient (REF) | payer MEDICARE, MEDICAID, SELFPAY ==
[2024-03-09 14:23] LABS: Hematocrit 40.5 % (37.0-47.0); Hemoglobin 13.3 g/dl (12.0-16.0); Mean Corpuscular HGB Conc 32.8 g/dl (31.0-35.0); Mean Corpuscular Hemoglobin 29.9 pg (27.0-33.0); Mean Platelet Volume 10.7 fL (9.4-12.3); Platelet Count 212 X10*3/uL (160-400); Red Blood Count 4.45 X10*6/uL (4.20-5.50); Red Cell Distribution Width 13.8 % (11.0-16.0); White Blood Count 4.1 X10*3/uL (4.8-10.8)
[2024-03-09 14:49] LABS: Alanine Aminotransferase 33 U/L (0-31); Albumin Level 4.4 g/dL (3.5-5.0); Alkaline Phosphatase 66 U/L (39-117); Anion Gap 9 (12-20); Aspartate Amino Transferase 33 U/L (5-31); Bilirubin Total 0.5 mg/dL (0.0-1.0); Blood Urea Nitrogen 14 mg/dL (9-16); Calcium 9.4 mg/dL (8.4-10.2); Carbon Dioxide 30 mmol/L (22-29); Chloride 105 mmol/L (96-108); Cholesterol 182 mg/dL (<200); Estimated Glomerular Filt Rate > 60; Glucose Random 89 mg/dL (60-115); HDL Cholesterol 47 mg/dL (>40); LDL Cholesterol Calculated 96 mg/dL (<100); Potassium 4.1 mmol/L (3.3-5.1); Sodium 140 mmol/L (135-145); Total Protein 7.2 g/dL (6.5-8.0); Triglycerides 197 mg/dL (<150)
[2024-03-09 14:51] LABS: Creatinine Urine 69.97 mg/dL; Microalbum/Creatinine Ratio Ur 14.2 ug/mg cr (<30)
[2024-03-09 15:06] LABS: TSH reflex Free T4 1.88 uIU/mL (0.32-4.0); Vitamin D 25-OH Total 59.5 ng/mL (>30)
[2024-03-09 15:10] LABS: Folate 14.1 ng/mL (> or = 4.0); Vitamin B12 1905 pg/mL (200-900)
== END 2024-03-09 11:03 | disposition home or self-care (01) ==
LOC: HO.WFDLDS 11:02
PROVIDERS: Visit Provider Nurse Practitioner Family
DX: Z00.01 Encounter for general adult medical examination with abnormal findings (principal); I73.9 Peripheral vascular disease, unspecified; H61.23 Impacted cerumen, bilateral; M85.80 Other specified disorders of bone density and structure, unspecified site; J44.89 Other specified chronic obstructive pulmonary disease; N18.31 Chronic kidney disease, stage 3a; Z59.02 Unsheltered homelessness; Z13.1 Encounter for screening for diabetes mellitus
CPT/HCPCS: 36415; 69209; 80053; 80061; 82043; 82306; 82570; 82607; 82746; 83036; 84443; 85027; 93005; 99212

== ENCOUNTER 2024-05-08 13:45 | Inpatient (IN) | payer MEDICARE, MEDICAID, SELFPAY ==
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
[2024-05-08 13:52] VITALS: PULSE 98; O2SAT 100
[2024-05-08 14:00] VITALS: BP 128/81; PULSE 86; RESP 20; TEMP 37.1; O2SAT 99
[2024-05-08 14:49] LABS: MANUAL DIFF FLAG NO
[2024-05-08 14:53] LABS: Appearance Urine Clear; Color Urine Yellow; Glucose Urine UA Negative (Negative); Leukocyte Esterase Urine Small (1+) (Negative); Nitrite Urine Negative (Negative); UMIC TRIGGER UACC YES; Urine Blood Negative (Negative); Urine Ketones Negative (Negative); Urine Protein Negative (Neg-Trace)
[2024-05-08 14:55] LABS: Basophils Percent Auto 0.4 % (0-2); Eosinophils Absolute Auto 0.1 X10*3/uL (0.0-0.4); Eosinophils Percent Auto 1.6 % (0-4); Hemoglobin 13.9 g/dl (12.0-16.0); Imm Gran Abs Auto 0.01 X10*3/uL (0.00-0.03); Imm Gran Pct Auto 0.2 % (0.0-0.4); Lymphocytes Percent Auto 17.9 % (20-40); Mean Corpuscular HGB Conc 34.8 g/dl (31.0-35.0); Mean Corpuscular Hemoglobin 30.7 pg (27.0-33.0); Mean Corpuscular Volume 88.3 fL (80.0-98.0); Mean Platelet Volume 9.5 fL (9.4-12.3); Monocytes Absolute Auto 0.3 X10*3/uL (0.1-1.2); Neutrophils Absolute Auto 4.1 x10*3/uL (2.0-8.3); Neutrophils Percent Auto 73.9 % (45-73); Platelet Count 215 X10*3/uL (160-400); Red Blood Count 4.53 X10*6/uL (4.20-5.50); Red Cell Distribution Width 13.8 % (11.0-16.0); White Blood Count 5.5 X10*3/uL (4.8-10.8)
[2024-05-08 15:06] LABS: Magnesium 1.9 mg/dL (1.6-2.6)
[2024-05-08 15:12] LABS: Amphetamine Screen Urine Not Detected (Not Detect); Barbiturates, Urine Not Detected (Not Detect); Benzodiazepines Screen Urine Not Detected (Not Detect); Buprenorphine Scr Not Detected (Not Detect); Cannabinoid Screen Urine Not Detected (Not Detect); Cocaine Screen Urine Not Detected (Not Detect); Fentanyl, urine Not Detected (Not Detect); Methadone Screen, Urine Not Detected (Not Detect); Opiate Screen Urine POSITIVE (Not Detect); Oxycodone Screen Urine Not Detected (Not Detect); Phencyclidine Screen Urine Not Detected (Not Detect)
[2024-05-08 15:16] LABS: Alanine Aminotransferase 18 U/L (0-31); Albumin Level 4.5 g/dL (3.5-5.0); Alkaline Phosphatase 71 U/L (39-117); Anion Gap 16 (12-20); Aspartate Amino Transferase 32 U/L (5-31); Bilirubin Total 0.5 mg/dL (0.0-1.0); Blood Urea Nitrogen 12 mg/dL (9-16); Calcium 9.4 mg/dL (8.4-10.2); Carbon Dioxide 26 mmol/L (22-29); Chloride 103 mmol/L (96-108); Creatinine Clr Calc Pharmacy 54.8; Estimated Glomerular Filt Rate > 60; Ethanol < 10 mg/dL; Glucose Random 99 mg/dL (60-115); Sodium 141 mmol/L (135-145); Total Protein 7.6 g/dL (6.5-8.0)
[2024-05-08 15:37] LABS: Bacteria Urine None Seen (None Seen); Hyaline Casts Urine 0-2 /LPF (0-2); RBC Urine 0-2 /HPF (0-2); Squamous Epithelial Cell Urine 0-2 /HPF (0-2); UACC Culture Trigger YES; WBC Urine 0-5 /HPF (0-5)
[2024-05-08 16:31] VITALS: RESP 16
[2024-05-08] MEDS: busPIRone HCl 10 MG TABLET PO (18:35)
--- NOTE | 2024-05-08 18:35 | PC.NURSE ---
Aishwarya administered unscheduled, PA aware
[2024-05-08] MEDS: Acetaminophen 325 MG TABLET 650 MG PO (20:17)
[2024-05-08 22:08] VITALS: BP 102/56; PULSE 76; RESP 16; TEMP 36.6; O2SAT 97
--- NOTE | 2024-05-09 | ECG_ITS ---
Test Reason : ck qtc Blood Pressure : */* mmHG Vent. Rate : 75 BPM Atrial Rate : 75 BPM P-R Int : 174 ms QRS Dur : 82 ms QT Int : 410 ms P-R-T Axes : 69 18 37 degrees QTcB Int : 457 ms Normal sinus rhythm Normal ECG When compared with ECG of 13-Dec-2023 05:10, No significant change was found Referred By: Christie Nair Electronically Signed By: Abiodun Sandoval
[2024-05-09] MEDS: busPIRone HCl 10 MG TABLET PO ×2 (06:14→13:20)
--- NOTE | 2024-05-09 06:18 | PC.NURSE ---
pt resting comfortably throughout the night, pt now awake having a snack,. pt is a little tearful but calm and cooperative. sitter at bedside
--- NOTE | 2024-05-09 07:37 | PHA.MEDREC ---
Addendum entered by Asia Riojas [facility] 05/09/24 07:54: reviewed Original Note: Pharmacy Consult ? Medication Reconciliation Pharmacy reviewed med rec done by nursing. Claims matches, some OTC meds were filled a few months ago but can be acquired out of pharmacy.
[2024-05-09 07:59] VITALS: BP 120/58; PULSE 69; RESP 18; TEMP 36.1; O2SAT 97
[2024-05-09] MEDS: Calcium Oyster Shell Elemental 500 MG TABLET PO (09:24)
[2024-05-09] MEDS: Cholecalciferol (Vitamin D3) 25 MCG TABLET PO (09:24)
[2024-05-09] MEDS: Loratadine 10 MG TABLET PO (09:24)
[2024-05-09] MEDS: Multivitamin TABLET 1 TAB PO (09:24)
[2024-05-09] MEDS: Cyanocobalamin (Vitamin B-12) 1,000 MCG TABLET 1000 MCG PO (09:24)
[2024-05-09] MEDS: Acetaminophen 325 MG TABLET 650 MG PO ×2 (09:42→18:49)
--- NOTE | 2024-05-09 12:36 | PC.NURSE ---
Pt declined her morning Paroxetine PO, stating I can only take the name brand Paxil. I'm going to sink into depression ; pt states she has no one to bring her her home meds and [facility] contacted by this RN; they state they do not carry name brand Paxil in the formulary
[2024-05-09 14:39] LABS: Alanine Aminotransferase 21 U/L (0-31); Albumin Level 4.4 g/dL (3.5-5.0); Alkaline Phosphatase 74 U/L (39-117); Anion Gap 10 (12-20); Aspartate Amino Transferase 31 U/L (5-31); Bilirubin Total 0.5 mg/dL (0.0-1.0); Blood Urea Nitrogen 12 mg/dL (9-16); Calcium 9.8 mg/dL (8.4-10.2); Carbon Dioxide 29 mmol/L (22-29); Chloride 106 mmol/L (96-108); Creatinine Clr Calc Pharmacy 50.7; Estimated Glomerular Filt Rate > 60; Glucose Fasting 133 mg/dL (60-99); Potassium 4.3 mmol/L (3.3-5.1); Sodium 141 mmol/L (135-145); Total Protein 7.6 g/dL (6.5-8.0)
[2024-05-09 14:57] VITALS: BMI 21.9
--- NOTE | 2024-05-09 17:06 | PC.ADMIT ---
Pt entered unit at 1444 via w/c. She was transferred from [facility] to S[facility] as she qualifies for IPLOC d/t rebekah, vague SI statement, paranoia, and aggression in [facility] from whence she came. Pt was pleasant and cooperative during admission process, however, needed much redirection to stay on topic and answer questions more succinctly. During VS check, pt pulse was 42. Urgent EKG was ordered and was WNL for rate and rhythm. When this health science writer asked patient about her lungs, she demanded I don't have COPD/Asthma. Take that out of my chart right now. They don't ever know what they are talking about . Skin check was clean. Pt well known to this unit. Placed on 5 minute checks.
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
[2024-05-09 19:50] VITALS: BP 124/71; PULSE 79; RESP 16; TEMP 36.9; O2SAT 95
[2024-05-10] MEDS: Acetaminophen 325 MG TABLET 650 MG PO ×3 (06:18→20:59)
[2024-05-10 08:00] VITALS: BP 126/81; PULSE 75; RESP 14; TEMP 36.4; O2SAT 95
[2024-05-10] MEDS: Calcium Oyster Shell Elemental 500 MG TABLET PO (08:16)
[2024-05-10] MEDS: Loratadine 10 MG TABLET PO (08:16)
[2024-05-10] MEDS: Multivitamin TABLET 1 TAB PO (08:16)
[2024-05-10] MEDS: Cholecalciferol (Vitamin D3) 25 MCG TABLET PO (08:16)
[2024-05-10] MEDS: Cyanocobalamin (Vitamin B-12) 1,000 MCG TABLET 1000 MCG PO (08:16)
[2024-05-10 09:31] VITALS: BMI 24.7
[2024-05-10 09:31] LABS: Estimated Average Glucose 103 mg/dL; Hemoglobin A1c % 5.2 % (<6.0)
[2024-05-10 10:07] LABS: Folate 13.8 ng/mL (> or = 4.0); Vitamin B12 1890 pg/mL (200-900)
--- NOTE | 2024-05-10 10:26 | P.PNPSI_ITS ---
Subjective Subjective Date of Service: 05/10/24 Reason For Visit: SI Subjective Notes: Conditional Voluntary Interim History: Pt had some difficulty sleeping. She reports she is doing well. She continues to decline antipsychotics. She reports she will continue paxil and buspar. No safety concerns. she signed a 3 day notice. Review of Systems Review of Systems Yes all other systems are reviewed and are negative Constitutional: Reports as per HPI Mental Status Exam Mental Status Exam Narrative: Appearance: wearing casual clothing, good hygiene, in NAD Behavior: cooperative and friendly Psychomotor: no agitation or retardation noted Speech: clear, verbose, not pressured but hyperverbal, spontaneous TP: tangential, circumstantial at times TC: overall feeling good, still feels safe at [facility] and wants to return back Mood: good Affect: congruent, non labile SI: adamantly denies HI: none VH/AH: hearing someone making sounds that she believes are intentional to torturing her. Delusions: paranoid delusions related to someone is following her and monitoring her and letting her know they are doing that. Insight/judgment: poor x 2. Memory/cog: alert, oriented x 3. Diagnostics Vital Signs (24Hr): Vital Signs - 24 hr 05/09/24 19:50 05/10/24 08:00 Temperature 98.4 F 97.6 F Pulse Rate 79 75 Respiratory Rate 16 14 Blood Pressure 124/71 126/81 Pulse Oximetry 95 95 Oxygen Delivery Method Room Air Room Air BMI result Body Mass Index 24.7 Labs 05/08/24 14:45 05/09/24 14:14 Labs: Laboratory Results - last 48 hr 05/08/24 05/09/24 05/10/24 14:45 14:14 08:48 WBC 5.5 RBC 4.53 Hgb 13.9 Hct 40.0 MCV 88.3 MCH 30.7 MCHC 34.8 RDW 13.8 Plt Count 215 MPV 9.5 Immature Gran % (Auto) 0.2 Neut % (Auto) 73.9 H Lymph % (Auto) 17.9 L Lamb % (Auto) 6.0 Eos % (Auto) 1.6 Baso % (Auto) 0.4 Lymph # (Auto) 1.0 L Lamb # (Auto) 0.3 Eos # (Auto) 0.1 Baso # (Auto) 0.0 Abs Immat Gran (auto) 0.01 Absolute Neuts (auto) 4.1 Absolute Nucleated RBC 0.000 Nucleated RBC % (auto) 0.0 Sodium 141 141 Potassium 4.0 4.3 Chloride 103 106 Carbon Dioxide 26 29 Anion Gap 16 10 L BUN 12 12 Creatinine 0.75 0.81 Estim Creat Clear Calc 54.8 50.7 Estimated GFR > 60 > 60 Random Glucose 99 Fasting Glucose 133 H Estimat Average Glucose 103 Hemoglobin A1c % 5.2 Calcium 9.4 9.8 Magnesium 1.9 Total Bilirubin 0.5 0.5 AST 32 H 31 ALT 18 21 Alkaline Phosphatase 71 74 Total Protein 7.6 7.6 Albumin 4.5 4.4 Vitamin B12 1890 H Folate 13.8 Urine Color Yellow Urine Appearance Clear Urine pH 7.0 Ur Specific [place] 1.010 Urine Protein Negative Urine Glucose (UA) Negative Urine Ketones Negative Urine Blood Negative Urine Nitrite Negative Ur Leukocyte Esterase Small (1+) H Urine RBC 0-2 Urine WBC 0-5 Ur Squamous Epith Cells 0-2 Urine Bacteria None Seen Hyaline Casts 0-2 Urine Opiates Screen POSITIVE H Ur Buprenorphine Scrn Not Detected Ur Oxycodone Screen Not Detected Urine Methadone Screen Not Detected Urine Fentanyl Screen Not Detected Ur Barbiturates Screen Not Detected Ur Phencyclidine Scrn Not Detected Ur Amphetamines Screen Not Detected U Benzodiazepines Scrn Not Detected Urine Cocaine Screen Not Detected U Marijuana (THC) Screen Not Detected Ethyl Alcohol < 10 Medications Medications Current Medications Acetaminophen (Acetaminophen 325 Mg Tablet) 650 mg PO Q6H PRN PRN Reason: pain Last Admin: 05/10/24 06:18 Dose: 650 mg Al Hydroxide/Mg Hydroxide (Magnesium Hydrox/Alum Hydrox 30 Ml Oral.Susp) 30 ml PO Q6H PRN PRN Reason: Heartburn/Nausea Calcium Carbonate (Calcium Oyster Shell Elemental 500 Mg Tablet) 500 mg PO DAILY [facility] Last Admin: 05/10/24 08:16 Dose: 500 mg Cyanocobalamin (Cyanocobalamin (Vitamin B-12) 1,000 Mcg Tablet) 1,000 mcg PO DAILY [facility] Last Admin: 05/10/24 08:16 Dose: 1,000 mcg Loratadine (Loratadine 10 Mg Tablet) 10 mg PO DAILY [facility] Last Admin: 05/10/24 08:16 Dose: 10 mg Magnesium Hydroxide (Milk Of Magnesia 30 Ml Oral.Susp) 30 ml PO DAILY PRN PRN Reason: Constipation Multivitamins/Vitamin C (Multivitamin Tablet) 1 tab PO DAILY [facility] Last Admin: 05/10/24 08:16 Dose: 1 tab Trazodone HCl (Trazodone Hcl 50 Mg Tablet) 50 mg PO BEDTIME PRN PRN Reason: Insomnia Vitamin D (Cholecalciferol (Vitamin D3) 25 Mcg Tablet) 25 mcg PO DAILY [facility] Last Admin: 05/10/24 08:16 Dose: 25 mcg Allergies Allergies Allergy/AdvReac Type Severity Reaction Status Date / Time nut - unspecified Allergy Severe Anaphylaxis Verified 05/08/24 14:03 tree nut Allergy Severe Anaphylaxis Verified 05/08/24 14:03 gluten Allergy Unknown Verified 05/08/24 14:03 ibuprofen Allergy Unknown Verified 05/08/24 14:03 lactose Allergy Unknown Verified 05/08/24 14:03 lamotrigine Allergy Unknown Verified 05/08/24 14:03 Peanut and Related Legumes Allergy Unknown Verified 05/08/24 14:03 [Peanut (Legumes)] nuts Allergy Severe Hives Uncoded 05/08/24 14:03 Assessment & Plan Assessment & Plan (1) Bipolar disorder: Qualifiers: Active/Remission status: currently active Current bipolar episode type: hypomanic Qualified Code(s): F31.0 - Bipolar disorder, current episode hypomanic Status: Acute Code(s): F31.9 - Bipolar disorder, unspecified Plan Ms. Ng is a 74 year-old woman with hx of Bipolar disorder who was brought via EMS from [facility] to [facility] ED due to increase paranoia, and apparently had made suicidal statements. On the unit, pt denies SI/HI. However, she presents with paranoid delusions. We discussed risks, benefits and alternative treatment options. She declines taking antipsychotic. She does ask for paxil and buspar which have been continued. PLAN 1. pt signed 3 day notice. No safety concerns in terms of SI or HI. May leave at time of expiration of 3 day. Reason for continued inpatient stay Substantial Risk for: inability to function Time Spent With Patient Time: Total time managing care of this patient today ____ minutes.
[2024-05-10] MEDS: PARoxetine HCL 30 MG TABLET PO (13:58)
[2024-05-10] MEDS: busPIRone HCl 10 MG TABLET PO ×2 (14:42→20:59)
[2024-05-10 20:00] VITALS: BP 112/62; PULSE 68; RESP 18; TEMP 36.3; O2SAT 96
[2024-05-11 08:00] VITALS: BP 154/67; PULSE 72; RESP 16; TEMP 36.6; O2SAT 99
[2024-05-11] MEDS: busPIRone HCl 10 MG TABLET PO ×3 (08:48→20:22)
[2024-05-11] MEDS: PARoxetine HCL 30 MG TABLET PO (08:48)
[2024-05-11] MEDS: Multivitamin TABLET 1 TAB PO (08:48)
[2024-05-11] MEDS: Cholecalciferol (Vitamin D3) 25 MCG TABLET PO (08:48)
[2024-05-11] MEDS: Loratadine 10 MG TABLET PO (08:48)
[2024-05-11] MEDS: Cyanocobalamin (Vitamin B-12) 1,000 MCG TABLET 1000 MCG PO (08:48)
[2024-05-11] MEDS: Calcium Oyster Shell Elemental 500 MG TABLET PO (08:49)
[2024-05-11 09:15] LABS: Cholesterol 213 mg/dL (<200); HDL Cholesterol 58 mg/dL (>40); LDL Cholesterol Calculated 122 mg/dL (<100); Triglycerides 168 mg/dL (<150)
[2024-05-11] MEDS: Acetaminophen 325 MG TABLET 650 MG PO ×3 (09:24→22:59)
[2024-05-11] MEDS: Milk of Magnesia 30 ML ORAL.SUSP PO (09:26)
[2024-05-11 09:32] LABS: Thyroid Stimulating Hormone 2.68 uIU/mL (0.32-4.0)
[2024-05-11] MEDS: Magnesium Hydrox/Alum Hydrox 30 ML ORAL.SUSP PO (10:06)
--- NOTE | 2024-05-11 16:28 | P.PNPSI_ITS ---
Subjective Subjective Date of Service: 05/11/24 Reason For Visit: SI Subjective Notes: Conditional Voluntary and 3 Day Interim History: Pt had some difficulty sleeping. She reports she is doing well. She continues to decline antipsychotics. She reports she will continue paxil and buspar. No safety concerns. she signed a 3 day notice. Review of Systems Review of Systems Yes all other systems are reviewed and are negative Constitutional: Reports as per HPI Mental Status Exam Mental Status Exam Narrative: Appearance: wearing casual clothing, good hygiene, in NAD Behavior: cooperative and friendly Psychomotor: no agitation or retardation noted Speech: clear, verbose, not pressured but hyperverbal, spontaneous TP: tangential, circumstantial at times TC: overall feeling good, still feels safe at [facility] and wants to return back Mood: good Affect: congruent, non labile SI: adamantly denies HI: none VH/AH: hearing someone making sounds that she believes are intentional to torturing her. Delusions: paranoid delusions related to someone is following her and monitoring her and letting her know they are doing that. Insight/judgment: poor x 2. Memory/cog: alert, oriented x 3. Diagnostics Vital Signs (24Hr): Vital Signs - 24 hr 05/10/24 20:00 05/11/24 08:00 Temperature 97.4 F 97.9 F Pulse Rate 68 72 Respiratory Rate 18 16 Blood Pressure 112/62 154/67 H Pulse Oximetry 96 99 Oxygen Delivery Method Room Air Room Air BMI result Body Mass Index 24.7 Labs 05/08/24 14:45 05/09/24 14:14 Labs: Laboratory Results - last 48 hr 05/10/24 05/11/24 08:48 07:55 Estimat Average Glucose 103 Hemoglobin A1c % 5.2 Triglycerides 168 H Cholesterol 213 H LDL Cholesterol, Calc 122 H HDL Cholesterol 58 Vitamin B12 1890 H Folate 13.8 TSH 2.68 Medications Medications Current Medications Acetaminophen (Acetaminophen 325 Mg Tablet) 650 mg PO Q6H PRN PRN Reason: pain Last Admin: 05/11/24 16:19 Dose: 650 mg Al Hydroxide/Mg Hydroxide (Magnesium Hydrox/Alum Hydrox 30 Ml Oral.Susp) 30 ml PO Q6H PRN PRN Reason: Heartburn/Nausea Last Admin: 05/11/24 10:06 Dose: 30 ml Buspirone HCl (Buspirone Hcl 10 Mg Tablet) 10 mg PO TID [facility] Last Admin: 05/11/24 16:18 Dose: 10 mg Calcium Carbonate (Calcium Oyster Shell Elemental 500 Mg Tablet) 500 mg PO DAILY [facility] Last Admin: 05/11/24 08:49 Dose: 500 mg Cyanocobalamin (Cyanocobalamin (Vitamin B-12) 1,000 Mcg Tablet) 1,000 mcg PO DAILY [facility] Last Admin: 05/11/24 08:48 Dose: 1,000 mcg Loratadine (Loratadine 10 Mg Tablet) 10 mg PO DAILY [facility] Last Admin: 05/11/24 08:48 Dose: 10 mg Magnesium Hydroxide (Milk Of Magnesia 30 Ml Oral.Susp) 30 ml PO DAILY PRN PRN Reason: Constipation Last Admin: 05/11/24 09:26 Dose: 30 ml Multivitamins/Vitamin C (Multivitamin Tablet) 1 tab PO DAILY [facility] Last Admin: 05/11/24 08:48 Dose: 1 tab Paroxetine HCl (Paroxetine Hcl 30 Mg Tablet) 30 mg PO DAILY [facility] Last Admin: 05/11/24 08:48 Dose: 30 mg Polyethylene Glycol (Polyethylene Glycol 3350 17 Gm Powd.Pack) 17 gm PO DAILY PRN PRN Reason: Constipation Trazodone HCl (Trazodone Hcl 50 Mg Tablet) 50 mg PO BEDTIME PRN PRN Reason: Insomnia Vitamin D (Cholecalciferol (Vitamin D3) 25 Mcg Tablet) 25 mcg PO DAILY [facility] Last Admin: 05/11/24 08:48 Dose: 25 mcg Allergies Allergies Allergy/AdvReac Type Severity Reaction Status Date / Time nut - unspecified Allergy Severe Anaphylaxis Verified 05/08/24 14:03 tree nut Allergy Severe Anaphylaxis Verified 05/08/24 14:03 gluten Allergy Unknown Verified 05/08/24 14:03 ibuprofen Allergy Unknown Verified 05/08/24 14:03 lactose Allergy Unknown Verified 05/08/24 14:03 lamotrigine Allergy Unknown Verified 05/08/24 14:03 Peanut and Related Legumes Allergy Unknown Verified 05/08/24 14:03 [Peanut (Legumes)] nuts Allergy Severe Hives Uncoded 05/08/24 14:03 Assessment & Plan Assessment & Plan (1) Bipolar disorder: Qualifiers: Active/Remission status: currently active Current bipolar episode type: hypomanic Qualified Code(s): F31.0 - Bipolar disorder, current episode hypomanic Status: Acute Code(s): F31.9 - Bipolar disorder, unspecified Plan Ms. Ng is a 74 year-old woman with hx of Bipolar disorder who was brought via EMS from [facility] to [facility] due to increase paranoia, and apparently had made suicidal statements. On the unit, pt denies SI/HI. However, she presents with paranoid delusions. We discussed risks, benefits and alternative treatment options. She declines taking antipsychotic. She does ask for paxil and buspar which have been continued. PLAN 1. pt signed 3 day notice. No safety concerns in terms of SI or HI. May leave at time of expiration of 3 day. Reason for continued inpatient stay Substantial Risk for: inability to function Time Spent With Patient Time: Total time managing care of this patient today ____ minutes.
[2024-05-11] MEDS: polyethylene glycoL 3350 17 GM POWD.PACK PO (18:53)
[2024-05-11 20:00] VITALS: BP 112/60; PULSE 67; RESP 18; TEMP 35.9; O2SAT 98
[2024-05-12 08:00] VITALS: BP 133/63; PULSE 83; RESP 16; TEMP 36.4; O2SAT 98
--- NOTE | 2024-05-12 08:55 | HO.PSYCHPN ---
Subjective Subjective Date of Service: 05/12/24 Reason For Visit: SI Interim History: Pt remains delusional related to being targeted at her [facility] by staff who she says have been harassing her. She reports she is doing well otherwise. She continues to decline antipsychotics. She reports she will continue paxil and buspar. No safety concerns. she signed a 3 day notice. Review of Systems Review of Systems Yes all other systems are reviewed and are negative Constitutional: Reports as per HPI Mental Status Exam Mental Status Exam Narrative: Appearance: wearing casual clothing, good hygiene, in NAD Behavior: cooperative and friendly Psychomotor: no agitation or retardation noted Speech: clear, verbose, not pressured but hyperverbal, spontaneous TP: tangential, circumstantial at times TC: overall feeling good, still feels safe at [facility] and wants to return back Mood: good Affect: congruent, non labile SI: adamantly denies HI: none VH/AH: hearing someone making sounds that she believes are intentional to torturing her. Delusions: paranoid delusions related to someone is following her and monitoring her and letting her know they are doing that. Insight/judgment: poor x 2. Memory/cog: alert, oriented x 3. Diagnostics Vital Signs (24Hr): Vital Signs - 24 hr 05/11/24 20:00 Temperature 96.7 F L Pulse Rate 67 Respiratory Rate 18 Blood Pressure 112/60 Pulse Oximetry 98 Oxygen Delivery Method Room Air BMI result Body Mass Index 24.7 Labs 05/08/24 14:45 05/09/24 14:14 Labs: Laboratory Results - last 48 hr 05/10/24 05/11/24 08:48 07:55 Estimat Average Glucose 103 Hemoglobin A1c % 5.2 Triglycerides 168 H Cholesterol 213 H LDL Cholesterol, Calc 122 H HDL Cholesterol 58 Vitamin B12 1890 H Folate 13.8 TSH 2.68 Medications Medications Current Medications Acetaminophen (Acetaminophen 325 Mg Tablet) 650 mg PO Q6H PRN PRN Reason: pain Last Admin: 05/11/24 22:59 Dose: 650 mg Al Hydroxide/Mg Hydroxide (Magnesium Hydrox/Alum Hydrox 30 Ml Oral.Susp) 30 ml PO Q6H PRN PRN Reason: Heartburn/Nausea Last Admin: 05/11/24 10:06 Dose: 30 ml Buspirone HCl (Buspirone Hcl 10 Mg Tablet) 10 mg PO TID [facility] Last Admin: 05/11/24 20:22 Dose: 10 mg Calcium Carbonate (Calcium Oyster Shell Elemental 500 Mg Tablet) 500 mg PO DAILY [facility] Last Admin: 05/11/24 08:49 Dose: 500 mg Cyanocobalamin (Cyanocobalamin (Vitamin B-12) 1,000 Mcg Tablet) 1,000 mcg PO DAILY [facility] Last Admin: 05/11/24 08:48 Dose: 1,000 mcg Loratadine (Loratadine 10 Mg Tablet) 10 mg PO DAILY [facility] Last Admin: 05/11/24 08:48 Dose: 10 mg Magnesium Hydroxide (Milk Of Magnesia 30 Ml Oral.Susp) 30 ml PO DAILY PRN PRN Reason: Constipation Last Admin: 05/11/24 09:26 Dose: 30 ml Multivitamins/Vitamin C (Multivitamin Tablet) 1 tab PO DAILY [facility] Last Admin: 05/11/24 08:48 Dose: 1 tab Paroxetine HCl (Paroxetine Hcl 30 Mg Tablet) 30 mg PO DAILY [facility] Last Admin: 05/11/24 08:48 Dose: 30 mg Polyethylene Glycol (Polyethylene Glycol 3350 17 Gm Powd.Pack) 17 gm PO DAILY PRN PRN Reason: Constipation Last Admin: 05/11/24 18:53 Dose: 17 gm Trazodone HCl (Trazodone Hcl 50 Mg Tablet) 50 mg PO BEDTIME PRN PRN Reason: Insomnia Vitamin D (Cholecalciferol (Vitamin D3) 25 Mcg Tablet) 25 mcg PO DAILY [facility] Last Admin: 05/11/24 08:48 Dose: 25 mcg Allergies Allergies Allergy/AdvReac Type Severity Reaction Status Date / Time nut - unspecified Allergy Severe Anaphylaxis Verified 05/08/24 14:03 tree nut Allergy Severe Anaphylaxis Verified 05/08/24 14:03 gluten Allergy Unknown Verified 05/08/24 14:03 ibuprofen Allergy Unknown Verified 05/08/24 14:03 lactose Allergy Unknown Verified 05/08/24 14:03 lamotrigine Allergy Unknown Verified 05/08/24 14:03 Peanut and Related Legumes Allergy Unknown Verified 05/08/24 14:03 [Peanut (Legumes)] nuts Allergy Severe Hives Uncoded 05/08/24 14:03 Assessment & Plan Assessment & Plan (1) Bipolar disorder: Qualifiers: Active/Remission status: currently active Current bipolar episode type: hypomanic Qualified Code(s): F31.0 - Bipolar disorder, current episode hypomanic Status: Acute Code(s): F31.9 - Bipolar disorder, unspecified Plan Ms. Ng is a 74 year-old woman with hx of Bipolar disorder who was brought via EMS from [facility] to [facility] due to increase paranoia, and apparently had made suicidal statements. On the unit, pt denies SI/HI. However, she presents with paranoid delusions. We discussed risks, benefits and alternative treatment options. She declines taking antipsychotic. She does ask for paxil and buspar which have been continued. PLAN 1. pt signed 3 day notice. No safety concerns in terms of SI or HI. May leave at time of expiration of 3 day. 05/12: continue current management and treatment plan. Reason for continued inpatient stay Substantial Risk for: inability to function Time Spent With Patient Time: Total time managing care of this patient today ____ minutes.
[2024-05-12] MEDS: Cholecalciferol (Vitamin D3) 25 MCG TABLET PO (09:02)
[2024-05-12] MEDS: busPIRone HCl 10 MG TABLET PO ×3 (09:02→21:29)
[2024-05-12] MEDS: Multivitamin TABLET 1 TAB PO (09:02)
[2024-05-12] MEDS: Loratadine 10 MG TABLET PO (09:02)
[2024-05-12] MEDS: PARoxetine HCL 30 MG TABLET PO (09:02)
[2024-05-12] MEDS: Calcium Oyster Shell Elemental 500 MG TABLET PO (09:02)
[2024-05-12] MEDS: Cyanocobalamin (Vitamin B-12) 1,000 MCG TABLET 1000 MCG PO (09:02)
[2024-05-12] MEDS: Acetaminophen 325 MG TABLET 650 MG PO ×3 (09:31→21:29)
[2024-05-12 20:00] VITALS: BP 115/58; PULSE 70; RESP 16; TEMP 36.4; O2SAT 96
[2024-05-13 08:00] VITALS: BP 118/58; PULSE 66; RESP 18; TEMP 36.9; O2SAT 99
[2024-05-13] MEDS: Acetaminophen 325 MG TABLET 650 MG PO ×3 (08:30→20:30)
[2024-05-13] MEDS: Cholecalciferol (Vitamin D3) 25 MCG TABLET PO (08:31)
[2024-05-13] MEDS: PARoxetine HCL 30 MG TABLET PO (08:31)
[2024-05-13] MEDS: busPIRone HCl 10 MG TABLET PO ×3 (08:31→20:30)
[2024-05-13] MEDS: Calcium Oyster Shell Elemental 500 MG TABLET PO (08:31)
[2024-05-13] MEDS: Cyanocobalamin (Vitamin B-12) 1,000 MCG TABLET 1000 MCG PO (08:31)
[2024-05-13] MEDS: Loratadine 10 MG TABLET PO (08:31)
[2024-05-13] MEDS: Multivitamin TABLET 1 TAB PO (08:31)
--- NOTE | 2024-05-13 12:05 | P.PNPSI_ITS ---
Subjective Subjective Date of Service: 05/13/24 Reason For Visit: SI Interim History: Patient continues to decline antipsychotics. She continues paxil and buspar. No safety concerns. she signed a 3 day notice. Denies SI/HI/AVH. Paranoia continues. Review of Systems Review of Systems Yes all other systems are reviewed and are negative Constitutional: Reports as per [facility] Mental Status Exam Mental Status Exam Narrative: Appearance: wearing casual clothing, good hygiene, in NAD Behavior: cooperative and friendly Psychomotor: no agitation or retardation noted Speech: clear, verbose, not pressured but hyperverbal, spontaneous TP: tangential, circumstantial at times TC: overall feeling good, still feels safe at [facility] and wants to return back Mood: good Affect: congruent, non labile SI: adamantly denies HI: none VH/AH: hearing someone making sounds that she believes are intentional to torturing her. Delusions: paranoid delusions related to someone is following her and monitoring her and letting her know they are doing that. Insight/judgment: poor x 2. Memory/cog: alert, oriented x 3. Diagnostics Vital Signs (24Hr): Vital Signs - 24 hr 05/12/24 20:00 05/13/24 08:00 Temperature 97.6 F 98.5 F Pulse Rate 70 66 Respiratory Rate 16 18 Blood Pressure 115/58 L 118/58 L Pulse Oximetry 96 99 Oxygen Delivery Method Room Air Room Air BMI result Body Mass Index 24.7 Labs 05/08/24 14:45 05/09/24 14:14 Medications Medications Current Medications Acetaminophen (Acetaminophen 325 Mg Tablet) 650 mg PO Q6H PRN PRN Reason: pain Last Admin: 05/13/24 08:30 Dose: 650 mg Al Hydroxide/Mg Hydroxide (Magnesium Hydrox/Alum Hydrox 30 Ml Oral.Susp) 30 ml PO Q6H PRN PRN Reason: Heartburn/Nausea Last Admin: 05/11/24 10:06 Dose: 30 ml Buspirone HCl (Buspirone Hcl 10 Mg Tablet) 10 mg PO TID [facility] Last Admin: 05/13/24 08:31 Dose: 10 mg Calcium Carbonate (Calcium Oyster Shell Elemental 500 Mg Tablet) 500 mg PO DAILY [facility] Last Admin: 05/13/24 08:31 Dose: 500 mg Cyanocobalamin (Cyanocobalamin (Vitamin B-12) 1,000 Mcg Tablet) 1,000 mcg PO DAILY [facility] Last Admin: 05/13/24 08:31 Dose: 1,000 mcg Loratadine (Loratadine 10 Mg Tablet) 10 mg PO DAILY [facility] Last Admin: 05/13/24 08:31 Dose: 10 mg Magnesium Hydroxide (Milk Of Magnesia 30 Ml Oral.Susp) 30 ml PO DAILY PRN PRN Reason: Constipation Last Admin: 05/11/24 09:26 Dose: 30 ml Multivitamins/Vitamin C (Multivitamin Tablet) 1 tab PO DAILY [facility] Last Admin: 05/13/24 08:31 Dose: 1 tab Paroxetine HCl (Paroxetine Hcl 30 Mg Tablet) 30 mg PO DAILY [facility] Last Admin: 05/13/24 08:31 Dose: 30 mg Polyethylene Glycol (Polyethylene Glycol 3350 17 Gm Powd.Pack) 17 gm PO DAILY PRN PRN Reason: Constipation Last Admin: 05/11/24 18:53 Dose: 17 gm Trazodone HCl (Trazodone Hcl 50 Mg Tablet) 50 mg PO BEDTIME PRN PRN Reason: Insomnia Vitamin D (Cholecalciferol (Vitamin D3) 25 Mcg Tablet) 25 mcg PO DAILY [facility] Last Admin: 05/13/24 08:31 Dose: 25 mcg Allergies Allergies Allergy/AdvReac Type Severity Reaction Status Date / Time nut - unspecified Allergy Severe Anaphylaxis Verified 05/08/24 14:03 tree nut Allergy Severe Anaphylaxis Verified 05/08/24 14:03 gluten Allergy Unknown Verified 05/08/24 14:03 ibuprofen Allergy Unknown Verified 05/08/24 14:03 lactose Allergy Unknown Verified 05/08/24 14:03 lamotrigine Allergy Unknown Verified 05/08/24 14:03 Peanut and Related Legumes Allergy Unknown Verified 05/08/24 14:03 [Peanut (Legumes)] nuts Allergy Severe Hives Uncoded 05/08/24 14:03 Assessment & Plan Assessment & Plan (1) Bipolar disorder: Qualifiers: Active/Remission status: currently active Current bipolar episode type: hypomanic Qualified Code(s): F31.0 - Bipolar disorder, current episode hypomanic Status: Acute Code(s): F31.9 - Bipolar disorder, unspecified Plan Ms. Ng is a 74 year-old woman with hx of Bipolar disorder who was brought via EMS from [facility] to [facility] due to increase paranoia, and apparently had made suicidal statements. On the unit, pt denies SI/HI. However, she presents with paranoid delusions. We discussed risks, benefits and alternative treatment options. She declines taking antipsychotic. She does ask for paxil and buspar which have been continued. PLAN 1. pt signed 3 day notice. No safety concerns in terms of SI or HI. May leave at time of expiration of 3 day. 05/12: continue current management and treatment plan. 05/13: continue current management and treatment plan. Reason for continued inpatient stay Substantial Risk for: inability to function and rapid decompensation Time Spent With Patient Time: Total time managing care of this patient today ____ minutes.
[2024-05-13 20:00] VITALS: BP 142/69; PULSE 69; RESP 16; TEMP 36.4; O2SAT 97
[2024-05-14] MEDS: Acetaminophen 325 MG TABLET 650 MG PO ×3 (09:07→21:32)
[2024-05-14] MEDS: Cyanocobalamin (Vitamin B-12) 1,000 MCG TABLET 1000 MCG PO (09:08)
[2024-05-14] MEDS: Cholecalciferol (Vitamin D3) 25 MCG TABLET PO (09:08)
[2024-05-14] MEDS: PARoxetine HCL 30 MG TABLET PO (09:08)
[2024-05-14] MEDS: Calcium Oyster Shell Elemental 500 MG TABLET PO (09:08)
[2024-05-14] MEDS: Loratadine 10 MG TABLET PO (09:08)
[2024-05-14] MEDS: Multivitamin TABLET 1 TAB PO (09:08)
[2024-05-14] MEDS: busPIRone HCl 10 MG TABLET PO ×3 (09:08→19:44)
[2024-05-14 09:12] VITALS: BP 156/70; PULSE 70; RESP 16; TEMP 36.7; O2SAT 96
--- NOTE | 2024-05-14 16:25 | HO.PSYCHPN ---
Subjective Subjective Date of Service: 05/14/24 Reason For Visit: SI Subjective Notes: Conditional Voluntary Interim History: The nursing staff reported the patient had been pleasant, denies psychotic symptoms she reported that she was yelling at night. She is going to be discharged tomorrow. On interview the patient reports that she is feeling well and she wants to be discharged tomorrow. Mental Status Exam Mental Status Exam Patient Appearance: Appropriate Patient Orientation: Person and Situation Level of Consciousness: Awake Patient Behavior: Guarded and Cooperative Mood Description: Withdrawn Affect Description: Constricted Patient Cognition Impaired: Yes Ability to Follow Directions: Good Speech Pattern: Clear Hallucinations: None Delusions: Paranoid Ideation and Ideas of Reference Thought Process: Distracted and Slowed Thinking Thought Content: positive for [place] and positive for Poverty of Content Judgement: Fair Diagnostics Vital Signs (24Hr): Vital Signs - 24 hr 05/13/24 20:00 05/14/24 09:12 Temperature 97.6 F 98.1 F Pulse Rate 69 70 Respiratory Rate 16 16 Blood Pressure 142/69 H 156/70 H Pulse Oximetry 97 96 Oxygen Delivery Method Room Air Room Air BMI result Body Mass Index 24.7 Labs 05/08/24 14:45 05/09/24 14:14 Medications Medications Current Medications Acetaminophen (Acetaminophen 325 Mg Tablet) 650 mg PO Q6H PRN PRN Reason: pain Last Admin: 05/14/24 15:10 Dose: 650 mg Al Hydroxide/Mg Hydroxide (Magnesium Hydrox/Alum Hydrox 30 Ml Oral.Susp) 30 ml PO Q6H PRN PRN Reason: Heartburn/Nausea Last Admin: 05/11/24 10:06 Dose: 30 ml Buspirone HCl (Buspirone Hcl 10 Mg Tablet) 10 mg PO TID FOR[facility]LY [facility], [facility] Last Admin: 05/14/24 15:10 Dose: 10 mg Calcium Carbonate (Calcium Oyster Shell Elemental 500 Mg Tablet) 500 mg PO DAILY [facility], [facility] Last Admin: 05/14/24 09:08 Dose: 500 mg Cyanocobalamin (Cyanocobalamin (Vitamin B-12) 1,000 Mcg Tablet) 1,000 mcg PO DAILY [facility], [facility] Last Admin: 05/14/24 09:08 Dose: 1,000 mcg Loratadine (Loratadine 10 Mg Tablet) 10 mg PO DAILY [facility] Last Admin: 05/14/24 09:08 Dose: 10 mg Magnesium Hydroxide (Milk Of Magnesia 30 Ml Oral.Susp) 30 ml PO DAILY PRN PRN Reason: Constipation Last Admin: 05/11/24 09:26 Dose: 30 ml Multivitamins/Vitamin C (Multivitamin Tablet) 1 tab PO DAILY [facility] Last Admin: 05/14/24 09:08 Dose: 1 tab Paroxetine HCl (Paroxetine Hcl 30 Mg Tablet) 30 mg PO DAILY [facility] Last Admin: 05/14/24 09:08 Dose: 30 mg Polyethylene Glycol (Polyethylene Glycol 3350 17 Gm Powd.Pack) 17 gm PO DAILY PRN PRN Reason: Constipation Last Admin: 05/11/24 18:53 Dose: 17 gm Trazodone HCl (Trazodone Hcl 50 Mg Tablet) 50 mg PO BEDTIME PRN PRN Reason: Insomnia Vitamin D (Cholecalciferol (Vitamin D3) 25 Mcg Tablet) 25 mcg PO DAILY [facility] Last Admin: 05/14/24 09:08 Dose: 25 mcg Allergies Allergies Allergy/AdvReac Type Severity Reaction Status Date / Time nut - unspecified Allergy Severe Anaphylaxis Verified 05/08/24 14:03 tree nut Allergy Severe Anaphylaxis Verified 05/08/24 14:03 gluten Allergy Unknown Verified 05/08/24 14:03 ibuprofen Allergy Unknown Verified 05/08/24 14:03 lactose Allergy Unknown Verified 05/08/24 14:03 lamotrigine Allergy Unknown Verified 05/08/24 14:03 Peanut and Related Legumes Allergy Unknown Verified 05/08/24 14:03 [Peanut (Legumes)] nuts Allergy Severe Hives Uncoded 05/08/24 14:03 Assessment & Plan Assessment & Plan (1) Bipolar disorder: Qualifiers: Active/Remission status: currently active Current bipolar episode type: hypomanic Qualified Code(s): F31.0 - Bipolar disorder, current episode hypomanic Status: Acute Code(s): F31.9 - Bipolar disorder, unspecified Plan Ms. Ng is a 74 year-old woman with hx of Bipolar disorder who was brought via EMS from [facility] due to increase paranoia, and apparently had made suicidal statements. On the unit, pt denies SI/HI. However, she presents with paranoid delusions. We discussed risks, benefits and alternative treatment options. She declines taking antipsychotic. She does ask for paxil and buspar which have been continued. PLAN 1. pt signed 3 day notice. No safety concerns in terms of SI or HI. May leave at time of expiration of 3 day. 05/12: continue current management and treatment plan. 05/13: continue current management and treatment plan. 05/14 keep same treatment, discharge tomorrow Reason for continued inpatient stay Substantial Risk for: inability to function, rapid decompensation and med/psych decompensation Time Spent With Patient Time: Total time managing care of this patient today __20__ minutes.
[2024-05-14 19:43] VITALS: BP 147/68; PULSE 75; RESP 16; TEMP 36.5; O2SAT 95
[2024-05-15 08:00] VITALS: BP 129/71; PULSE 94; RESP 17; TEMP 36.5; O2SAT 98
--- NOTE | 2024-05-15 08:16 | P.DS_ITS ---
DS: Providers Provider Date of Service: 05/15/24 Date of admission: 05/09/24 11:52 Date of discharge: 05/15/24 Primary care physician: Unknown Physician DS: Diagnosis Discharge Diagnosis (1) Bipolar disorder: Status: Acute DS: Medications Discharge Medications Home Medications: Previous Rx's ?Medication ?Instructions ?Recorded calcium carbonate (Oyster Shell 500 mg PO DAILY 30 days #30 tabs 04/27/24 Calcium 500) acetaminophen 500 mg tablet 500 mg PO Q6H PRN pain 30 days #30 05/11/24 tabs buspirone 10 mg tablet 10 mg PO TID 30 days #90 tabs 05/11/24 cetirizine 10 mg tablet 10 mg PO DAILY 30 days #30 tabs 05/11/24 cholecalciferol (vitamin D3) 25 25 mcg PO DAILY #90 tabs 05/11/24 mcg (1,000 unit) tablet cyanocobalamin (vitamin B-12) 1,000 mcg PO DAILY 30 days #30 tabs 05/11/24 1,000 mcg tablet multivitamin (Daily-Mary Ann tablet) 1 tab PO DAILY 30 days #30 tabs 05/11/24 paroxetine HCl 30 mg tablet 30 mg PO DAILY #30 tabs 05/11/24 Mental Status Exam Mental Status Exam Patient Appearance: Well Grooomed and Appropriate Patient Orientation: Person and Situation Level of Consciousness: Awake and Appropriate Patient Behavior: Guarded and Passive Mood Description: Withdrawn Affect Description: Constricted Patient Cognition Impaired: No Ability to Follow Directions: Good Speech Pattern: Clear Hallucinations: None Delusions: Ideas of Reference Thought Process: Goal Oriented Thought Content: positive for [place] and positive for Circumstantial Judgement: Fair Data Data Completed and Pending Completed studies during hospitalization [Text1]: 05/08/24 05/09/24 05/10/24 14:45 14:14 08:48 WBC 5.5 RBC 4.53 Hgb 13.9 Hct 40.0 MCV 88.3 MCH 30.7 MCHC 34.8 RDW 13.8 Plt Count 215 MPV 9.5 Immature Gran % (Auto) 0.2 Neut % (Auto) 73.9 H Lymph % (Auto) 17.9 L [place] % (Auto) 6.0 Eos % (Auto) 1.6 Baso % (Auto) 0.4 Lymph # (Auto) 1.0 L [place] # (Auto) 0.3 Eos # (Auto) 0.1 Baso # (Auto) 0.0 Abs Immat Gran (auto) 0.01 Absolute Neuts (auto) 4.1 Absolute Nucleated RBC 0.000 Nucleated RBC % (auto) 0.0 Sodium 141 141 Potassium 4.0 4.3 Chloride 103 106 Carbon Dioxide 26 29 Anion Gap 16 10 L BUN 12 12 Creatinine 0.75 0.81 Estim Creat Clear Calc 54.8 50.7 Estimated GFR > 60 > 60 Random Glucose 99 Fasting Glucose 133 H Estimat Average Glucose 103 Hemoglobin A1c % 5.2 Calcium 9.4 9.8 Magnesium 1.9 Total Bilirubin 0.5 0.5 AST 32 H 31 ALT 18 21 Alkaline Phosphatase 71 74 Total Protein 7.6 7.6 Albumin 4.5 4.4 Triglycerides Cholesterol LDL Cholesterol, Calc HDL Cholesterol Vitamin B12 1890 H Folate 13.8 TSH Urine Color Yellow Urine Appearance Clear Urine pH 7.0 Ur Specific [place] 1.010 Urine Protein Negative Urine Glucose (UA) Negative Urine Ketones Negative Urine Blood Negative Urine Nitrite Negative Ur Leukocyte Esterase Small (1+) H Urine RBC 0-2 Urine WBC 0-5 Ur Squamous Epith Cells 0-2 Urine Bacteria None Seen Hyaline Casts 0-2 Urine Opiates Screen POSITIVE H Ur Buprenorphine Scrn Not Detected Ur Oxycodone Screen Not Detected Urine Methadone Screen Not Detected Urine Fentanyl Screen Not Detected Ur Barbiturates Screen Not Detected Ur Phencyclidine Scrn Not Detected Ur Amphetamines Screen Not Detected U Benzodiazepines Scrn Not Detected Urine Cocaine Screen Not Detected U Marijuana (THC) Screen Not Detected Ethyl Alcohol < 10 05/11/24 07:55 WBC RBC Hgb Hct MCV MCH MCHC RDW Plt Count MPV Immature Gran % (Auto) Neut % (Auto) Lymph % (Auto) [place] % (Auto) Eos % (Auto) Baso % (Auto) Lymph # (Auto) [place] # (Auto) Eos # (Auto) Baso # (Auto) Abs Immat Gran (auto) Absolute Neuts (auto) Absolute Nucleated RBC Nucleated RBC % (auto) Sodium Potassium Chloride Carbon Dioxide Anion Gap BUN Creatinine Estim Creat Clear Calc Estimated GFR Random Glucose Fasting Glucose Estimat Average Glucose Hemoglobin A1c % Calcium Magnesium Total Bilirubin AST ALT Alkaline Phosphatase Total Protein Albumin Triglycerides 168 H Cholesterol 213 H LDL Cholesterol, Calc 122 H HDL Cholesterol 58 Vitamin B12 Folate TSH 2.68 Urine Color Urine Appearance Urine pH Ur Specific [place] Urine Protein Urine Glucose (UA) Urine Ketones Urine Blood Urine Nitrite Ur Leukocyte Esterase Urine RBC Urine WBC Ur Squamous Epith Cells Urine Bacteria Hyaline Casts Urine Opiates Screen Ur Buprenorphine Scrn Ur Oxycodone Screen Urine Methadone Screen Urine Fentanyl Screen Ur Barbiturates Screen Ur Phencyclidine Scrn Ur Amphetamines Screen U Benzodiazepines Scrn Urine Cocaine Screen U Marijuana (THC) Screen Ethyl Alcohol 05/08/24 Unknown Urine clean catch - Clean Catch Midstream Urine Culture - Final DS: Summary Hospital Course Hospital Course: This is a 74-year-old female resident of senior living facility referred to the emergency room by crisis team ZANDER so since she complained of paranoia and accusing staff. She was assessed by the team and transferring to this facility for psychiatric stabilization. Please see the HPI for further information admission. On admission the patient reported that she was feeling better, she reported that she was having some thoughts the for wanted to hurt her at the senior living facility. While she was admitted she adamantly refused the use of antipsychotics. The patient is very well known by this team since she was admitted in November last year. Even though that the patient had some paranoid symptoms, there were no thought process disorder and we decided to keep her on Paxil and BuSpar as prescribed before and she reported it was effective. The patient's mood improved, she was future oriented and since there were no safety concerns discharge planning was discussed. Time spent discussing smoking cessation with patient: 3 to 10 minutes Status at Discharge Cognitive/behavioral status at discharge: At baseline Functional status at discharge: independent ambulation Overall status at discharge: patient is back to baseline Time Spent with Patient Time attestation: Total time managing care of this patient today _30___ minutes. Time spent: Less than 30 minutes Discharge Plan Discharge Anticipated Discharge Date/Time: 05/15/24 10:00 Patient Disposition: er [facility] Discharge Diagnosis: Bipolar disorder Referrals: [facility] [Other] - 05/15/24 (Transfer back to [facility] Monday 05/15. [facility] 05/22/24. ) Discharge Medications: Continued multivitamin [Daily-Mary Ann] Tablet 1 tab PO DAILY 30 Days Qty: 30 0RF cetirizine 10 mg tablet 10 mg PO DAILY 30 Days Qty: 30 0RF cyanocobalamin (vitamin B-12) 1,000 mcg tablet 1,000 mcg PO DAILY 30 Days Qty: 30 0RF acetaminophen 500 mg tablet 500 mg PO Q6H PRN (Reason: pain) 30 Days Qty: 30 12RF paroxetine HCl 30 mg tablet 30 mg PO DAILY Qty: 30 0RF buspirone 10 mg tablet 10 mg PO TID 30 Days Qty: 90 0RF Rx Instructions: administer at 0500, 1200 and 1700 cholecalciferol (vitamin D3) 25 mcg (1,000 unit) tablet 25 mcg PO DAILY Qty: 90 2RF Discontinued calcium carbonate [Oyster Shell Calcium 500] 500 mg calcium (1,250 mg) tablet 500 mg PO DAILY 30 Days Qty: 30 0RF Discharge Orders: Discharge Order (Routine); Ordered 05/15/24 Ordered By: Edi Bernal Diet: Advance to usual diet Activity on Discharge: As tolerated Stand Alone Forms: Patient Portal Discharge page Print Language: Nicaraguan Care Plan Goals: Care plan goals achieved in this admission Health Concerns: Continue with primary care physician and other outpatient providers Plan of Treatment: Continue with psychiatric treatment as an outpatient. Assessment: The patient is an elderly female with a past history of bipolar disorder, cluster B personality traits and OCD who was admitted for increased aggressive behavior and paranoia that resolved and we restarted his regular medications. At this moment she is safe to go back to the senior living facility. No safety concerns.
[2024-05-15] MEDS: Multivitamin TABLET 1 TAB PO (08:43)
[2024-05-15] MEDS: Loratadine 10 MG TABLET PO (08:43)
[2024-05-15] MEDS: busPIRone HCl 10 MG TABLET PO (08:43)
[2024-05-15] MEDS: Calcium Oyster Shell Elemental 500 MG TABLET PO (08:44)
[2024-05-15] MEDS: PARoxetine HCL 30 MG TABLET PO (08:44)
[2024-05-15] MEDS: Cyanocobalamin (Vitamin B-12) 1,000 MCG TABLET 1000 MCG PO (08:45)
[2024-05-15] MEDS: Cholecalciferol (Vitamin D3) 25 MCG TABLET PO (08:45)
[2024-05-15] MEDS: Acetaminophen 325 MG TABLET 650 MG PO (08:47)
== END 2024-05-15 10:49 | disposition skilled nursing facility (03) | DRG 885 ==
LOC: HO.ED 19:22 → HO.PGERI 05-09 12:09
PROVIDERS: Physician Assistant; Admitting Provider Social Worker; Emergency Provider Emergency Medicine Emergency Medical Services; Visit Provider Social Worker
DX: F31.0 Bipolar disorder, current episode hypomanic (principal); R45.851 Suicidal ideations; Z87.891 Personal history of nicotine dependence; Z79.899 Other long term (current) drug therapy
CPT/HCPCS: 36415; 80053; 80061; 80307; 81001; 82607; 82746; 83036; 83735; 84443; 85025; 87086; 93005; 99285

== ENCOUNTER 2024-05-09 11:52 | Outpatient (BNV) | payer MEDICARE, MEDICAID, SELFPAY | END 2024-05-09 15:14 | PROVIDERS: Admitting Provider Social Worker; Emergency Provider Emergency Medicine Emergency Medical Services; Visit Provider Internal Medicine Cardiovascular Disease | DX: Z13.6 Encounter for screening for cardiovascular disorders (principal) | CPT/HCPCS: 93010 ==

== ENCOUNTER → 2024-05-09 11:52 | Outpatient (BNV) | payer MEDICARE, MEDICAID, SELFPAY | PROVIDERS: Admitting Provider Social Worker; Emergency Provider Emergency Medicine Emergency Medical Services; Visit Provider Social Worker | DX: F31.0 Bipolar disorder, current episode hypomanic (principal) | CPT/HCPCS: 99238 ==

== ENCOUNTER 2025-01-24 17:59 | Emergency (ER) | payer MEDICARE, SELFPAY ==
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
--- OUTSIDE RECORDS SUMMARY | 2025-01-24 08:28 | XMS_ITS | Continuity of Care Document ---
Author Organization [facility] Address [address] [address] Phone Care Team Providers Care Marine Engineering Professor Name Role Phone Hugo ALFONSO, Aqib Unavailable Unavailable Allergies, Adverse Reactions, Alerts Substance Reaction Status Criticality peanut Anaphylaxis(severe) Active No Infor mation lactose Active No Information ibuprofen Active No Information gluten Active No Information tree nut Anaphylaxis Active No Information nut - unspecified Anaphylaxis Active High Medications Medication Instructions Dosage Effective Dates (start - stop) Status Comments multivitamin ORAL take one tablet by oral route daily - Active Paxil 30 mg tablet take 1 tablet by oral route every day 30 MG - Active To be start ed the week of 12/03 after 1 week of 20mg dose buspirone 10 mg tablet SE program order: Take 1 tablet by oral route at 11am at SE program. - Active Please send to SE buspirone 10 mg tablet Take 1 tablet by mouth 3 times daily at 5AM, 11AM and 5PM. - Active acetaminophen 500 mg tablet take 2 tablet by oral route three times daily 5am 11am 5pm - Active Not to exceed 3000mg daily Lidocaine Pain Relief 4 % topical patch Apply patch to lower back daily. On for 12hrs and off for 12hrs - Active pantoprazole 40 mg tablet,delayed release Take 1 tablet by oral route 2 times every day. - Active cetirizine 10 mg tablet take 1 tablet by oral route every day 10 MG - Active Vitamin B-12 1,000 mcg tablet take one tablet by mouth daily - Active Vitamin D3 25 mcg (1,000 unit) tablet take one tablet by mouth daily - Active Oyster Shell Calcium-500 500 mg (as carbonate 1,250 mg) tablet take one tablet by mouth daily - Active hydrocortisone 1 % topical cream apply by topical route 2 times every day a thin layer to the affected area(s)- taken from house stock - Active EpiPen 2-Enrique 0.3 mg/0.3 mL injection, auto-injector inject 0.3 milliliter by intramuscular route once as needed for anaphylaxis. May carry EpiPen in person. - Active allergy to nuts, gluten and lactose loperamide 2 mg capsule take 1 capsule by oral route after 1st loose stool, followed by 1 capsule after each subsequent loose stool not to exceed 16 mg/day 2 MG - Active Advance Directives Directive Yes / No Effective Date File Name No Information Encounters Encounter Description Practice Location Reason(s) For Visit Diagnoses Date Provider [facility], [address] [place] [address], [id number], tel:[phone] [place] No Information Dec-0 4-202 5 Hugo Aqib. [address] [place], [place], [id number], . tel:[phone] [facility], 1 [facility] [employer] [address] [place] [address], [id number], tel:[phone] [place] Acute Visit (chief complaint) No Information Dec-0 2- 5 Mendes [facility]. [facility] [place] [place] [id number], [place]. tel:[phone] [facility], 1 [facility] [employer] [address] [place] [address], [id number], [place] tel:[phone] [place] No Information Nov-0 3-202 5 Vaughn Emanuela. [facility] [place], [id number], [place]. tel:[phone] [facility], 1 [facility] [employer] [address] [place] [address], [id number], [place] tel:[phone] [place] No Information Oct-2 5 Prakash Shelli. [address] [facility] [place], [id number], [place]. tel:[phone] [facility], 1 [facility], [place], [place], [id number], [place] tel:[phone] [place] No Information Nov-2 - 5 [facility] Jacike. [address], [place], [place], [id number], [place]. tel:[phone] [facility], [address] [address], [place], [place], [id number], [place] tel:[phone] [place] Follow-up (chief complaint) Bipolar II disorder Oct-0 6 5 Hugo Aqib. [address] [place], [place], [id number], [place]. tel:[phone] [facility], [address] [address], [place], [place], [id number], [place] tel:[phone] [place] [address] No Information 0 5 Vaughn العلي. [facility] [place], [id number], [place]. tel:[phone] [facility], [address] [address], [place], [place], [id number], [place] tel:[phone] [place] Encounter for nutritional assessmentAt risk for inadequate oral intake Oct-0 2- 5 Normile Guera. [address] [place], [id number], [place]. tel:[phone] [facility], [address] [address], [place], [place], [id number], [place] tel:[phone] [place] Semi-Annual (chief complaint) Encounter for well adult exam without abnormal findingsGeneralized anxiety disorderBipolar II disorderObsessive-compu lsive disorder, unspecified typeAttention deficit hyperactivity disorder (ADHD), unspecified ADHD typePTSD (post-traumatic stress disorder)Age-related osteoporosis without current pathological fractureGastroesophagea l reflux disease without esophagitisCKD (chronic kidney disease) stage 2, GFR 60-89 ml/minNeuropathyAsthma- COPD overlap syndromeIdiopathic interstitial fibrosis Sep-3 0 5 Hugo Sanchez. [address] [place], [id number], [place]. tel:[phone] [facility], 1 [facility], [place], [place], [id number], [place] tel:[phone] [place] No Information Sep-2 5 Vaughn العلي. [address] [place], [id number], [place]. tel:[phone] [facility], 1 [facility] [address], [place], [place], [id number], [place] tel:[phone] [place] Follow-up (chief complaint) Bipolar II disorder Oct- 5 Aprilcarlos Vang. [address] [place], [id number], [place]. tel:[phone] [facility], 1 [facility], [place], [place], [id number], [place] tel:[phone] [place] Follow-up (chief complaint) Bipolar II disorder Sep- 5 April Taj. [address] [place], [id number], [place]. tel:[phone] [facility], 1 [facility] [address], [place], [place], [id number], [place] tel:[phone] [place] Acute Visit (chief complaint) Gastroesophageal reflux disease with esophagitis without hemorrhage Sep- 5 Prakash Marques. [address] [place], [place], [id number], [place]. tel:[phone] [facility], 1 [facility], [place], [place], [id number], [place] tel:[phone] [place] Acute Visit (chief complaint) Other chronic painInsomnia, unspecified typeGastroesophageal reflux disease without esophagitisBipolar II disorder 5 Theodate Nicole. [address] [place], [place], [id number], [place]. tel:[phone] [facility], [address] [facility] [address] [facility] [address] [place] [address], [id number], [place] tel:[phone] [place] [address] No Information 5 Theodate Nicole. [address] [place], [place], [id number], [place]. tel:[phone] [facility], 1 [facility] [address] [place] [address], [id number], [place] tel:[phone] [place] Encounter for rehabilitation evaluationLow back pain, unspecified back pain laterality, unspecified chronicity, unspecified whether sciatica present 5 Elie Keller. [address] [place], [place], [id number], [place]. tel:[phone] [facility], 1 [facility] [address] [address] [place] [address], [id number], [place] tel:[phone] [place] [address] Other specified personal risk factors, not elsewhere classified 5 Theodate Nicole. [address] [place], [place], [id number], [place]. tel:[phone] [facility], 1 [facility] [address] [place] [address], [id number], [place] tel:[phone] [place] [address] No Information 5 Theodate Nicole. [address] [place], [place], [id number], [place]. tel:[phone] [facility], 1 [facility] [place] [address], [id number], [place] tel:[phone] [place] No Information 5 Os Liyah. [address] [place], [place], [id number], [place]. tel:[phone] [facility], 1 [facility] [address], [place], [place], [id number], [place] tel:[phone] [place] Abnormal postureChro dino primary low back painOther chronic painEncounter for rehabilitation evaluation 5 Elie Keller. [address] [place], [place], [id number], [place]. tel:[phone] [facility], [facility] [address], [place], [place], [id number], [place] tel:[phone] [place] Abnormal postureLow back pain, unspecified back pain laterality, unspecified chronicity, unspecified whether sciatica present 5 Elie Keller. [address] [place], [id number], [place]. tel:[phone] [facility], 1 [facility] [address] [facility], [place], [place], [id number], [place] tel:[phone] [place] Chronic low back sam n, unspecified back pain laterality, unspecified whether sciatica presentOther chronic pain 5 Elie Keller. [address] [place], [id number], [place]. tel:[phone] [facility], 1 [facility] [address] [facility], [place], [place], [id number], [place] tel:[phone] [place] Abnormal postureChro dino low back pain, unspecified back pain laterality, unspecified whether sciatica presentOther chronic pain 5 Elie Keller. [address] [place], [id number], [place]. tel:[phone] [facility], 1 [facility] [address], [place], [place], [id number], [place] tel:[phone] [place] Encounter for rehabilitation evaluation 5 Elie Keller. [address] [place], [id number], [place]. tel:[phone] [facility], [address] [facility] [address] [place] [address], [id number], [place] tel:[phone] [place] Follow-up (chief complaint) Bipolar II disorderBilateral low back pain without sciatica, unspecified chronicity 5 Theodate Nicole. [address] [place] [address], [id number], [place]. tel:[phone] [facility], [facility] [address] [address] [place] [address], [id number], [place] tel:[phone] [place] Post Enrollment Evaluation (chief complaint)F ollow-up (chief complaint) Bipolar II disorderBilateral low back pain without sciatica, unspecified chronicity 5 Theodate Nicole. [address] [place] [address], [id number], [place]. tel:[phone] [facility], 1 [facility] [address] [place] [address], [id number], [place] tel:[phone] [place] Encounter for rehabilitation evaluation 5 Gustavo Luong. [address] [place], [place], [id number], [place]. tel:[phone] [facility], 1 [facility] [address] [place] [address], [id number], [place] tel:[phone] [place] PF1 (chief complaint) Hearing loss of left ear, unspecified hearing loss typeBipolar II disorder 5 Theodate Nicole. [address] [place] [address], [id number], [place]. tel:[phone] [facility], 1 [facility] [address] [place] [address], [id number], [place] tel:[phone] [place] SDR assessment (chief complaint) Obsessive-compulsive disorder, unspecified typePTSD (post-traumatic stress disorder)Bipolar II disorder 5 Theodate Nicole. [address] [place] [address], [id number], [place]. tel:[phone] [facility], 1 [facility] [address], [place], [place], [id number], [place] tel:[phone] [place] Acute Visit (chief complaint) Bipolar II disorder Apr-2 5 Vaughn العلي. [facility] [place], [id number], [place]. tel:[phone] [facility], 1 [facility] [address], [place], [place], [id number], [place] tel:[phone] [place] Bipolar II disorder Apr-2 5 Vaughn العلي. [address] [place], [place], [id number], [place]. tel:[phone] [facility], 1 [facility] [address], [place], [place], [id number], [place] tel:[phone] [place] Encounter for rehabilitation evaluation Apr-1 5 Gustavo Luong. [address] [place], [place], [id number], [place]. tel:[phone] [facility], 1 [facility], [place], [place], [id number], [place] tel:[phone] [place] Encounter for rehabilitation evaluation Apr-0 5 Elie Keller. [address] [place], [place], [id number], [place]. tel:[phone] [facility], 1 [facility] [address], [place], [place], [id number], [place] tel:[phone] [place] Encounter for nutritional assessmentAt risk for inadequate oral intake Apr-0 5 Normile Guera. [address] [place], [place], [id number], [place]. tel:[phone] [facility], 1 [facility] [address], [place], [place], [id number], [place] tel:[phone] [place] Post Enrollment Evaluation (chief complaint)c ontinued (chief complaint) Generalized anxiety disorderPTSD (post-traumatic stress disorder)Obsessive-comp ulsive disorder, unspecified typeAttention deficit hyperactivity disorder (ADHD), unspecified ADHD typeAsthma-COPD overlap syndromeIdiopathic interstitial fibrosisCKD (chronic kidney disease) stage 2, GFR 60-89 ml/minBipolar II disorderHistory of seasonal allergiesHistory of cataractHistory of arthritisNeuropathyHist ory of ETOH abuseBilateral hearing loss, unspecified hearing loss typeOsteoporosis without current pathological fracture, unspecified osteoporosis typeHealthcare maintenance Apr-0 5 Mendesmt SanchezZohra. [address], [place], [place], [id number], [place]. tel:[phone] [facility], 1 [facility], [place], [place], [id number], [place] tel:[phone] [place] No Information Apr- Vaughn Sanchezantha. [address], [place], [place], [id number], [place]. tel:[phone] Family History Family Member Type Diagnosis Age At Onset No Information Immunizations Vaccine Date Status Comments Fluzone High Dose administered Source: New Immunization Record Flu-aIIV3 unknown Source: Other R egistry Payers Payer name Insurance type Covered constitution party ID Authoriza tibrenda(s) [address] [id number] [address] [id number] [id number] Social History Type Description Quantity Date Captured Comments Sex Female Smoking Status No Information Sexual Orientation Straight or heterosexual Oct Gender Identity Female Chief Complaint And Reason For Visit No Information History Of Present Illness Encounter Date Complaint History Of Prese nt Illness Acute Visit Follow-up Norma is a 74 year s old female who was seen for a follow up visit. Pt has a significant psychiatric history and recently her provider has been titrating her medications for a better result. Pt was started on Paxil and titrated up to 20mg daily previously. Pt states that she continues to have symptoms and previously she ws on 30mg Paxil daily which alleviated her symptoms. She is asking to increase her Paxil to 30mg today. No other acute complaints or concerns offered today. Semi-Annual Norma is a 74 year s old female who is being seen today for her semiannual exam. She has been enrolled in the [facility] program since May 2024. Patient had been seen in the clinic today.Pt lives in the [facility].There was one ER visit and hospitalization in the last 6 months due to her psychiatric conditions. No SNF stays in the last 6 months.[facility] Medical Reviewed.Diagnoses Reviewed.No new diagnoses.No open referrals.Consults:-Audiology: Evaluated for and received hearing aides-Dental: [facility]-Psychiatry: Sees a MANAGER DEMAND for medication adjustmentScreenings: Deferred due to age and GOC 4 Ms:Mentation: Good historian, No memory issues noted-Orientation: A&Ox3-MOCA: Medications:-Medications reviewed.-No new medications at this timeMobility:-Ambulates: [place] -Falls: none in the past 6 months WMM:-Advance Directives reviewed: DNR/DNI-HCP on file: not invoked Follow-up Ppt seen at [facility] o discuss her antidepressant. Ppt was given new RX for citalopram last week. Ppt stated this agent has given her disturbing dreams/nightmares. Ppt also reports auditory and visual hallucinations, which are consistent with PMH and she did not associate with the medication. Ppt denies any SI/HI or intrusive thoughts, hallucinations presently. Ppt has tried numerous categories of antidepressant and anxiolytic medication. Ppt stated the only agent to have an effect on her mood was Paxil. Ppt and I discussed risks of using Paxil in advanced age. I discussed SE/AE. Ppt stated she understood the risks, but has responded well to Paxil and penny like to try again. Follow-up Ppt here for dis cussion of medication for anxiety and depression. PMH includes bipolar 2, anxiety. Ppt has tried several anxiolytic and antidepressant agents over the years. Most recently tried sertraline, paroxetine, ability. Ppt now taking Buspar ppt was interested in revisiting paroxetine, as well as adding lorazepam. We discussed all these agents. We agreed given age and risk factors, adding citalopram to her Buspar would be a suitable course of treatment. Of note: Ppt will be due for her semi 11/21/2024. Nursing will schedule.Of note: Ppt has hx of GERD and recently began BID pantoprazole 40 mg. Ppt has had a few days worth of this treatment and stated she is beginning to feel better with regard to reflux. I advised Ppt to continue this course and be mindful of dietary selection, which may contribute to GERD. Acute Visit Seeing azucena plascencia on behalf of her PCP. Patient is here for having epigastric pain that is radiating to her chest. Admits she is having acid reflux and thinks it is because of the johnson she is provided at her [facility]. She is currently on Lansoprazole 15mg but looks like the medication is not helping much. The reflux is all day long and not necessarily after eating meals. Reports having a lot of belching and hiccups. Denies any cough or throat agitation. Admits taking tums after meal helps the pain. Denies any lower GI problems. Physical ExamConstitutional/ M/ Psych: Alert, oriented x2, in no distress, Normal mood and affectHead: Normocephalic.Neck: Supple, Full range of motion.Respiratory: Clear to auscultation. No wheezing, rales or rhonchi.Cardiovascular: S1 S2 regular. N murmurs, rubs or gallops.Gastrointestinal: Abdomen soft, non-tender, non-distended. Normal bowel sounds.Neurologic: Cranial nerves II-XII grossly intact. No focal neurological deficits. Acute Visit 74 yo F with PMH bipolar disorder and anxiety seen for acute visit. PPT requesting to longer to attend day program suddenly when she was attending 5x/week. She is reporting she prefers to stay at home in her room at . She does not want to be told what to do anymore. She continues to be very jehovah's witness. She recently wrote a note to another resident that was inappropriate in which she denies writing. She is paranoid that the b2b account executive at dislikes her and trying to get her in trouble. PPT has a pattern of discontinuing medications she was doing well on and now services she was stable doing to stopping them suddenly without much explanation. signwriter was accompanied by PCN today and we both expressed our concern for her mental wellbeing she reported she is fine and prays and has some friends at and outside of . She expressed she is not interested in seeing a new therapist since her former one left. She is not interested in trying any new psychiatric medications or see a psychiatrist. She continues to deny she has bipolar disorder II. She denies SI/HI, delusions, or hallucinations. PPT reports enjoying seeing social work instructor for weekly check ins. PPT is happy about her new hearing aids. She reports they are functioning fairly well. PPT has chronic pain back pain after an incident prior to coming to and xray showing no acute abnormalities. PPT was also followed by PT services. She is requesting medication qid vs tid. PPT reporting whole back pain that is achy in quality that has not worsened. denies any changes in urination or continence, dysuria or pelvic pressure. denies pain radiating to other parts of her body. PPT reporting using OTC tums for management of symptom of acid reflux after meals and reporting it was effective at first and no longer as effective as it was for the past few weeks. SHe does have lemon tea three times a day and discussed how citrus can worsening symptoms. denies eating chocolate, ETOH, fried foods etc. 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 PPT reporting symptoms daily and requesting an alternative medication.PPT reporting chronic history of trouble falling asleep and requesting herbal supplement melatonin. -2024 Follow-up 74 yo f with PMH bipolar 2, anxiety, PTSD seen for follow up for medication nonadherence. last week ppt requested dose of medication to be adjusted and changed to qpm to improve symptoms of somnolence during the day. PPT told nursing over the weekend she doesn't plan on taking medication any longer because she feels better without it. PPT reporting worsening nightmares while on medication. PPT has hx of accusatory behavior and at times remembering things differently than how they happened. Discussed with patient risks involved with not taking medication like worsening mood that may require hospitalization. PPT is aware she needs a mood stabilizer, but she does not feel she needs it now. Discussed depth with patient that mental illness does not just go away and that going off medication abruptly can lead to harmful consequences. Discussed risk of worsening hallucinations, nightmares, delusions, suicidal or homicidal ideation. The patient denies ever wanting to hurt herself or anyone else. the patient is high risk and is competent to make her own decisions. patient was given behavioral health hotline for crisis and had nursing visit. PPT adamant that she does not need medication regularly at this time and would like to take medication as needed. Discussed with patient that she will not benefit from the medication taking it sporadically, it must be taken consistently for several weeks to truly reap the benefits. Plastic Process Technician discussed concerns with her going off psych meds and since she only had buspar for management of anxiety at this time. PPT to start seeing clinician on 07/23/24 weekly and has social support with friends at [facility] and the reverend she regularly speaks to. Previously, when Norma first came to us she had been on Paxil 30 milligrams daily and reported it did not work anymore. PCP consulted with Dr. Parekh while waiting to get patient a visit with a psychiatrist with a plan to wean off Paxil and start on sertraline. However, when patients started sertraline, she began to have auditory hallucinations and h ear be my friend that scared her. She wanted to at first wanted to come off sertraline and go back to the Paxil. However, 06/15/24 she reported wanting to go [place] and go off for the Paxil and sertraline. Patient reports that she's gone [place] in the past on medications and has had no problems.PPT continues on apap with some relief for low back pain and interested in other modalities for pain management. Results of Xray done 07/12 show no acute fx or acute abnormality. LUMBAR SPINE 2 OR 3 VIEWSResults: There is generalized osteopenia. Mild thoracolumbar dextroscoliosis. Mildmultilevel degenerative changes. No overt acute fracture. The soft tissues areunremarkable.Conclusion: Chronic changes without overt acute abnormality.Electronically signed by MARCO A WINCHESTER M.D. 07/12/2024 2:05:11 PM EDT. Post Enrollment Evaluation Follow-up 74 yo f with PMH bipolar 2, anxiety, PTSD seen for follow up. PPT continues on abilify 10mg qam for management of bipolar II. PPT has been requesting dosing of medication to be done at bedtime due to increased daytime sleepiness. PPT also requesting dose increase as she has been tolerating current dose fairly well, the no new significant behaviors reported. Told patient that she must be continue to be adherent to medication to avoid complications. . PPT reports she feels like its working. She continues to have medications administered via [facility] program and is happy with administration schedule. PPT with no complaints of suicidal or homicidal ideation or delusions at this time. PPT continues to pray regularly and speaks Reverend every other week and spends times with friends at [facility].Xray pending for further evaluation of PPT c/o back pain since her hospitalization several months ago. PPT emergency personnel were rough with her prior to her being sent out for diagnosis of hypomania. She reports lower back pain horizontally across her back that is worse with bending and better with lying down. described as nagging mild to moderate discomfort. continues on apap for management. denies pain radiating to BLE, numbness, or urine or bowel incontinence. denies increased warmth, redness, or edema. PF1 74 yo f with PMH bipolar 2, anxiety, PTSD seen for post enrollment follow up [address] [facility]. CAMPBELL has extensive and complex psychiatric history with multiple in patient psych hospitalizations and multiple failed trials on medications (please see previous note for reference). CAMPBELL was seen by neuropsychology service director last Tuesday and recommended to start on abilify. PPT had been exhibiting depressive, paranoid, and accusatory behaviors. PPT had already been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
[2025-01-24 18:15] VITALS: BP 142/63; BP 144/72; PULSE 55; PULSE 56; RESP 16; TEMP 36.6; O2SAT 100; BMI 19.6
--- NOTE | 2025-01-24 20:03 | ED.GENADULT ---
HPI - General Adult General Chief complaint: Fall Stated complaint: fall from standing, -loc/head strike, back pain Time Seen by Provider: 01/24/25 19:42 Source: patient, EMS, RN notes reviewed and old records reviewed Mode of arrival: EMS Limitations: no limitations History of Present Illness ED Provider: Alexandra HPI narrative: Patient is a 74 year old female with a pmhx of PTSD, CKD stage 3a, OCD, asthma, osteopenia, and bipolar disorder presenting today after falling at her assisted living. Pt states her doctor recommended she start a bland diet a couple days ago. She was walking at about 5pm down the hallway, felt dizzy and fell into the wall on her right side, then onto the ground on her left side. No LOC and pt is not on blood thinners. Pt originally denied headstrike, however, developed a pain in the left back of her head and headache. Pain in her left elbow and knee. Has full ROM in all extremities. Denies chest pain, SOB, current dizziness. Related Data Previous Rx's ?Medication ?Instructions ?Recorded acetaminophen 500 mg tablet 500 mg PO Q6H PRN pain 30 days #30 05/11/24 tabs buspirone 10 mg tablet 10 mg PO TID 30 days #90 tabs 05/11/24 cetirizine 10 mg tablet 10 mg PO DAILY 30 days #30 tabs 05/11/24 cholecalciferol (vitamin D3) 25 25 mcg PO DAILY #90 tabs 05/11/24 mcg (1,000 unit) tablet cyanocobalamin (vitamin B-12) 1,000 mcg PO DAILY 30 days #30 tabs 05/11/24 1,000 mcg tablet multivitamin (Daily-Mary Ann tablet) 1 tab PO DAILY 30 days #30 tabs 05/11/24 paroxetine HCl 30 mg tablet 30 mg PO DAILY #30 tabs 05/11/24 Allergies Allergy/AdvReac Type Severity Reaction Status Date / Time nut - unspecified Allergy Severe Anaphylaxis Verified 01/24/25 18:17 tree nut Allergy Severe Anaphylaxis Verified 01/24/25 18:17 gluten Allergy Unknown Verified 01/24/25 18:17 ibuprofen Allergy Unknown Verified 01/24/25 18:17 lactose Allergy Unknown Verified 01/24/25 18:17 lamotrigine Allergy Unknown Verified 01/24/25 18:17 Peanut and Related Legumes Allergy Unknown Verified 01/24/25 18:17 (Peanut (Legumes)) nuts Allergy Severe Hives Uncoded 01/24/25 18:17 Review of Systems Constitutional: Constitutional: Reports as per HPI, Denies chills, Denies fatigue, Denies fever(s) and Denies headache(s) ENT: Reports dizziness and Denies headache(s) Cardiovascular: Cardiovascular: Denies chest pain and Denies dyspnea Respiratory: Respiratory: Denies cough and Denies dyspnea Gastrointestinal: Gastrointestinal: Denies abdominal pain, Denies constipation and Denies vomiting Genitourinary: Genitourinary: Denies dysuria Musculoskeletal: Musculoskeletal: Reports back pain Integumentary/Breasts: Skin/Breast: Denies rash and Reports wounds (left elbow skin tear) Neurologic: Reports dizziness, Denies headache(s) and Denies focal weakness Endocrine: Endocrine: Denies fatigue PMFSH Past Medical History Medical History Anxiety and depression Trigger finger Asthma-COPD overlap syndrome Surgical History H/O tubal ligation History of hip replacement Family History Family History Mother Mental health disorder Thyroid disorder Sister Mental health disorder Cancer Sister Mental health disorder Cancer Son Substance abuse Mental health disorder Diabetes Maternal Grandmother Hypertension Maternal Grandfather Asthma Social History Social History Household Members: Other Household Members Other:: [facility] Housing: Assisted Living Facility Are you a primary animal care service worker to a significant other at home: No Do you presently have visiting nurse or other home services: No Alcohol intake: never Patient Tobacco Use Status: Former Tobacco user Tobacco use type: Cigarette Cigarettes Per Day: 10 Smoked in Last 30 Days: No e-Cigarette/Vaping Use: Never Used Second Hand Smoke Exposure: No Use of substances other than those prescribed or required for medical reasons: No Advance Directives: Yes Advance Directives on File: Yes Advance Directives Date on File: 01/24/25 Do you have a plan to hurt others: No Plan service: No Current occupational status: retired Sexual orientation: Straight/Heterosexual Cognitive needs: No Hearing needs: Yes Vision needs: No Physical Exam ED Vital Signs: Vital Signs - 24 hr 01/24/25 18:15 01/24/25 20:04 01/24/25 23:07 Temperature 97.9 F 97.6 F Pulse Rate 56 63 48 L Respiratory Rate 16 18 16 Blood Pressure 142/63 H 109/65 114/59 L Pulse Oximetry 100 99 98 Oxygen Delivery Method Room Air Room Air Room Air 01/25/25 00:53 Temperature Pulse Rate 59 Respiratory Rate Blood Pressure 103/48 L Pulse Oximetry Oxygen Delivery Method BMI result Body Mass Index 19.6 Const General: healthy appearing, comfortable, no acute distress, alert and awake Nutritional Appearance: well nourished Orientation/consciousness: patient oriented x3 HENMT Head: Yes normocephalic and Yes atraumatic Throat: Yes posterior oropharynx normal Eyes Eyelids: Yes eyelids normal Conjunctivae: conjunctivae normal Sclerae: sclerae normal Corneas: corneas normal Pupils: Equal, round and reactive pupils present EOM: EOMs intact bilaterally Resp Effort & Inspection: normal respiratory effort, able to speak in complete sentences, no audible wheezes and not labored Auscultation: clear to auscultation bilaterally Cardio Rate: regular rate Rhythm: regular rhythm GI Inspection: No distended Palpation (GI): Soft to palpation, not firm, nontender, no guarding and not rigid Back/Spine/Pelvis Other: C-collar present Cervical Spine: collar present Skin Other: There has a small skin tear to the left elbow, no deep wounds or lacerations. Bleeding controlled General skin exam: elasticity normal Neuro Other: The patient's gait is not ataxic General: patient oriented x3 and gait normal Cranial nerves: Yes CN's II-XII intact bilaterally, Yes Equal, round and reactive pupils present and Yes Bilaterally intact EOM present Cognition (Neuro): normal cognition Motor exam (neuro): 5/5 motor strength present throughout Extrem Other: Moving all extremities well without any obvious deformities Course Reevaluation(s) Reevaluation #1: Patient's workup largely unremarkable, her labs are reassuring, her blood pressure has been stable, she is not orthostatic, urinalysis did not show UTI. The patient reports that she feels better. Her heart rate did drop into the high 40s at 1 point. She is not symptomatic when this happened and I do not believe this was the cause of her fall today. Given her recent diarrhea and decreased appetite I suspect she has a viral syndrome. She is not vomiting or having active diarrhea. The patient feels comfortable being discharged back to her nursing facility, [facility]. She will be discharged back in stable condition Time: 01:42 Medical Decision Making Medical Decision Making [facility] Narrative: 74-year-old female presents for evaluation after a fall. She reports that she got dizzy and fell. Denies loss of consciousness. She is alert and oriented, NIH stroke score of 0. She is in his C-collar. Plan for CT scan of the brain and cervical spine to evaluate for traumatic injury. At this point in his unclear why the patient became dizzy though she does admit to having diarrhea over last few days and consuming a bland diet. She may have some dehydration or SHORTY. Plan for EKG to evaluate for ischemic changes Differential Diagnosis Differential Diagnoses: The differential diagnosis associated with the presentation includes Dehydration Syncope Intracranial hemorrhage Cervical fracture Contusion Skin tear Admission/Observation Consideration of admission/observation: Escalation of care including admission/observation considered Lab Data [facility] Lab Attestation statement: I reviewed the patient's lab results. No leukocytosis or significant anemia. No significant electrolyte abnormalities warranting intervention. No significant SHORTY. BUN is slightly elevated to 19 with a normal creatinine of 0.82 which could be due to the patient's recent diarrhea and/or decreased oral intake 01/24/25 20:59 01/24/25 20:59 Labs: Lab Results 01/24/25 01/25/25 Range/Units 20:59 01:13 WBC 3.5 L (4.8-10.8) X10*3/uL RBC 3.84 L (4.20-5.50) X10*6/uL Hgb 12.1 (12.0-16.0) g/dl Hct 36.6 L (37.0-47.0) % MCV 95.3 (80.0-98.0) fL MCH 31.5 (27.0-33.0) pg MCHC 33.1 (31.0-35.0) g/dl RDW 14.1 (11.0-16.0) % Plt Count 156 L D (160-400) X10*3/uL MPV 9.8 (9.4-12.3) fL Immature Gran % (Auto) 0.6 H (0.0-0.4) % Neut % (Auto) 46.4 (45-73) % Lymph % (Auto) 43.2 H (20-40) % [place] % (Auto) 7.2 (2-11) % Eos % (Auto) 2.0 (0-4) % Baso % (Auto) 0.6 (0-2) % Lymph # (Auto) 1.5 (1.2-4.9) X10*3/uL [place] # (Auto) 0.3 (0.1-1.2) X10*3/uL Eos # (Auto) 0.1 (0.0-0.4) X10*3/uL Baso # (Auto) 0.0 (0.0-0.2) X10*3/uL Abs Immat Gran (auto) 0.02 (0.00-0.03) X10*3/uL Absolute Neuts (auto) 1.6 L (2.0-8.3) x10*3/uL Absolute Nucleated RBC 0.000 (0.0-0.012) X10*3/uL Nucleated RBC % (auto) 0.0 (0.0-0.2) /100WBC Sodium 138 (135-145) mmol/L Potassium 3.9 (3.3-5.1) mmol/L Chloride 106 (96-108) mmol/L Carbon Dioxide 26 (22-29) mmol/L Anion Gap 10 L (12-20) BUN 19 H (9-16) mg/dL Creatinine 0.82 (0.5-1.4) mg/dL Estim Creat Clear Calc 44.7 Estimated GFR > 60 Random Glucose 89 (60-115) mg/dL Calcium 8.7 D (8.4-10.2) mg/dL Magnesium 2.0 (1.6-2.6) mg/dL Total Bilirubin 0.4 (0.0-1.0) mg/dL AST 37 H (5-31) U/L ALT 34 H (0-31) U/L Alkaline Phosphatase 61 (39-117) U/L Total Creatine Kinase 63 (26-140) U/L Troponin I High Sens < 2.7 (<3.5-17.0) ng/L Total Protein 6.1 L (6.5-8.0) g/dL Albumin 4.2 (3.5-5.0) g/dL Lipase 31 (8-78) U/L Urine Color Yellow Urine Appearance Clear Urine pH 7.0 (5.0-9.0) Ur Specific [place] 1.010 (1.005-1.025) Urine Protein Negative (Neg-Trace) mg/dL Urine Glucose (UA) Negative (Negative) mg/dL Urine Ketones Negative (Negative) mg/dL Urine Blood Negative (Negative) Urine Nitrite Negative (Negative) Ur Leukocyte Esterase Small (1+) H (Negative) Urine RBC 0-2 (0-2) /HPF Urine WBC 0-5 (0-5) /HPF Ur Squamous Epith Cells 0-2 (0-2) /HPF Urine Bacteria None Seen (None Seen) Hyaline Casts 0-2 (0-2) /LPF Influenza Type A (PCR) NEGATIVE (Negative) Influenza Type B (PCR) NEGATIVE (Negative) RSV RNA Qual (PCR) NEGATIVE (Negative) SARS-CoV-2 RNA (RT-PCR) NEGATIVE (Negative) Independent Interpretation I performed an independent interpretation of an: EKG Interpretation: Sinus bradycardia with a rate of 51 beats minute. Discharge Plan Discharge Clinical Impression: Fall, Dizziness Patient Disposition: Home, Self-Care Instructions: Fall Prevention for Older Adults (ED), Dizziness (ED) Additional Instructions: Your workup in the ER today was reassuring. I recommend that you drink lots of fluids, small sips at a time. Follow up with your primary doctor, return for new or worsening symptoms Prescriptions: No Action multivitamin [Daily-Mary Ann] Tablet 1 tab PO DAILY 30 Days Qty: 30 0RF cetirizine 10 mg tablet 10 mg PO DAILY 30 Days Qty: 30 0RF cyanocobalamin (vitamin B-12) 1,000 mcg tablet 1,000 mcg PO DAILY 30 Days Qty: 30 0RF acetaminophen 500 mg tablet 500 mg PO Q6H PRN (Reason: pain) 30 Days Qty: 30 12RF paroxetine HCl 30 mg tablet 30 mg PO DAILY Qty: 30 0RF buspirone 10 mg tablet 10 mg PO TID 30 Days Qty: 90 0RF Rx Instructions: administer at 0500, 1200 and 1700 cholecalciferol (vitamin D3) 25 mcg (1,000 unit) tablet 25 mcg PO DAILY Qty: 90 2RF Print Language: Tamazight
[2025-01-24 20:04] VITALS: BP 109/65; PULSE 63; RESP 18; TEMP 36.4; O2SAT 99
--- NOTE | 2025-01-24 20:15 | ECG_ITS ---
Test Reason : DIZZINESS Blood Pressure : */* mmHG Vent. Rate : 51 BPM Atrial Rate : 51 BPM P-R Int : 178 ms QRS Dur : 86 ms QT Int : 484 ms P-R-T Axes : 49 20 20 degrees QTcB Int : 446 ms Sinus bradycardia Otherwise normal ECG When compared with ECG of 09-May-2024 15:14, No significant change was found Referred By: Galileo Morris Electronically Signed By: RADHA SAUCEDO
[2025-01-24 21:05] LABS: MANUAL DIFF FLAG NO
--- OUTSIDE RECORDS SUMMARY | 2025-01-24 22:20 | XMS_ITS | Clinical Summary ---
Author Organization [facility] Address [address] [place] [address] Care Team Providers Care Communication Assistant Name Role Phone Lia Pennington MD Primary Care Provider Unavaila ble Allergies Active Allergy Reactions Criticality Noted Date Comments Lamotrigine Itching 10/01/2023 Peanut Anaphylaxis High 10/01/2023 Tree Nuts Hives 10/01/2023 Medications PARoxetine (PAXIL) 20 mg tablet Take 30 mg by mouth every morning. Active cetirizine (ZyrTEC) 10 mg tablet Take 10 mg by mouth once a day. Active multivitamin (THERAGRAN) tablet Take 1 tablet by mouth once a day. Active cyanocobalamin (vitamin B-12) 1,000 mcg tablet Take 1,000 mcg by mouth once a day. Active Vitamin D3 25 mcg (1,000 unit) capsule Take 1 capsule by mouth once a day. Active busPIRone (BUSPAR) 10 mg tablet Take 10 mg by mouth 3 times a day. Active acetaminophen (TYLENOL) 500 mg tablet Take 500 mg by mouth every 6 hours as needed for pain. Active albuterol (PROAIR HFA,VENTOLIN HFA) 90 mcg inhaler Inhale 2 puffs by mouth every 4 hours as needed for wheezing or shortness of breath. Use with spacer. Active EPINEPHrine (EPIPEN) 0.3 mg/0.3 mL injection syringe Inject 0.3 mg into the outer thigh muscle as directed as needed for anaphylaxis. Active QUEtiapine (SEROquel) 25 mg tablet Take 6.25 mg by mouth nightly as needed (anxiety). Active nystatin (MYCOSTATIN) 100,000 unit/gram powder Apply 1 application. topically to the affected area 2 times a day. Active Social History Tobacco Use Types Packs/Day Years Used Date Smoking Tobacco: Former Cigarettes Smokeless Tobacco: Never Tobacco Cessation:Counseling Given: Not Answered Alcohol Use Standard Drinks/Week Comments Never 0 (1 standard drink = 0.6 oz pur e alcohol) Comments Unknown Sex and Gender Information Value Date Recorded Sex Assigned at Female 10/17/2023 3:36 PM EDT Legal Sex Female 7:18 PM EDT Gender Identity Female 10/17/2023 3:36 PM EDT Sexual Orientation Not on file Last Filed Vital Signs Vital Sign Reading Time Taken Comments Blood Pressure 123/67 10/01/2023 9:06 PM EDT Pulse 78 10/01/2023 9:06 PM EDT Temperature 36.6 C (97.8 F) 10/01/2023 7:00 PM EDT Respiratory Rate 17 10/01/2023 9:06 PM EDT Oxygen Saturation 97% 10/01/2023 9:06 PM EDT Inhaled Oxygen Concentration - - Weight 64 kg (141 lb) 10/01/2023 6:58 PM EDT Height 157.5 cm (5' 2 ) 10/01/2023 6:58 PM EDT Body Mass Index 25.79 10/01/2023 6:58 PM EDT Plan of Treatment Health Maintenance Due Date Last Done Comments Medicare AWV 1949 CT Lung Cancer Screening (Baseline) 1998 Zoster Vaccines (3 of 3) 12/14/20192 020, 09/22/2019, 04/18/2019, Additional history exists Alcohol/Substance Use Screening 02/22/2024 Depression Screening and Follow-Up 02/22/2024 Fall Risk Screening 02/22/2024 Health Care Proxy Review 02/22/2024 Social Drivers of Health Annual Screening 02/22/2024 Influenza Vaccine (#1) 2024 3, 11/23/2021, 10/25/2020, Additional history exists COVID-19 Vaccine ( season) 2024 DTaP,Tdap,and Td Vaccines (3 - Td or Tdap) 02/11/2033 02/11/2023, 04/25/2012, 01/18/2006, Additional history exists Pneumococcal Vaccine: 50+ Years Completed 09/26/2020, 07/01/2015, 02/21/2015, Additional history exists Osteoporosis Screening Completed 10/08/2020 RSV Vaccine (60+ years old and patients) Completed 02/20/2023 Hepatitis C Screening Completed 05/23/2023, 019 Hepatitis B Vaccines Aged Out No long er eligible based on patient's age to complete this topic Insurance MEDICARE [facility] MEDICARE Advance Directives Documents on File Type Date Recorded Patient Casey Saw Operator [facility] Care Proxy 10/01/2023 7:11 PM HCP [facility] 10/01/2023 7:10 PM [facility] Care Teams Communication Assistant Relationship Specialty Start Date End Date Lia Pennington MD PCP - General Geriatric Medicine 10/01/23
--- NOTE | 2025-01-24 22:50 | PC.NURSE ---
assumed care of patient at this time, pending xray results and UA, patient resting in stretcher no apparent distress noted, call umana within reach and able to make needs know
[2025-01-24 23:07] VITALS: BP 114/59; PULSE 48; RESP 16; O2SAT 98
[2025-01-25 00:53] VITALS: BP 103/48; PULSE 59
[2025-01-25 01:27] LABS: Appearance Urine Clear; Glucose Urine UA Negative (Negative); PH 7.0 (5.0-9.0); Specific Gravity - Urine 1.010 (1.005-1.025); UMIC TRIGGER UACC YES
--- NOTE | 2025-01-25 01:27 | MHC.EDTECH ---
This plate hanger ambulated patient to the bathroom without difficulty. Patient denied any headaches, dizziness, nor loss of balance; steady gait. Patient was able to provide urine sample and sent down to lab.
[2025-01-25 01:39] LABS: UACC Culture Trigger YES
[2025-01-25 01:55] VITALS: BP 126/71; PULSE 59; RESP 16; TEMP 36.6; O2SAT 98
[2025-01-25 01:57] VITALS: BP 126/71; PULSE 59; RESP 16; TEMP 36.6; O2SAT 98
== END 2025-01-25 02:55 | disposition home or self-care (01) ==
PROVIDERS: Physician Assistant; Emergency Provider Emergency Medicine; PCP Nurse Practitioner Gerontology
DX: R51.9 Headache, unspecified (principal); M25.522 Pain in left elbow; M25.562 Pain in left knee; W18.30XA Fall on same level, unspecified, initial encounter; Y93.9 Activity, unspecified; Y92.9 Unspecified place or not applicable; Y99.9 Unspecified external cause status; R42 Dizziness and giddiness; N18.31 Chronic kidney disease, stage 3a; F43.10 Post-traumatic stress disorder, unspecified; F42.9 Obsessive-compulsive disorder, unspecified; F31.9 Bipolar disorder, unspecified; M85.80 Other specified disorders of bone density and structure, unspecified site; J44.9 Chronic obstructive pulmonary disease, unspecified; Z87.891 Personal history of nicotine dependence
CPT/HCPCS: 70450; 71045; 72125; 73080; 73560; 80053; 81001; 82550; 83690; 83735; 84484; 85025; 87086; 87637; 93005; 99284; 99285

== ENCOUNTER → 2025-01-24 20:15 | Outpatient (BNV) | payer MEDICARE, SELFPAY | PROVIDERS: Emergency Provider Emergency Medicine; PCP Nurse Practitioner Gerontology; Visit Provider Internal Medicine | DX: R00.1 Bradycardia, unspecified (principal) | CPT/HCPCS: 93010 ==

== ENCOUNTER → 2025-01-24 20:15 | Outpatient (BNV) | payer MEDICARE, MEDICAID, SELFPAY | PROVIDERS: Emergency Provider Emergency Medicine; PCP Nurse Practitioner Gerontology; Visit Provider Student in an Organized Health Care Education/Training Program | DX: Z04.3 Encounter for examination and observation following other accident (principal) | CPT/HCPCS: 70450; 71045; 72125; 73080; 73560 ==